=== PATIENT | female | born 1950 | race Two or more races ===

== ENCOUNTER 2024-11-18 06:30 | Day surgery (SDC) | payer MEDICARE ==
[2024-11-18] VITALS (9 sets, daily range): BP systolic 127–151; BP diastolic 70–81; PULSE 60–67; RESP 12–22; O2SAT 92–96
[~2024-11-18] VITALS: Ht 185.4 cm; Wt 152.0 kg
[~2024-11-18 06:30] MED LIST: CHOL500035 PO; DIGO0.25 PO; ESCI20TA PO; ESTR1TAB6 PO; FURO20TA3 PO; GLYB5TAB8 PO; MAGN400T40 OR; MEDR10TA9 PO; MULT1TAB95 PO; NEBI10TA2 PO
[2024-11-18] MEDS: IODIXANOL 320MG/ML 100ML BTL IV ONE ×2 (07:51→09:38)
[2024-11-18] MEDS: ANGIOMAX 250 MG VIAL IV ONE ×2 (08:56→09:46)
[2024-11-18] MEDS: fentaNYL CITRATE 100 MCG/2 ML VL ONE (08:56)
[2024-11-18] MEDS: HEPARIN SODIUM (PORCINE) 5000 UNITS/ML 1ML VIAL ONE (08:56)
[2024-11-18] MEDS: diphenhdrAMINE HCL 50 MG/1 ML VL ONE (08:56)
[2024-11-18] MEDS: methylPREDNISolone SOD SUCC 125 MG/2 ML VL ONE (08:56)
[2024-11-18] MEDS: VERAPAMIL 2.5MG/ML INJ 2ML VIAL IV ONE (08:56)
[2024-11-18] MEDS: SODIUM CHL 0.9% 50 ML ONE ×2 (08:57→09:46)
[2024-11-18] MEDS: FAMOTIDINE (10MG/ML) 2ML VL IV ONE (08:57)
[2024-11-18] MEDS: MIDAZOLAM HCL 2MG/2ML 2ml VIAL (1mg/ml) ONE (08:57)
[2024-11-18] MEDS: LIDOCAINE 2%HCL (LOCAL ANESTH.) INJ 20ML MDV ONE (08:57)
[2024-11-18] MEDS: ASPirin 81 mg TAB ONE (10:19)
[2024-11-18] MEDS: CLOPIDOGREL BISULFATE 75 MG TAB ONE ×2 (10:19)
--- NOTE | 2024-11-18 10:22 | DVHOP2 ---
Operative Report Procedures performed: Left heart catheterization and bilateral coronary angiogram PCI (drug-eluting stent deployment) of mid LAD Moderate sedation lasting more than 45 minutes Diagnosis: Two-vessel coronary artery disease Mid LAD with focal 85% lesion, status post PCI/drug-eluting stent deployment 1st obtuse marginal was a small-caliber vessel with 90% ostial lesion, to be managed medically 1st diagonal had 90% ostial lesion, to be managed medically LVEF of 50% with LVEDP of 14 mm Hg Cardiac suggestion for management: Dual antiplatelet therapy (loaded with aspirin/Plavix) for at least 1 year High potency statin, beta blockers, GIRISH inhibitor versus ARB Optimized medical therapy Lifestyle and risk factor modifications Findings: LVEF: 50% LVEDP: 14 mm Hg There was no transaortic valve pressure gradient Left main: Left main was coming off the left sinus of Valsalva. There was no disease in left main. LAD: LAD was coming off the left main. Mid LAD had a focal 85% lesion. At the site of the lesion there was a medium-sized diagonal with 90% focal lesion. Second diagonal was a medium-sized vessel with mild diffuse disease. The rest of LAD had mild diffuse disease. LCX: LCX was coming off the left main. It was codominant and provided left posterolateral branch. OM1 was a small-caliber vessel with 90% ostial lesion. OM2 was a large vessel with 40% focal lesion. Left posterolateral branch was a large vessel with mild diffuse disease. LCX itself had mild disease. RCA: RCA was coming off the right sinus of Valsalva. It was codominant and provided RPDA. Proximal RCA had 30% focal lesion. Other portions of RCA and branches revealed mild diffuse disease. Presentation: Patient is a 74-year-old female (transgender from male to female) patient who presented with chest pain to the office. Does have past medical history of pacemaker implantation for sick sinus syndrome, kidney stones, hypertension, CKD, diastolic heart failure, diabetes mellitus, pulmonary hypertension, skin rash and persistent atrial fibrillation. She refuses statins. She refuses mammogram. Has refused full anticoagulation. She has had urethral strictures before. Does have history of morbid obesity and has had gastric bypass before and is to go for skin full removal. Echocardiogram of September 02, 2024 revealed ejection fraction of 55-60%, biatrial enlargement, right ventricular systolic pressure of 40 mm Hg. Because of significant chest discomfort, non responding to medical therapy, she was sent for cardiac catheterization. Procedure: After obtaining informed consent, the patient was brought to the seed analysis laboratory assistant. She was prepped and draped in sterile fashion. Right radial artery was used for access site. 2 mg of Versed and 100 mcg of fentanyl were given for moderate sedation (lasting more than 45 minutes). Patient was also given Benadryl/Solu-Medrol/Pepcid for history of contrast allergy. Using modified Seldinger technique, the right radial artery was accessed and a 6 Panamanian slender sheath was inserted into it. 2.5 mg of verapamil and 200 mcg of nitroglycerin were given as a cocktail into right radial sheath. 5000 units of heparin was given peripherally. Five Panamanian tiger 4 diagnostic catheter was used to perform left heart catheterization (obtaining pressures and performing left ventriculography) and right coronary angiography. A 6 [place]amanian JL 3.5 diagnostic catheter was used to perform left coronary angiography. We did recognize different disease is in the coronary tree. Decision was made to proceed with intervention on the mid LAD lesion. Patient was started on Angiomax. A 6 [place]ian EBU guiding catheter was used to access the left coronary system. A run- through wire was used to cross the lesion. A 2.5 x 12 compliant/for a balloon was used for predilatation. At this point we decided to proceed with implanting the stent. A 2.75 x 18 drug-eluting/amy stent was deployed across the lesion (inflated to 18 atmospheres and making it 3.0 in size) successfully. Repeat angiography revealed well deployed stent. Prior to intervention, BECKY flow in LAD and branches was BECKY 3 flow. Post intervention, BECKY flow into LAD and branches remained BECKY 3 flow. Post intervention, the remaining disease in mid LAD was 0%. Stent deployment resulted in pinching of the diagonal. BECKY flow inside the diagonal remained BECKY 3 flow. Decision was made to manage it medically There was no dissection/hematoma/perforation. Patient tolerated the procedure with no complication. Right radial artery access site was managed by deploying a TR band. Fluoroscopy time: 8.9 minutes contrast: 130 mL of Visipaque ROSINA TEIXEIRA MD Nov 18, 2024 10:22
== END 2024-11-18 12:15 | disposition home or self-care (01) ==
LOC: CATH 06:30
PROVIDERS: ATTEND Internal Medicine Cardiovascular Disease
DX: I25.10 Atherosclerotic heart disease of native coronary artery without angina pectoris (principal); R07.9 Chest pain, unspecified; I49.5 Sick sinus syndrome; I27.20 Pulmonary hypertension, unspecified; I48.19 Other persistent atrial fibrillation; I13.0 Hypertensive heart and chronic kidney disease with heart failure and stage 1 through stage 4 chronic kidney disease, or unspecified chronic kidney disease; I50.32 Chronic diastolic (congestive) heart failure; N18.9 Chronic kidney disease, unspecified; E11.22 Type 2 diabetes mellitus with diabetic chronic kidney disease; E66.01 Morbid (severe) obesity due to excess calories; Z68.41 Body mass index [BMI] 40.0-44.9, adult; Z79.01 Long term (current) use of anticoagulants; Z87.442 Personal history of urinary calculi; Z95.5 Presence of coronary angioplasty implant and graft; Z98.84 Bariatric surgery status; Z98.890 Other specified postprocedural states; Z88.8 Allergy status to other drugs, medicaments and biological substances
CPT/HCPCS: 0523T; 93458; C1725; C1769; C1874; C1887; C1894; C9600; J0583; J1200; J1644; J2250; J2919; J3010; J3490; J7030; Q9967; 99152; 99153

== ENCOUNTER 2025-03-06 15:51 | Inpatient (IN) | payer MEDICARE ==
[~2025-03-06] VITALS: Ht 185.4 cm; Wt 158.0 kg
--- NOTE | 2025-03-06 16:46 | ED.PDOC ---
General HPI Comments 74-year-old female presents to the ED t with a chief complaint of hematuria and dizziness, which began 23 hours ago. The patient, who is a transgender female on hormonal therapy, reports similar symptoms in the past, when she was diagnosed and treated for urosepsis twice at [place]. She awoke today feeling feverish but did not take her temperature. As the day progressed, she became more dizzy and experienced a foggy mindset, which she fears may indicate another UTI. The patient denies any associated chills, abdominal pain, nausea, vomiting, diarrhea, back, or flank pain. Her medical history is significant for diabetes mellitus, hypertension, and the aforementioned urosepsis. She uses a CPAP at night for sleep apnea. She is followed by Dr. Gibson for cardiology, given a history of a pacemaker, PTCA, and a WATCHMAN device. Chief Complaint: Urinary Time Seen by MD: 16:29 Reviewed notes: Nurses Notes, Medications, Allergies Allergies: Uncoded Allergies: IVP dye, Levaquin, Griseofulvin, Montelukast (Allergy, Severe, 11/14/24) Home Meds Reported Medications Medroxyprogesterone Acetate (Medroxyprogesterone Aceta) 10 Mg Tab, 10 MG PO DAILY, MG 11/14/24 Magnesium Oxide (MAGNESIUM OXIDE) 400 Mg Tab, 400 MG OR DAILY, TAB 11/14/24 Cholecalciferol (Vitamin D) 5,000 Unit Cap, 5000 UNIT PO DAILY, CAP 11/14/24 Escitalopram Oxalate (Lexapro) 20 Mg Tab, 1 TAB PO DAILY, #90 TAB 3 Refills 11/14/24 Furosemide (Furosemide) 20 Mg Tab, 20 MG PO DAILY for 30 Days, MG 11/14/24 Multiple Vitamin (Multi Vitamin) 1 Tab Tab, 1 TAB PO DAILY, TAB 11/14/24 Nebivolol Hcl (Bystolic) 10 Mg Tab, 1.5 TAB PO DAILY, #90 TAB 1 Refill 11/14/24 Digoxin (Digoxin) 250 Mcg Tab, 250 MCG PO DAILY, TAB 11/14/24 Estradiol (Estradiol) 1 Mg Tab, 4 MG PO DAILY, MG 11/14/24 Glyburide (Glyburide) 5 Mg Tab, 5 MG PO DAILY for 30 Days, MG 11/14/24 Information Source: Patient Mode of Arrival: Ambulatory Severity: Moderate Timing: Hours (2) Duration: Since onset Onset: Spontaneous History of: UTI Modifying factors: None associated signs and symptoms: Hematuria Past Medical History PAST MEDICAL HISTORY: DM, HTN, UTI'S Surgical History: Pacemaker, PTCA Surgical History (Other): watchman TELE[employer] NETWORK PLANNER History: No 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 History Family History Family History: Reviewed,noncontributory to illness Social History Smoker: Non-Smoker Alcohol: Denies ETOH Use Drugs: Denies Drug Use Lives In: Home Constitutional: denies: chills, diaphoresis, fatigue, fever, malaise, sweats, weakness, others EENTM: denies: blurred vision, double vision, ear bleeding, ear discharge, ear drainage, ear pain, ear ringing, eye pain, eye redness, hearing loss, mouth pain, mouth swelling, nasal discharge, nose bleeding, nose congestion, nose pain, photophobia, tearing, throat pain, throat swelling, voice changes, others Respiratory: denies: cough, hemoptysis, orthopnea, SOB at rest, shortness of breath, SOB with excertion, stridor, wheezing, others Cardiovascular: denies: chest pain, dizzy spells, diaphoresis, Dyspnea on exertion, edema, irregular heart beat, left arm pain, lightheadedness, palpitations, PND, syncope, others Gastrointestinal: denies: abdomen distended, abdominal pain, blood streaked bowels, constipated, diarrhea, dysphagia, difficulty swallowing, hematemesis, melena, nausea, poor appetite, poor fluid intake, rectal bleeding, rectal pain, vomiting, others Genitourinary: reports: hematuria; denies: abnormal vagina bleeding, burning, dyspareunia, dysuria, flank pain, frequency, incontinence, pain, , vagina discharge, urgency, others Neurological: reports: dizziness; denies: fainting, headache, left sided numbness, left sided weakness, numbness, paresthesia, pre-existing deficit, right sided numbness, right sided weakness, seizure, speech problems, tingling, tremors, weakness, others Musculoskeletal: denies: back pain, gout, joint pain, joint swelling, muscle pain, muscle stiffness, neck pain, others Integumetry: denies: bruises, change in color, change in hair/nails, dryness, laceration, lesions, lumps, rash, wounds, others Allergic/Immunocompromised: denies: Difficulty Healing, Frequent Infections, Hives, Itching, others Hematologic/Lymphatic: denies: anemia, blood clots, easy bleeding, easy br uising, swollen glands, others Endocrine: denies: excessive hunger, excessive sweating, excessive thirst, excessive urination, flushing, intolerance to cold, intolerance to heat, unexplained weight gain, unexplained weight loss, others Psychiatric: denies: anxiety, bipolar disorder, depression, hopeless, panic disorder, schizophrenia, sleepless, suicidal, others All Other Systems: Reviewed and Negative Physical Exam General Appearance: Moderate Distress HEENT: Normal ENT Inspection, Pharynx Normal, TMs Normal Neck: Full Range of Motion, Non-Tender, Normal, Normal Inspection Respiratory: Chest Non-Tender, Lungs Clear, No Accessory Muscle Use, No Respiratory Distress, Normal Breath Sounds Cardiovascular: No Edema, No JVD, No Murmur, No Gallop, Normal Peripheral Pulses, Regular Rate/Rhythm Breast Exam: Deferred Gastrointestinal: No Organomegaly, Non Tender, No Pulsatile Mass, Normal Bowel Sounds, Soft Genitalia: Deferred Pelvic: Deferred Rectal: Deferred Extremities: No calf tenderness, Normal capillary refill, Normal inspection, Normal range of motion, Non-tender, No pedal edema Musculoskeletal : Apperance: Normal Neurologic: Alert, cash management clerk II-XII nml as Tested, No Motor Deficits, Normal Affect, Normal Mood, No Sensory Deficits Cerebellar Function: NOT DONE Reflexes: NOT DONE Skin: Dry, Normal Color, Warm Peripheral Pulses: 3+ Radial (R), 3+ Radial (L) Lymphatic: No Adenopathy Was a procedure done? Was a procedure done?: No Differential Diagnosis Kidney stone (Female): N/A Urinary Problem (Female): Pyelonephritis, Urinary retention, Urolithiasis, UTI, Vaginitis X-Ray, Labs, Meds, VS Vital Signs Date Time Temp Pulse Resp B/P (MAP) Pulse Ox O2 Delivery O2 Flow Rate FiO2 03/06/25 15:56 98.2 62 18 151/74 96 98.2 Patient alert. Came in because of urinary symptoms. Vitals stable. Answering questions. Possible urosepsis. Possible pyelonephritis. Urinary frequency. Patient states that similar symptoms the caused him to be septic. Establish intravenous access. Was given Bactrim. Explained to the patient. Continue monitoring. Time of 1ST Reevaluation: 16:34 Reevaluation 1ST: Unchanged Patient Education/Counseling: Diagnosis, Treatment, Prognosis Family Education/Counseling: Diagnosis, Treatment, Prognosis SEPSIS Sepsis Screen Date sepsis recognized/suspect: Mar 06, 2025 Time Sepsis recognized/suspect: 1556 Recent Procedure: No On Antibiotic Therapy: No Respiratory Rate >20: No Heart Rate >90: No Temp<36 C (96.8 F) or >38.3 C: No SBP <90 or MAP <65 mmHG: No New Acute Mental Status Change: No Is the patient on CPAP, BIPAP,: No Physician Orders Complete Blood Count (03/06/25 16:38) Urinalysis (03/06/25 16:38) Basic Metabolic Panel (03/06/25 16:38) Sodium Chloride 0.9% (03/06/25 16:45) Sulfameth-Trimeth 80/16mg-Ml (Bactrim) (03/06/25 16:45) Vital Signs Date Time Temp Pulse Resp B/P (MAP) Pulse Ox O2 Delivery O2 Flow Rate FiO2 03/06/25 15:56 98.2 62 18 151/74 96 98.2 Departure 1 Departure Time of Disposition: 17:04 Impression: Primary Impression: Sepsis due to urinary tract infection Disposition: ADMITTED INPATIENT Admit to: Med Surg Condition: Guarded Critical Care Note Critical Care Time?: No Stability Stability form required: No I personally scribed for MONTSERRAT BROWN MD ([email or web address]) on 03/06/25 at 16:46. Electronically submitted by Betty Alcaraz ([facility]). MONTSERRAT BROWN MD Mar 06, 2025 16:46
[2025-03-06] MEDS: SODIUM CHLORIDE 0.9% 1,000 ML IV ONE (17:29)
[2025-03-06 17:41] LABS: Hematocrit 39.2 % (36.0-46.0); Hemoglobin 13.1 g/dL (12.2-16.2); Mean Corpuscular Hemoglobin 29.0 pg (28.0-32.0); Mean Corpuscular Volume 87.3 fL (80.0-100.0); Nucleated Red Blood Cells % 0.1 %
[2025-03-06 17:48] LABS: Potassium 4.4 mmol/L (3.5-5.1); Sodium 142 mmol/L (136-145)
[2025-03-06 17:49] LABS: Anion Gap 10 (5-15); Carbon Dioxide 25 mmol/L (20-31)
[2025-03-06 17:53] LABS: Calcium 8.3 mg/dL (8.7-10.4); Chloride 107 mmol/L (98-107)
[2025-03-06 17:55] LABS: BUN/Creatinine Ratio 13.5 (10.0-20.0); Blood Urea Nitrogen 13 mg/dL (9-23)
[2025-03-06 17:58] LABS: Glucose 123 mg/dL (74-106)
[2025-03-06] MEDS ORDERED: ONDANSETRON HCL 4 MG/2 ML VIAL IV PRN (20:15)
[2025-03-06] MEDS: SULFAMETH-TRIMETH 80/16MG-ML 15 ML in D5W 5% 500 ML IV ONE (20:53)
[2025-03-06 21:02] LABS: Urine Protein, UAD TRACE (Negative)
[2025-03-06] MEDS: METOPROLOL TARTRATE 25 MG TAB PO SCH (23:00)
--- NOTE | 2025-03-06 23:13 | DVHHP2 ---
History of Present Illness Reason for Visit: Hematuria History of Present Illness 74-year-old female presents for evaluation of hematuria. Transgender female on hormone therapy reports a one day history of developing blood in the urine with associated chills, diaphoresis, headache. He states having a history of pr evious sepsis episodes from urinary tract infections in the symptoms seemed similar so she presented for further evaluation. No cardiac or respiratory complaints. Past Medical History Hypertension, diabetes mellitus, UTI Past Surgical History PTCA and pacemaker Family History Noncontributory Smoke: No ALCOHOL: none Drugs: None Lives: with Family Review of Systems Review of Systems Review of systems are currently negative otherwise addressed in HPI. Allergies: Uncoded Allergies: IVP dye, Levaquin, Griseofulvin, Montelukast (Allergy, Severe, 11/14/24) Medications Current Medications Medications Dose Ordered Sig/Kerry Route Start Time Stop Time Status Last Admin Dose Admin Ceftriaxone Sodium 50 ml @ 100 mls/hr DAILY@09 IV 03/07/25 09:00 Metoprolol Tartrate 25 mg BID PO 03/06/25 22:00 Furosemide 20 mg DAILY PO 03/07/25 10:00 Estradiol 4 mg DAILY PO 03/07/25 10:00 Digoxin 0.25 mg DAILY PO 03/07/25 10:00 Clopidogrel Bisulfate 75 mg DAILY PO 03/07/25 10:00 Aspirin 81 mg DAILY PO 03/07/25 10:00 Acetaminophen/ Hydrocodone Bitart 1 tab Q4HP PRN PO 03/06/25 20:15 Ondansetron HCl 4 mg Q4HP PRN IV 03/06/25 20:15 Acetaminophen 650 mg Q6HP PRN PO 03/06/25 20:15 Exam Vital Signs Vital Signs Date Time Temp Pulse Resp B/P (MAP) Pulse Ox O2 Delivery O2 Flow Rate FiO2 03/06/25 22:17 Room Air* 0 21 03/06/25 20:41 97.8 59 18 156/78 (104) 97 97.8 Exam Gen: 74-year-old female in mild distress Skin: Warm, dry, normal color and texture, no rash. HEENT: Normocephalic atraumatic, mucous membranes moist and pink. Neck: Cervical and supraclavicular nodes normal without enlargement, trachea is midline, thyroid gland is normal without masses. Pulmonary: Clear to auscultation and percussion bilaterally. Cardiac: Regular rate and rhythm. No murmur Abdomen: Soft, nontender, nondistended, bowel sounds present all 4 quadrants, no guarding, no rigidity, no organomegaly. Extremities: No cyanosis, clubbing, no edema Neuro: Cranial nerves II through XII grossly intact, normal affect and speech, no focal motor deficits. Labs/Xrays Labs Test 03/06/25 19:50 03/06/25 17:12 Range/Units Urine Color Yellow Yellow Urine Clarity Clear Clear Urine pH 5.5 5.0-9.0 Urine Specific [place] 1.024 1.001-1.035 Urine Protein Trace H Negative Urine Ketones Negative Negative Urine Blood 3+ H Negative /uL Urine Nitrite Negative Negative Urine Bilirubin Negative Negative Urine Urobilinogen 2 H Negative mg/dL Urine Leukocyte Esterase 2+ Negative /uL Urine RBC 485 0 - 4 /hpf Urine Microscopic WBC 21 H 0-5 /HPF Urine Squamous Epithelial Cells Few <5 /hpf Urine Bacteria None seen None Seen /hpf Urine Mucus Few None Seen Urine Glucose Normal Normal mg/dL White Blood Count 7.9 4.4-10.8 10^3/uL Red Blood Count 4.49 4.0-5.20 10^6/uL Hemoglobin 13.1 12.2-16.2 g/dL Hematocrit 39.2 36.0-46.0 % Mean Corpuscular Volume 87.3 80.0-100.0 fL Mean Corpuscular Hemoglobin 29.0 28.0-32.0 pg Mean Corpuscular Hemoglobin Concent 33.3 32.0-36.0 g/dL Red Cell Distribution Width 14.5 H 11.8-14.3 % Platelet Count 226 140-450 10^3/uL Mean Platelet Volume 8.1 6.9-10.8 fL Neutrophils (%) (Auto) 61.0 37.0-80.0 % Lymphocytes (%) (Auto) 27.9 10.0-50.0 % Monocytes (%) (Auto) 8.8 0.0-12.0 % Eosinophils (%) (Auto) 1.9 0.0-7.0 % Basophils (%) (Auto) 0.4 0.0-2.0 % Neutrophils # (Auto) 4.8 1.6-8.6 10 ^3/uL Lymphocytes # (Auto) 2.2 0.4-5.4 10 ^3/uL Monocytes # (Auto) 0.7 0-1.3 10 ^3/uL Eosinophils # (Auto) 0.2 0-0.8 10 ^3/uL Basophils # (Auto) 0 0-0.2 10 ^3/uL Nucleated Red Blood Cells 0.1 % Sodium Level 142 136-145 mmol/L Potassium Level 4.4 3.5-5.1 mmol/L Chloride Level 107 98-107 mmol/L Carbon Dioxide Level 25 20-31 mmol/L Anion Gap 10 5-15 Blood Urea Nitrogen 13 9-23 mg/dL Creatinine 0.96 0.550-1.02 mg/dL Glomerular Filtration Rate Calc 62 >90 mL/min BUN/Creatinine Ratio 13.5 10.0-20.0 Serum Glucose 123 H 74-106 mg/dL Calcium Level 8.3 L 8.7-10.4 mg/dL SEPSIS Sepsis Screen Date sepsis recognized/suspect: Mar 06, 2025 Time Sepsis recognized/suspect: 1555 Recent Procedure: No On Antibiotic Therapy: No Respiratory Rate >20: No Heart Rate >90: No Temp<36 C (96.8 F) or >38.3 C: No SBP <90 or MAP <65 mmHG: No New Acute Mental Status Change: No Is the patient on CPAP, BIPAP,: No Physician Orders Ceftriaxone 1gm/50ml (Rocephin) (03/07/25 09:00) Urine Bacterial Culture (03/06/25 20:10) Communication Order (03/06/25 20:10) Furosemide Tablet (Lasix Tablet) (03/07/25 10:00) Estradiol Tablet (Estrace Tablet) (03/07/25 10:00) Digoxin Tablet (Lanoxin Tablet) (03/07/25 10:00) Clopidogrel Bisulfate (Plavix) (03/07/25 10:00) Aspirin Tablet (03/07/25 10:00) Basic Metabolic Panel (03/07/25 04:00) Hydrocodone-Acet 5/325mg Tab ([place] 5/32 (03/06/25 20:15) Ondansetron Hcl (Zofran) (03/06/25 20:15) Complete Blood Count (03/07/25 04:00) Cardiac Diet-2gna,Lofat,Lochol (03/07/25 Breakfast) Condition: Stable (03/06/25 20:10) Acetaminophen Tablet (Tylenol Tablet) (03/06/25 20:15) Bedrest With Bathroom Privileg (03/06/25 20:10) Admit (03/06/25 21:19) Metoprolol Tartrate Tablet (Lopressor Ta (03/06/25 22:00) Vital Signs Date Time Temp Pulse Resp B/P (MAP) Pulse Ox O2 Delivery O2 Flow Rate FiO2 03/06/25 22:17 Room Air* 0 21 03/06/25 20:41 97.8 59 18 156/78 (104) 97 97.8 03/06/25 15:56 98.2 62 18 151/74 96 98.2 Laboratory Tests Test 03/06/25 17:12 White Blood Count 7.9 10^3/uL (4.4-10.8) Medications Medications Dose Ordered Sig/Kerry Route Start Time Stop Time Status Last Admin Dose Admin Sodium Chloride 1,000 ml @ 1,000 mls/hr Q1H ONCE IV 03/06/25 16:45 03/06/25 17:44 DC 03/06/25 17:29 1,000 MLS/HR Trimethoprim/ Sulfamethoxazole 15 ml/Dextrose 515 ml @ 171.667 mls/hr ONCE ONCE IV 03/06/25 16:45 03/06/25 19:44 DC 03/06/25 20:53 171.667 MLS/HR Assessment/Plan Assessment/Plan Assessment Complicated UTI Hematuria Diabetes mellitus Hypertension Plan Admit the patient to Med surge to the hospitalist Dieter/urine bacterial culture pending Resume home medications Continue treatment per orders. Plan discussed with: Patient My Orders Orders - CLOVIS SCHAFFER [facility] Procedure Category Date Status Time Ceftriaxone 1gm/50ml PHA 03/07/25 In Process (Rocephin) 09:00 Urine Bacterial MCKENNA 03/06/25 In Process Culture 20:10 Communication Order ORDERS 03/06/25 Transmitted 20:10 Furosemide Tablet PHA 03/07/25 In Process (Lasix Tablet) 10:00 Estradiol Tablet PHA 03/07/25 In Process (Estrace Tablet) 10:00 Digoxin Tablet PHA 03/07/25 In Process (Lanoxin Tablet) 10:00 Clopidogrel Bisulfate PHA 03/07/25 In Process (Plavix) 10:00 Aspirin Tablet PHA 03/07/25 In Process 10:00 Basic Metabolic Panel LAB 03/07/25 Verified 04:00 Hydrocodone-Acet PHA 03/06/25 In Process 5/325mg Tab ([place] 20:15 Ondansetron Hcl PHA 03/06/25 In Process (Zofran) 20:15 Complete Blood Count LAB 03/07/25 Verified 04:00 Cardiac DIET 03/07/25 Transmitted Diet-2gna,Lofat,Lochol Breakfast Condition: Stable SRINIVAS 03/06/25 In Process 20:10 Acetaminophen Tablet PHA 03/06/25 In Process (Tylenol Tablet) 20:15 Bedrest With Bathroom SRINIVAS 03/06/25 In Process Privileg 20:10 Admit ADMIT 03/06/25 Transmitted 21:19 Metoprolol Tartrate PHA 03/06/25 In Process Tablet (Lopressor Ta 22:00 Date of Service: Mar 06, 2025 Billing Provider: CLOVIS SCHAFFER Common Visit Codes: [id number] INP/OBS CARE (MOD) CLOVIS SCHAFFER Mar 06, 2025 23:12
[2025-03-06 23:55] VITALS: BP 153/83; PULSE 66; RESP 18; TEMP 98.6; O2SAT 96
[2025-03-07] MEDS: ACETAMINOPHEN 325 MG TAB PO PRN (00:15)
[2025-03-07] MEDS ORDERED: MAGN400T40 (00:37)
[2025-03-07] MEDS ORDERED: DOXE10CA34 PO (00:37)
[2025-03-07] MEDS ORDERED: FURO20TA3 PO (00:37)
[2025-03-07] MEDS ORDERED: CLOP75TA28 PO (00:37)
[2025-03-07 01:00] VITALS: BP 124/70; PULSE 63; RESP 18; TEMP 98.1; O2SAT 96
[2025-03-07 05:00] VITALS: BP 123/69; PULSE 76; RESP 15; TEMP 98.1; O2SAT 98
[2025-03-07 07:25] LABS: Hematocrit 40.0 % (36.0-46.0); Hemoglobin 13.3 g/dL (12.2-16.2); Mean Corpuscular Hemoglobin 29.4 pg (28.0-32.0); Mean Corpuscular Volume 87.9 fL (80.0-100.0); Nucleated Red Blood Cells % 0.0 %
[2025-03-07 07:36] LABS: Chloride 104 mmol/L (98-107); Potassium 4.1 mmol/L (3.5-5.1); Sodium 139 mmol/L (136-145)
[2025-03-07 07:37] LABS: Anion Gap 10 (5-15); Carbon Dioxide 25 mmol/L (20-31)
[2025-03-07 07:42] LABS: BUN/Creatinine Ratio 10.6 (10.0-20.0); Blood Urea Nitrogen 10 mg/dL (9-23); Calcium 8.1 mg/dL (8.7-10.4); Glucose 127 mg/dL (74-106)
[2025-03-07 09:00] VITALS: BP 122/60; PULSE 72; RESP 20; TEMP 97.7; O2SAT 97
[2025-03-07] MEDS: CLOPIDOGREL BISULFATE 75 MG TAB PO SCH (09:53)
[2025-03-07] MEDS: DIGOXIN 0.125 MG TAB PO SCH (09:56)
[2025-03-07] MEDS: FUROSEMIDE 20 MG TAB PO SCH (10:00)
[2025-03-07] MEDS: ESTRADIOL 1 MG TAB PO SCH (10:11)
[2025-03-07 12:59] VITALS: BP 166/72; PULSE 70; RESP 20; TEMP 99.3; O2SAT 98
--- NOTE | 2025-03-07 13:28 | DVHPN2 ---
Reviewed: Care Plan, H&P, Labs, Medications, Previous Orders, Radiology Changes from previous H/P or p: No Changes Objective Vitals Vital Signs Date Time Temp Pulse Resp B/P (MAP) Pulse Ox O2 Delivery O2 Flow Rate FiO2 03/07/25 12:59 99.3 70 20 166/72 (103) 98 99.3 03/06/25 23:55 Room Air* 0 21 Intake/Output Intake and Output 03/07/25 07:00 Intake Total 1915 ml Balance 1915 ml Intake Oral 400 ml IV Total 1515 ml # Voids 3 Medications Current Medications Medications Dose Ordered Sig/Kerry Route Start Time Stop Time Status Last Admin Dose Admin Ceftriaxone Sodium 50 ml @ 100 mls/hr DAILY@09 IV 03/07/25 09:00 03/07/25 09:53 100 MLS/HR Metoprolol Tartrate 25 mg BID PO 03/06/25 22:00 Furosemide 20 mg DAILY PO 03/07/25 10:00 Estradiol 4 mg DAILY PO 03/07/25 10:00 03/07/25 10:11 4 MG Digoxin 0.25 mg DAILY PO 03/07/25 10:00 03/07/25 09:56 0.25 MG Clopidogrel Bisulfate 75 mg DAILY PO 03/07/25 10:00 03/07/25 09:53 75 MG Aspirin 81 mg DAILY PO 03/07/25 10:00 03/07/25 09:54 81 MG Acetaminophen/ Hydrocodone Bitart 1 tab Q4HP PRN PO 03/06/25 20:15 Ondansetron HCl 4 mg Q4HP PRN IV 03/06/25 20:15 Acetaminophen 650 mg Q6HP PRN PO 03/06/25 20:15 03/07/25 00:15 650 MG Laboratory Results Laboratory Tests 03/07/25 06:17 Chemistry Test 03/06/25 17:12 03/07/25 06:17 Calcium Level 8.3 mg/dL (8.7-10.4) L 8.1 mg/dL (8.7-10.4) L Urinalysis Test 03/06/25 19:50 Urine Color Yellow (Yellow) Urine Clarity Clear (Clear) Urine pH 5.5 (5.0-9.0) Urine Specific [place] 1.024 (1.001-1.035) Urine Protein Trace (Negative) H Urine Ketones Negative (Negative) Urine Blood 3+ /uL (Negative) H Urine Nitrite Negative (Negative) Urine Bilirubin Negative (Negative) Urine Urobilinogen 2 mg/dL (Negative) H Urine Leukocyte Esterase 2+ /uL (Negative) Urine RBC 485 /hpf (0 - 4) Urine Microscopic WBC 21 /HPF (0-5) H Urine Squamous Epithelial Cells Few /hpf (<5) Urine Bacteria None seen /hpf (None Seen) Urine Mucus Few (None Seen) Urine Glucose Normal mg/dL (Normal) Labs and/or images reviewed: Labs reviewed by me, Image(s) reviewed by me Assessment/Plan Assessment/Plan Sepsis secondary to complicated UTI: Blood cultures urine cultures Rocephin Hematuria: CT abdomen pelvis without contrast, urology consult for Dr. Whitman Diabetes type 2 Hypertension: Metoprolol History of NE status post stents Possible congestive heart failure consult for patient's junction maker Dr. Mcginnis History of pacemaker Transgender female on hormone therapy Time spent 70 minutes Advanced care planning time 20 minutes Patient is full code Plan discussed with: Patient My Orders Orders - ORLANDO BOUCHER MD Procedure Category Date Status Time Blood Culture MCKENNA 03/07/25 Verified 13:21 Date of Service: Mar 07, 2025 Billing Provider: ORLANDO BOUCHER MD Common Visit Codes: [id number] CARE 30-74 MIN ORLANDO BOUCHER MD Mar 07, 2025 13:28
--- NOTE | 2025-03-07 15:02 | DVH ---
EXAM: CT CT AB PEL WO CON-NO ORAL OR IV INDICATION: Hematuria TECHNIQUE: Volumetric multidetector CT images of the abdomen and pelvis were obtained without contras t. All CT scans at this facility use dose modulation, iterative reconstruction, and/or weight based d osing when appropriate to reduce radiation dose to as low as reasonably achievable. COMPARISON: None FINDINGS: [LOWER CHEST]: Atelectasis in the right lung base. Left atrial appendage occlusion device. The cardia c size is normal without pericardial effusion. coronary artery calcifications. [LIVER]: Normal hepatic size without suspicious focal lesion. [GALLBLADDER AND BILIARY TREE]: No cholelithiasis. [SPLEEN]: Unremarkable. [PANCREAS]: Unremarkable. [ADRENAL GLANDS]: Unremarkable [KIDNEYS]: No hydronephrosis. No nephroureterolithiasis. [BLADDER]: Unremarkable for the degree distention. [REPRODUCTIVE ORGANS]: Hysterectomy [BOWEL/MESENTERY]: Postsurgical changes to the stomach. Normal appendix. No CT evidence of bowel obst ruction. [ASCITES]: Absent [LYMPHADENOPATHY]: No pathologically enlarged lymph nodes by CT size criteria [VASCULATURE]: No aneurysmal dilatation. [ABDOMINAL WALL]: Unremarkable. [MUSCULOSKELETAL]: No acute fracture or aggressive focal osseous lesion. Multifocal degenerative zuleta ge of the visualized spine. IMPRESSION: 1. No CT evidence of an acute abdominal/pelvic process. 2. No hydroureteronephrosis or nephroureterolithiasis. 3. Bladder is decompressed. 4. Minimal asymmetric right [id number]-left perinephric edema which may reflect acute kidney injury.
--- NOTE | 2025-03-07 16:26 | DVHINCON2 ---
Date of service: Mar 07, [address] Boucher Reason for Consultation hematuria History of Present Illness History Source: Patient, RN Notes, MD Notes Exam Limitations: No limitations HPI 74 yo transgender female on estradiol and progesterone with PMH of DM, HTN, pacemaker, sleep apnea, CAD with Watchman device placement on aspirin and plavix presents with urinary complaints. patient also has home oxygen. [place] feverish at home with chills and dysuria. Nursing note observed scant reddish brown staining on pad but urine was clear. Home Meds Reported Medications Escitalopram Oxalate (Lexapro) 20 Mg Tab, 15 MG PO DAILY, TAB 03/07/25 Magnesium Oxide (MAGNESIUM OXIDE) 400 Mg Tab, TAB 03/07/25 Clopidogrel Bisulfate (Plavix) 75 Mg Tab, 75 MG PO DAILY, TAB 03/07/25 Doxepin HCl (Doxepin Hydrochloride) 10 Mg Cap, 10 MG PO, CAP 03/07/25 Furosemide (Furosemide) 20 Mg Tab, 1 TAB PO Sunday Fr, #90 TAB 1 Refill 03/07/25 Medroxyprogesterone Acetate (Medroxyprogesterone Aceta) 10 Mg Tab, 10 MG PO DAILY, MG 11/14/24 Cholecalciferol (Vitamin D) 5,000 Unit Cap, 5000 UNIT PO DAILY, CAP 11/14/24 Multiple Vitamin (Multi Vitamin) 1 Tab Tab, 1 TAB PO DAILY, TAB 11/14/24 Nebivolol Hcl (Bystolic) 10 Mg Tab, 1.5 TAB PO DAILY, #90 TAB 1 Refill 11/14/24 Digoxin (Digoxin) 250 Mcg Tab, 250 MCG PO DAILY, TAB 11/14/24 Glyburide (Glyburide) 5 Mg Tab, 5 MG PO DAILY for 30 Days, MG 11/14/24 Discontinued Reported Medications Magnesium Oxide (MAGNESIUM OXIDE) 400 Mg Tab, 400 MG OR DAILY, TAB 11/14/24 Escitalopram Oxalate (Lexapro) 20 Mg Tab, 1 TAB PO DAILY, #90 TAB 3 Refills 11/14/24 Furosemide (Furosemide) 20 Mg Tab, 20 MG PO DAILY for 30 Days, MG 11/14/24 Estradiol (Estradiol) 1 Mg Tab, 4 MG PO DAILY, MG 11/14/24 Past Medical History Cardiac: AFIB, CHF, HTN, Cardiomyopathy Psychiatric: Depression, Other (hx of suicidal ideations) Renal/: UTI, Hematuria Past Surgical History: Cystoscopy, PTCA, Other (orchiectomy, lithotripsy, urethral dilation, bariatric surgery) Patient Family History: FH: Parkinson's disease FH: atrial fibrillation FH: colon cancer FH: hypertension FH: total knee replacement Sepsis Smoker: Quit Alocohol: None Drugs: None Domestic Violence: Neg Review of Systems Constitutional: Fever Genitourinary: Hematuria, Pain H&P Exam Vital Signs Vital Signs Date Time Temp Pulse Resp B/P (MAP) Pulse Ox O2 Delivery O2 Flow Rate FiO2 03/07/25 12:59 99.3 70 20 166/72 (103) 98 99.3 03/06/25 23:55 Room Air* 0 21 General Appeara: Well developed, Well nourished, Normal Appearance, Obese Pulmonary/Respiratory: Normal inspection, Normal breath sounds, Chest non- tender, Lungs clear Cardiovascular/Chest: Normal inspection, Regular rate, Normal Rhythm Neuro/Mental St: Alert, Oriented Appearance: Appropriate appearance, Appropriate insight Eye contact/ Speech: Cooperative, Good eye contact, Normal speech Labs/Xrays [place] [address] Ph: [phone] DIAGNOSTIC IMAGING Diagnostic Imaging Report : [id number] Signed PATIENT: JUAN MANUEL CHAVEZ ACCT: [id number] UNIT: [id number] : 1950 LOC: CENTRAL ROOM / BED: [facility] / AGE / SEX: 74 / F ADM STATUS: ADM IN SERVICE 1322 ORDERING PHYSICIAN: ORLANDO BOUCHER MD PROCEDURE(s): ABPL - CT AB PEL WO CON-NO ORAL OR IV REASON: Hematuria ORDER NUMBER(s): [id number], ACCESSION NUMBER(s): [id number] EXAM: CT CT AB PEL WO CON-NO ORAL OR IV INDICATION: Hematuria TECHNIQUE: Volumetric multidetector CT images of the abdomen and pelvis were obtained without contrast. All CT scans at this facility use dose modulation, iterative reconstruction, and/or weight based dosing when appropriate to reduce radiation dose to as low as reasonably achievable. COMPARISON: None FINDINGS: [LOWER CHEST]: Atelectasis in the right lung base. Left atrial appendage occlusion device. The cardiac size is normal without pericardial effusion. coronary artery calcifications. [LIVER]: Normal hepatic size without suspicious focal lesion. [GALLBLADDER AND BILIARY TREE]: No cholelithiasis. [SPLEEN]: Unremarkable. [PANCREAS]: Unremarkable. [ADRENAL GLANDS]: Unremarkable [KIDNEYS]: No hydronephrosis. No nephroureterolithiasis. [BLADDER]: Unremarkable for the degree distention. [REPRODUCTIVE ORGANS]: Hysterectomy [BOWEL/MESENTERY]: Postsurgical changes to the stomach. Normal appendix. No CT evidence of bowel obstruction. [ASCITES]: Absent [LYMPHADENOPATHY]: No pathologically enlarged lymph nodes by CT size criteria [VASCULATURE]: No aneurysmal dilatation. [ABDOMINAL WALL]: Unremarkable. [MUSCULOSKELETAL]: No acute fracture or aggressive focal osseous lesion. Multifocal degenerative change of the visualized spine. IMPRESSION: 1. No CT evidence of an acute abdominal/pelvic process. 2. No hydroureteronephrosis or nephroureterolithiasis. 3. Bladder is decompressed. 4. Minimal asymmetric right dqkbq-fosgfwr-wtfh-left perinephric edema which may reflect acute kidney injury. ATED BY: VAELNTE SYLVESTER MD DICTATED DATE/TIME: 03/07/25 1459 SIGNED BY: VALENTE SYLVESTER MD SIGNED DATE/TIME: 03/07/25 145 CC: Labs Test 03/07/25 06:17 03/06/25 19:50 Range/Units White Blood Count 9.8 4.4-10.8 10^3/uL Red Blood Count 4.55 4.0-5.20 10^6/uL Hemoglobin 13.3 12.2-16.2 g/dL Hematocrit 40.0 36.0-46.0 % Mean Corpuscular Volume 87.9 80.0-100.0 fL Mean Corpuscular Hemoglobin 29.4 28.0-32.0 pg Mean Corpuscular Hemoglobin Concent 33.4 32.0-36.0 g/dL Red Cell Distribution Width 14.2 11.8-14.3 % Platelet Count 200 140-450 10^3/uL Mean Platelet Volume 8.2 6.9-10.8 fL Neutrophils (%) (Auto) 88.9 H 37.0-80.0 % Lymphocytes (%) (Auto) 4.7 L 10.0-50.0 % Monocytes (%) (Auto) 4.9 0.0-12.0 % Eosinophils (%) (Auto) 1.1 0.0-7.0 % Basophils (%) (Auto) 0.4 0.0-2.0 % Neutrophils # (Auto) 8.7 H 1.6-8.6 10 ^3/uL Lymphocytes # (Auto) 0.5 0.4-5.4 10 ^3/uL Monocytes # (Auto) 0.5 0-1.3 10 ^3/uL Eosinophils # (Auto) 0.1 0-0.8 10 ^3/uL Basophils # (Auto) 0 0-0.2 10 ^3/uL Nucleated Red Blood Cells 0.0 % Sodium Level 139 136-145 mmol/L Potassium Level 4.1 3.5-5.1 mmol/L Chloride Level 104 98-107 mmol/L Carbon Dioxide Level 25 20-31 mmol/L Anion Gap 10 5-15 Blood Urea Nitrogen 10 9-23 mg/dL Creatinine 0.94 0.550-1.02 mg/dL Glomerular Filtration Rate Calc 64 >90 mL/min BUN/Creatinine Ratio 10.6 10.0-20.0 Serum Glucose 127 H 74-106 mg/dL Calcium Level 8.1 L 8.7-10.4 mg/dL Urine Color Yellow Yellow Urine Clarity Clear Clear Urine pH 5.5 5.0-9.0 Urine Specific [place] 1.024 1.001-1.035 Urine Protein Trace H Negative Urine Ketones Negative Negative Urine Blood 3+ H Negative /uL Urine Nitrite Negative Negative Urine Bilirubin Negative Negative Urine Urobilinogen 2 H Negative mg/dL Urine Leukocyte Esterase 2+ Negative /uL Urine RBC 485 0 - 4 /hpf Urine Microscopic WBC 21 H 0-5 /HPF Urine Squamous Epithelial Cells Few <5 /hpf Urine Bacteria None seen None Seen /hpf Urine Mucus Few None Seen Urine Glucose Normal Normal mg/dL Microbiology Date/Time Source Procedure Growth Status 03/06/25 19:50 Voided Urine Urine Culture - Preliminary Resulted Assessment/Plan Problem List: (1) Transgender woman on hormone therapy (2) UTI (urinary tract infection) Plan treat UTI outpt f/u urology Plan discussed with: Patient, Other FELICIA WEST NP Mar 07, 2025 16:26
[2025-03-07 16:57] VITALS: PULSE 77; RESP 20; TEMP 97.9; O2SAT 96
[2025-03-07 21:00] VITALS: BP 124/54; PULSE 67; RESP 18; TEMP 97.9; O2SAT 97
--- NOTE | 2025-03-07 22:59 | DVHINCON2 ---
Date of service: Mar 07, 2025 Reason for Consultation Pacemaker, Atrial fibrillation History of Present Illness The patient is a 74-year-old transgender female who initially presented to the emergency department on 03/06/2025 with hematuria and dizziness. She reported that these symptoms began two to three hours prior to arrival. She described experiencing similar symptoms in the past, during which she was admitted for urosepsis at [facility]. On the day of presentation, she awoke feeling feverish, dizzy, and mentally foggy, which she feared could indicate another urinary tract infection. She denies chest pain, shortness of breath, or palpitations at present. Laboratory evaluation revealed a hemoglobin of 13.1 g/dL, potassium 4.4 mmol/L, creatinine 0.96 mg/dL, and GFR 62 mL/min/1.73 m. Urinalysis showed the presence of blood, leukocyte esterase, and trace protein. CT of the abdomen and pelvis demonstrated no acute abdominal or pelvic process, no hydronephrosis or hydroureter lithiasis, and a decompressed bladder. There was minimal asymmetric perinephric edema, greater on the right than the left, which may reflect acute kidney injury. Her past medical history is significant for atrial fibrillation status post Watchman device and no longer on anticoagulation, coronary artery disease on DAPT, chronic kidney disease, pulmonary hypertension, and sick sinus syndrome with a [employer] Rupesh pacemaker. Cardiology was consulted to manage cardiac aspects of care Outpatient echocardiogram (08/2024) shows an ejection fraction of 59%. Left heart catheterization and coronary angiogram (11/2024) revealed two-vessel coronary artery disease with a mid left anterior descending artery focal 85% lesion treated with percutaneous coronary intervention and drug-eluting stent deployment. The first obtuse marginal branch was noted to have a small caliber vessel with a 90% ostial lesion to be managed medically. The first diagonal branch had a 90% ostial lesion also to be managed medically. Left ventricular ejection fraction was measured at 50% with a left ventricular end-diastolic pressure of 14 mmHg. Patient was recommended to remain on dual antiplatelet therapy for at least one year Family History: FH: Parkinson's disease FH: atrial fibrillation FH: colon cancer FH: hypertension FH: total knee replacement Sepsis Allergies: Coded Allergies: Metoprolol (Verified Adverse Reaction, Unknown, 03/07/25) States that she had reaction to Metoprolol before, forgot what reaction was. Uncoded Allergies: IVP dye, Levaquin, Griseofulvin, Montelukast (Allergy, Severe, 11/14/24) Home Meds Reported Medications Escitalopram Oxalate (Lexapro) 20 Mg Tab, 15 MG PO DAILY, TAB 03/07/25 Magnesium Oxide (MAGNESIUM OXIDE) 400 Mg Tab, TAB 03/07/25 Clopidogrel Bisulfate (Plavix) 75 Mg Tab, 75 MG PO DAILY, TAB 03/07/25 Doxepin HCl (Doxepin Hydrochloride) 10 Mg Cap, 10 MG PO, CAP 03/07/25 Furosemide (Furosemide) 20 Mg Tab, 1 TAB PO Sunday Fr, #90 TAB 1 Refill 03/07/25 Medroxyprogesterone Acetate (Medroxyprogesterone Aceta) 10 Mg Tab, 10 MG PO DAILY, MG 11/14/24 Cholecalciferol (Vitamin D) 5,000 Unit Cap, 5000 UNIT PO DAILY, CAP 11/14/24 Multiple Vitamin (Multi Vitamin) 1 Tab Tab, 1 TAB PO DAILY, TAB 11/14/24 Nebivolol Hcl (Bystolic) 10 Mg Tab, 1.5 TAB PO DAILY, #90 TAB 1 Refill 11/14/24 Digoxin (Digoxin) 250 Mcg Tab, 250 MCG PO DAILY, TAB 11/14/24 Glyburide (Glyburide) 5 Mg Tab, 5 MG PO DAILY for 30 Days, MG 11/14/24 Discontinued Reported Medications Magnesium Oxide (MAGNESIUM OXIDE) 400 Mg Tab, 400 MG OR DAILY, TAB 11/14/24 Escitalopram Oxalate (Lexapro) 20 Mg Tab, 1 TAB PO DAILY, #90 TAB 3 Refills 11/14/24 Furosemide (Furosemide) 20 Mg Tab, 20 MG PO DAILY for 30 Days, MG 11/14/24 Estradiol (Estradiol) 1 Mg Tab, 4 MG PO DAILY, MG 11/14/24 Current Medications Current Medications Medications (Trade) Dose Ordered Sig/Kerry Route PRN Reason Start Time Stop Time Status Last Admin Ceftriaxone Sodium 50 ml @ 100 mls/hr DAILY@09 IV 03/07/25 09:00 03/07/25 09:53 Furosemide (Lasix Tablet) 20 mg DAILY PO 03/07/25 10:00 Estradiol (Estrace Tablet) 4 mg DAILY PO 03/07/25 10:00 03/07/25 10:11 Digoxin (Lanoxin Tablet) 0.25 mg DAILY PO 03/07/25 10:00 03/07/25 09:56 Clopidogrel Bisulfate (Plavix) 75 mg DAILY PO 03/07/25 10:00 03/07/25 09:53 Aspirin 81 mg DAILY PO 03/07/25 10:00 03/07/25 09:54 Review of Systems A 14-point review of systems is negative unless otherwise noted in HPI Vital Signs Vital Signs Date Time Temp Pulse Resp B/P (MAP) Pulse Ox O2 Delivery O2 Flow Rate FiO2 03/07/25 21:00 97.9 67 18 124/54 (77) 97 97.9 03/07/25 20:00 Nasal Cannula* 4 36 Physical Exam Heart: S1 and S2 present. The patient is in sinus rhythm. Lungs: Clear to auscultation. Abdomen: Benign. Extremities: Distal pulses palpable, 2+. No evidence for peripheral edema Labs/Diagnostic Data Labs Test 03/07/25 06:17 03/06/25 19:50 Range/Units White Blood Count 9.8 4.4-10.8 10^3/uL Red Blood Count 4.55 4.0-5.20 10^6/uL Hemoglobin 13.3 12.2-16.2 g/dL Hematocrit 40.0 36.0-46.0 % Mean Corpuscular Volume 87.9 80.0-100.0 fL Mean Corpuscular Hemoglobin 29.4 28.0-32.0 pg Mean Corpuscular Hemoglobin Concent 33.4 32.0-36.0 g/dL Red Cell Distribution Width 14.2 11.8-14.3 % Platelet Count 200 140-450 10^3/uL Mean Platelet Volume 8.2 6.9-10.8 fL Neutrophils (%) (Auto) 88.9 H 37.0-80.0 % Lymphocytes (%) (Auto) 4.7 L 10.0-50.0 % Monocytes (%) (Auto) 4.9 0.0-12.0 % Eosinophils (%) (Auto) 1.1 0.0-7.0 % Basophils (%) (Auto) 0.4 0.0-2.0 % Neutrophils # (Auto) 8.7 H 1.6-8.6 10 ^3/uL Lymphocytes # (Auto) 0.5 0.4-5.4 10 ^3/uL Monocytes # (Auto) 0.5 0-1.3 10 ^3/uL Eosinophils # (Auto) 0.1 0-0.8 10 ^3/uL Basophils # (Auto) 0 0-0.2 10 ^3/uL Nucleated Red Blood Cells 0.0 % Sodium Level 139 136-145 mmol/L Potassium Level 4.1 3.5-5.1 mmol/L Chloride Level 104 98-107 mmol/L Carbon Dioxide Level 25 20-31 mmol/L Anion Gap 10 5-15 Blood Urea Nitrogen 10 9-23 mg/dL Creatinine 0.94 0.550-1.02 mg/dL Glomerular Filtration Rate Calc 64 >90 mL/min BUN/Creatinine Ratio 10.6 10.0-20.0 Serum Glucose 127 H 74-106 mg/dL Calcium Level 8.1 L 8.7-10.4 mg/dL Urine Color Yellow Yellow Urine Clarity Clear Clear Urine pH 5.5 5.0-9.0 Urine Specific [place] 1.024 1.001-1.035 Urine Protein Trace H Negative Urine Ketones Negative Negative Urine Blood 3+ H Negative /uL Urine Nitrite Negative Negative Urine Bilirubin Negative Negative Urine Urobilinogen 2 H Negative mg/dL Urine Leukocyte Esterase 2+ Negative /uL Urine RBC 485 0 - 4 /hpf Urine Microscopic WBC 21 H 0-5 /HPF Urine Squamous Epithelial Cells Few <5 /hpf Urine Bacteria None seen None Seen /hpf Urine Mucus Few None Seen Urine Glucose Normal Normal mg/dL Microbiology Date/Time Source Procedure Growth Status 03/06/25 19:50 Voided Urine Urine Culture - Preliminary Resulted Assessment Paroxysmal atrial fibrillation Chronic kidney disease Urinary tract infection Pacemaker (ST RUPESH) Dizziness Plan/Recommendation It is recommended to proceed with interrogation of the patients pacemaker to evaluate for any arrhythmias or device-related issues that could explain her d izziness. Blood pressure and orthostatic vital signs should be obtained to assess for hemodynamic changes that may contribute to her symptoms. Continued monitoring of renal function is advised given her history of chronic kidney disease and the mild perinephric edema noted on imaging. Request for device interrogation (St[employer] Rupesh) Proceed with close rate and rhythm surveillance Proceed with close hemodynamic surveillance Proceed with optimized blood pressure control Transfuse to sustain HGB levels above 7.0 Sustain Magnesium level greater than 2.0 Sustain Potassium level greater than 4.0 Follow up renal function and electrolytes Continue Daul Antiplatelet therapy Management in Telemetry Management of UTI per Primary Team Will proceed to follow from a cardiac perspective Further recommendations per clinical progression All available labs, EKGs, and images were personally reviewed Patient's status, findings, and plan of care was discussed and reviewed with supervising physician Dr. Carney, who is in agreement with current plan of care. Plan of care discussed with and agreed upon by patient/family/Primary RN. Prognosis: Guarded Thank you for allowing me to participate in the care of this patient. Further recommendations will depend on clinical progression, hospitalist, and other consultants. Will continue to follow with Primary. If you have any questions, please do not hesitate to contact me. A total of 75 minutes was spent reviewing the patient record, examining the patient, making a diagnostic and therapeutic plan, discussing this plan with medical personnel, following up on diagnostic studies and following the patient for clinical stability excluding any and all procedures. At least 50% of this time was spent in direct, [id number] contact. Plan discussed with: Patient DAVID HUNTER TOOL DISTRIBUTOR Mar 07, 2025 22:59
[2025-03-08 05:00] VITALS: BP 124/54; PULSE 67; RESP 18; TEMP 97.9; O2SAT 96
[2025-03-08 09:00] VITALS: BP 120/75; PULSE 63; RESP 17; TEMP 97.7; O2SAT 98
--- NOTE | 2025-03-08 09:16 | DVHPN2 ---
Reviewed: Care Plan, H&P, Labs, Medications, Previous Orders, Radiology Changes from previous H/P or p: No Changes Objective Vitals Vital Signs Date Time Temp Pulse Resp B/P (MAP) Pulse Ox O2 Delivery O2 Flow Rate FiO2 03/08/25 05:53 101.0 03/08/25 05:00 67 18 124/54 (77) 96 03/07/25 20:00 Nasal Cannula* 4 36 Intake/Output Intake and Output 03/08/25 07:00 Intake Total 1950 ml Balance 1950 ml Intake Oral 1900 ml IV Total 50 ml # Voids 3 Medications Current Medications Medications Dose Ordered Sig/Kerry Route Start Time Stop Time Status Last Admin Dose Admin Ceftriaxone Sodium 50 ml @ 100 mls/hr DAILY@09 IV 03/07/25 09:00 03/07/25 09:53 100 MLS/HR Metoprolol Tartrate 25 mg BID PO 03/06/25 22:00 Furosemide 20 mg DAILY PO 03/07/25 10:00 Estradiol 4 mg DAILY PO 03/07/25 10:00 03/07/25 10:11 4 MG Digoxin 0.25 mg DAILY PO 03/07/25 10:00 03/07/25 09:56 0.25 MG Clopidogrel Bisulfate 75 mg DAILY PO 03/07/25 10:00 03/07/25 09:53 75 MG Aspirin 81 mg DAILY PO 03/07/25 10:00 03/07/25 09:54 81 MG Acetaminophen/ Hydrocodone Bitart 1 tab Q4HP PRN PO 03/06/25 20:15 Ondansetron HCl 4 mg Q4HP PRN IV 03/06/25 20:15 Acetaminophen 650 mg Q6HP PRN PO 03/06/25 20:15 03/08/25 05:53 650 MG Laboratory Results Laboratory Tests 03/07/25 06:17 Urinalysis Test 03/06/25 19:50 Urine Color Yellow (Yellow) Urine Clarity Clear (Clear) Urine pH 5.5 (5.0-9.0) Urine Specific [place] 1.024 (1.001-1.035) Urine Protein Trace (Negative) H Urine Ketones Negative (Negative) Urine Blood 3+ /uL (Negative) H Urine Nitrite Negative (Negative) Urine Bilirubin Negative (Negative) Urine Urobilinogen 2 mg/dL (Negative) H Urine Leukocyte Esterase 2+ /uL (Negative) Urine RBC 485 /hpf (0 - 4) Urine Microscopic WBC 21 /HPF (0-5) H Urine Squamous Epithelial Cells Few /hpf (<5) Urine Bacteria None seen /hpf (None Seen) Urine Mucus Few (None Seen) Urine Glucose Normal mg/dL (Normal) Microbiology Microbiology Date/Time Source Procedure Growth Status 03/06/25 19:50 Voided Urine Urine Culture - Preliminary Resulted Labs and/or images reviewed: Labs reviewed by me, Image(s) reviewed by me Assessment/Plan Assessment/Plan Sepsis secondary to complicated UTI: Blood cultures pending, urine cultures pending, continue Rocephin Hematuria: CT abdomen pelvis without contrast, urology consult for Dr. Whitman Diabetes type 2 Hypertension: Metoprolol History of PA status post stents Possible congestive heart failure consult for patient's district resource officer Dr. Mcginnis appreciated History of pacemaker Transgender female on hormone therapy Time spent 70 minutes Advanced care planning time 20 minutes Patient is full code RN Alina at bed side. Plan discussed with: Patient My Orders Orders - ORLANDO BOUCHER MD Procedure Category Date Status Time Blood Culture MCKENNA 03/07/25 In Process 13:21 Ct Ab Pel Wo Con-No CT 03/07/25 Resulted Oral Or Iv 13:22 Code Status CODE 03/07/25 Transmitted 13:28 * Urology Consult CONS 03/07/25 Transmitted 13:30 * Cardiology Consult CONS 03/07/25 Transmitted 13:32 Cardiac DIET 03/08/25 Transmitted Diet-2gna,Lofat,Lochol Breakfast Date of Service: Mar 08, 2025 Billing Provider: ORLANDO BOUCHER MD Common Visit Codes: [id number] INP/OBS CARE(HIGH) ORLANDO BOUCHER MD Mar 08, 2025 09:16
--- NOTE | 2025-03-08 12:00 | DVHPN2 ---
Progress Note - Dictate Date Seen: Mar 08, 2025 Medical Necessity Reason Pt with a Central, PICC or Fol: No Subjective Patient seen and examined at the bedside within Telemetry. Vital signs stable. Chart reviewed. Patient is in sinus rhythm, denies chest pain, shortness of breath or palpitations. Patient's medications, allergies, past medical, surgical, social and family histories were obtained and reviewed as appropriate. vital signs Vital Sign Date Time Temp Pulse Resp B/P (MAP) Pulse Ox O2 Delivery O2 Flow Rate FiO2 03/08/25 09:17 65 03/08/25 09:00 97.7 17 120/75 (90) 98 97.7 03/08/25 08:00 Nasal Cannula* 4 36 Total Intake and Output 03/07/25 03/07/25 03/08/25 15:00 23:00 07:00 Intake Total 650 ml 800 ml 500 ml Balance 650 ml 800 ml 500 ml medications Current Medications Medications Dose Ordered Sig/Kerry Route Start Time Stop Time Status Last Admin Dose Admin Ceftriaxone Sodium 50 ml @ 100 mls/hr DAILY@09 IV 03/07/25 09:00 03/08/25 09:21 100 MLS/HR Metoprolol Tartrate 25 mg BID PO 03/06/25 22:00 Furosemide 20 mg DAILY PO 03/07/25 10:00 Estradiol 4 mg DAILY PO 03/07/25 10:00 03/08/25 09:18 4 MG Digoxin 0.25 mg DAILY PO 03/07/25 10:00 03/08/25 09:17 0.25 MG Clopidogrel Bisulfate 75 mg DAILY PO 03/07/25 10:00 03/08/25 09:16 75 MG Aspirin 81 mg DAILY PO 03/07/25 10:00 03/08/25 09:17 81 MG Acetaminophen/ Hydrocodone Bitart 1 tab Q4HP PRN PO 03/06/25 20:15 Ondansetron HCl 4 mg Q4HP PRN IV 03/06/25 20:15 Acetaminophen 650 mg Q6HP PRN PO 03/06/25 20:15 03/08/25 05:53 650 MG objective Review of Systems: A 14-point review of systems is negative unless otherwise noted in HPI Physical Exam: Heart: S1 and S2 present. The patient is in sinus rhythm. Lungs: Clear to auscultation Abdomen: Benign. Extremities: Distal pulses palpable, 2+. No evidence for peripheral edema laboratory and microbiology Laboratory Tests 03/07/25 06:17 Test 03/07/25 06:17 Range/Units Serum Glucose 127 H 74-106 mg/dL Assessment/Plan Assessment: The patient is a 74-year-old transgender female who initially presented to the emergency department on 03/06/2025 with hematuria and dizziness. She reported that these symptoms began two to three hours prior to arrival. She described experiencing similar symptoms in the past, during which she was admitted for urosepsis at [facility]. On the day of presentation, she awoke feeling feverish, dizzy, and mentally foggy, which she feared could indicate another urinary tract infection. She denies chest pain, shortness of breath, or palpitations at present. Laboratory evaluation revealed a hemoglobin of 13.1 g/dL, potassium 4.4 mmol/L, creatinine 0.96 mg/dL, and GFR 62 mL/min/1.73 m. Urinalysis showed the presence of blood, leukocyte esterase, and trace protein. CT of the abdomen and pelvis demonstrated no acute abdominal or pelvic process, no hydronephrosis or hydroureter lithiasis, and a decompressed bladder. There was minimal asymmetric perinephric edema, greater on the right than the left, which may reflect acute kidney injury. Her past medical history is significant for atrial fibrillation status post Watchman device and no longer on anticoagulation, coronary artery disease on DAPT, chronic kidney disease, pulmonary hypertension, and sick sinus syndrome with a St[employer] Rupesh pacemaker. Cardiology was consulted to manage cardiac aspects of care Outpatient echocardiogram (08/2024) shows an ejection fraction of 59%. Left heart catheterization and coronary angiogram (11/2024) revealed two-vessel coronary artery disease with a mid left anterior descending artery focal 85% lesion treated with percutaneous coronary intervention and drug-eluting stent deployment. The first obtuse marginal branch was noted to have a small caliber vessel with a 90% ostial lesion to be managed medically. The first diagonal branch had a 90% ostial lesion also to be managed medically. Left ventricular ejection fraction was measured at 50% with a left ventricular end-diastolic pressure of 14 mmHg. Patient was recommended to remain on dual antiplatelet therapy for at least one year Paroxysmal atrial fibrillation Coronary artery disease Chronic kidney disease Urinary tract infection Pacemaker (ST RUPESH) Hematuria Dizziness Cardiology Recommendations: It is recommended to proceed with interrogation of the patients pacemaker to evaluate for any arrhythmias or device-related issues that could explain her dizziness. Blood pressure and orthostatic vital signs should be obtained to assess for hemodynamic changes that may contribute to her symptoms. Continued monitoring of renal function is advised given her history of chronic kidney disease and the mild perinephric edema noted on imaging. Request for device interrogation (St. Rupesh) Proceed with close rate and rhythm surveillance Proceed with close hemodynamic surveillance Proceed with optimized blood pressure control Transfuse to sustain HGB levels above 7.0 Sustain Magnesium level greater than 2.0 Sustain Potassium level greater than 4.0 Follow up renal function and electrolytes Continue Dual Antiplatelet therapy Management in Telemetry Management of UTI per Primary Team Will proceed to follow from a cardiac perspective Further recommendations per clinical progression All available labs, EKGs, and images were personally reviewed Patient's status, findings, and plan of care was discussed and reviewed with supervising physician Dr. Carney, who is in agreement with current plan of care. Plan of care discussed with and agreed upon by patient/family/Primary RN. Prognosis: Guarded Thank you for allowing me to participate in the care of this patient. Further recommendations will depend on clinical progression, hospitalist, and other consultants. Will continue to follow with Primary. If you have any questions, please do not hesitate to contact me. A total of 75 minutes was spent reviewing the patient record, examining the patient, making a diagnostic and therapeutic plan, discussing this plan with medical personnel, following up on diagnostic studies and following the patient for clinical stability excluding any and all procedures. At least 50% of this time was spent in direct, [id number] contact. Plan discussed with: Patient Plan discussed with: Patient DAVID HUNTER NP Mar 08, 2025 12:00
[2025-03-08 13:00] VITALS: BP 143/74; PULSE 66; RESP 19; TEMP 98; O2SAT 99
[2025-03-08 17:14] VITALS: BP 135/66; PULSE 68; RESP 22; TEMP 98.5; O2SAT 97
[2025-03-08 19:30] VITALS: PULSE 60
[2025-03-08 21:00] VITALS: BP 113/62; PULSE 66; RESP 18; TEMP 97.6; O2SAT 96
[2025-03-09] VITALS (7 sets, daily range): BP systolic 113–136; BP diastolic 55–79; PULSE 60–69; RESP 18–20; TEMP 97.4–98.2; O2SAT 94–100
[2025-03-09 07:13] LABS: Hematocrit 38.2 % (36.0-46.0); Hemoglobin 12.9 g/dL (12.2-16.2); Mean Corpuscular Hemoglobin 29.5 pg (28.0-32.0); Mean Corpuscular Volume 87.2 fL (80.0-100.0); Nucleated Red Blood Cells % 0.3 %
[2025-03-09 07:17] LABS: Alanine Aminotransferase 12 U/L (7-40); Albumin 3.6 g/dL (3.2-4.8); Anion Gap 8 (5-15); BUN/Creatinine Ratio 8.8 (10.0-20.0); Carbon Dioxide 26 mmol/L (20-31); Chloride 102 mmol/L (98-107); Potassium 4.1 mmol/L (3.5-5.1); Sodium 136 mmol/L (136-145); Total Protein 6.2 g/dL (5.7-8.2)
[2025-03-09 07:18] LABS: Alkaline Phosphatase 31 U/L (46-116); Bilirubin, Total 0.6 mg/dL (0.2-1.0); Blood Urea Nitrogen 8 mg/dL (9-23); Calcium 8.1 mg/dL (8.7-10.4); Glucose 118 mg/dL (74-106)
--- NOTE | 2025-03-09 10:54 | DVHPN2 ---
Reviewed: Care Plan, H&P, Labs, Medications, Previous Orders, Radiology Changes from previous H/P or p: No Changes Objective Vitals Vital Signs Date Time Temp Pulse Resp B/P (MAP) Pulse Ox O2 Delivery O2 Flow Rate FiO2 03/09/25 10:21 69 03/09/25 10:20 131/68 03/09/25 09:00 98.2 18 97 98.2 03/09/25 08:00 Room Air* 0 21 Intake/Output Intake and Output 03/09/25 07:00 Intake Total 1100 ml Balance 1100 ml Intake Oral 1050 ml IV Total 50 ml # Voids 4 Medications Current Medications Medications Dose Ordered Sig/Kerry Route Start Time Stop Time Status Last Admin Dose Admin Ceftriaxone Sodium 50 ml @ 100 mls/hr DAILY@09 IV 03/07/25 09:00 03/08/25 09:21 100 MLS/HR Metoprolol Tartrate 25 mg BID PO 03/06/25 22:00 Hold Furosemide 20 mg DAILY PO 03/07/25 10:00 03/09/25 10:20 20 MG Estradiol 4 mg DAILY PO 03/07/25 10:00 03/09/25 10:20 4 MG Digoxin 0.25 mg DAILY PO 03/07/25 10:00 03/09/25 10:21 0.25 MG Clopidogrel Bisulfate 75 mg DAILY PO 03/07/25 10:00 03/09/25 10:20 75 MG Aspirin 81 mg DAILY PO 03/07/25 10:00 03/09/25 10:20 81 MG Acetaminophen/ Hydrocodone Bitart 1 tab Q4HP PRN PO 03/06/25 20:15 Ondansetron HCl 4 mg Q4HP PRN IV 03/06/25 20:15 Acetaminophen 650 mg Q6HP PRN PO 03/06/25 20:15 03/08/25 16:20 650 MG Laboratory Results Laboratory Tests 03/09/25 06:15 Chemistry Test 03/09/25 06:15 Albumin 3.6 g/dL (3.2-4.8) Calcium Level 8.1 mg/dL (8.7-10.4) L Total Protein 6.2 g/dL (5.7-8.2) LFT Test 03/09/25 06:15 Alanine Aminotransferase (ALT) 12 U/L (7-40) Alkaline Phosphatase 31 U/L (46-116) L Aspartate Amino Transferase (AST) 17 U/L (13-40) Total Bilirubin 0.6 mg/dL (0.2-1.0) Urinalysis Test 03/06/25 19:50 Urine Color Yellow (Yellow) Urine Clarity Clear (Clear) Urine pH 5.5 (5.0-9.0) Urine Specific [place] 1.024 (1.001-1.035) Urine Protein Trace (Negative) H Urine Ketones Negative (Negative) Urine Blood 3+ /uL (Negative) H Urine Nitrite Negative (Negative) Urine Bilirubin Negative (Negative) Urine Urobilinogen 2 mg/dL (Negative) H Urine Leukocyte Esterase 2+ /uL (Negative) Urine RBC 485 /hpf (0 - 4) Urine Microscopic WBC 21 /HPF (0-5) H Urine Squamous Epithelial Cells Few /hpf (<5) Urine Bacteria None seen /hpf (None Seen) Urine Mucus Few (None Seen) Urine Glucose Normal mg/dL (Normal) Microbiology Microbiology Date/Time Source Procedure Growth Status 03/07/25 14:05 Blood Blood Culture - Preliminary NO GROWTH AFTER 24 HOURS OF INCUBATION. Resulted 03/06/25 19:50 Voided Urine Urine Culture - Final Complete Labs and/or images reviewed: Labs reviewed by me, Image(s) reviewed by me Assessment/Plan Assessment/Plan Sepsis secondary to complicated UTI: Blood cultures negative, urine cultures mixed, continue Rocephin Hematuria: CT abdomen pelvis without contrast is negative for any acute pathology, urology consult for Dr. 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 Gibson patient does not need any pacemaker interrogation Transgender female on hormone therapy Time spent 60 minutes Advanced care planning time 20 minutes Patient is full code RN Alina at bed side. Plan discussed with: Patient Date of Service: Mar 09, 2025 Billing Provider: ORLANDO BOUCHER MD Common Visit Codes: [id number] INP/OBS CARE(HIGH) ORLANDO BOUCHER MD Mar 09, 2025 10:54
--- NOTE | 2025-03-09 11:11 | DVHPN2 ---
Progress Note - Dictate Date Seen: Mar 09, 2025 Medical Necessity Reason Pt with a Central, PICC or Fol: No vital signs Vital Sign Date Time Temp Pulse Resp B/P (MAP) Pulse Ox O2 Delivery O2 Flow Rate FiO2 03/09/25 10:21 69 03/09/25 10:20 131/68 03/09/25 09:00 98.2 18 97 98.2 03/09/25 08:00 Room Air* 0 21 Total Intake and Output 03/08/25 03/08/25 03/09/25 15:00 23:00 07:00 Intake Total 50 ml 550 ml 500 ml Balance 50 ml 550 ml 500 ml medications Current Medications Medications Dose Ordered Sig/Kerry Route Start Time Stop Time Status Last Admin Dose Admin Ceftriaxone Sodium 50 ml @ 100 mls/hr DAILY@09 IV 03/07/25 09:00 03/08/25 09:21 100 MLS/HR Metoprolol Tartrate 25 mg BID PO 03/06/25 22:00 Hold Furosemide 20 mg DAILY PO 03/07/25 10:00 03/09/25 10:20 20 MG Estradiol 4 mg DAILY PO 03/07/25 10:00 03/09/25 10:20 4 MG Digoxin 0.25 mg DAILY PO 03/07/25 10:00 03/09/25 10:21 0.25 MG Clopidogrel Bisulfate 75 mg DAILY PO 03/07/25 10:00 03/09/25 10:20 75 MG Aspirin 81 mg DAILY PO 03/07/25 10:00 03/09/25 10:20 81 MG Acetaminophen/ Hydrocodone Bitart 1 tab Q4HP PRN PO 03/06/25 20:15 Ondansetron HCl 4 mg Q4HP PRN IV 03/06/25 20:15 Acetaminophen 650 mg Q6HP PRN PO 03/06/25 20:15 03/08/25 16:20 650 MG laboratory and microbiology Laboratory Tests 03/09/25 06:15 Test 03/09/25 06:15 Range/Units Serum Glucose 118 H 74-106 mg/dL Assessment/Plan Patient seen and examined at the bedside within Telemetry. Vital signs stable. Chart reviewed. Patient is in sinus rhythm, denies chest pain, shortness of breath or palpitations. Patient's medications, allergies, past medical, surgical, social and family histories were obtained and reviewed as appropriate. Assessment: The patient is a 74-year-old transgender female who initially presented to the emergency department on 03/06/2025 with hematuria and dizziness. She reported that these symptoms began two to three hours prior to arrival. She described experiencing similar symptoms in the past, during which she was admitted for urosepsis at [facility]. On the day of presentation, she awoke feeling feverish, dizzy, and mentally foggy, which she feared could indicate another urinary tract infection. She denies chest pain, shortness of breath, or palpitations at present. Laboratory evaluation revealed a hemoglobin of 13.1 g/dL, potassium 4.4 mmol/L, creatinine 0.96 mg/dL, and GFR 62 mL/min/1.73 m. Urinalysis showed the presence of blood, leukocyte esterase, and trace protein. CT of the abdomen and pelvis demonstrated no acute abdominal or pelvic process, no hydronephrosis or hydroureter lithiasis, and a decompressed bladder. There was minimal asymmetric perinephric edema, greater on the right than the left, which may reflect acute kidney injury. Her past medical history is significant for atrial fibrillation status post Watchman device (not on anticoagulation), coronary artery disease on DAPT, chronic kidney disease, pulmonary hypertension, and sick sinus syndrome with a [employer] Rupesh pacemaker. Cardiology was consulted to manage cardiac aspects of care. She is actually transgender male to female Outpatient echocardiogram (08/2024) shows an ejection fraction of 59%. Left heart catheterization and coronary angiogram (11/2024) revealed two-vessel coronary artery disease with a mid left anterior descending artery focal 85% lesion treated with percutaneous coronary intervention and drug-eluting stent deployment. The first obtuse marginal branch was noted to have a small caliber vessel with a 90% ostial lesion to be managed medically. The first diagonal branch had a 90% ostial lesion also to be managed medically. Left ventricular ejection fraction was measured at 50% with a left ventricular end-diastolic pressure of 14 mmHg. Patient was recommended to remain on dual antiplatelet therapy for at least one year Paroxysmal atrial fibrillation Coronary artery disease Chronic kidney disease Urinary tract infection Pacemaker (ST RUPESH) Hematuria Dizziness Cardiology Recommendations: It is recommended to proceed with interrogation of the patients pacemaker to evaluate for any arrhythmias or device-related issues that could explain her dizziness. Blood pressure and orthostatic vital signs should be obtained to assess for hemodynamic changes that may contribute to her symptoms. Continued monitoring of renal function is advised given her history of chronic kidney disease and the mild perinephric edema noted on imaging. Request for device interrogation (St. Rupesh) (last time interrogated in January 2025). Interrogation can be performed as outpatient also. Proceed with close rate and rhythm surveillance Proceed with close hemodynamic surveillance Proceed with optimized blood pressure control Transfuse to sustain HGB levels above 7.0 Sustain Magnesium level greater than 2.0 Sustain Potassium level greater than 4.0 Follow up renal function and electrolytes Continue Dual Antiplatelet therapy Management in Telemetry Management of UTI per Primary Team Will proceed to follow from a cardiac perspective Further recommendations per clinical progression All available labs, EKGs, and images were personally reviewed Plan of care discussed with and agreed upon by patient/family/Primary RN. Prognosis: Guarded Thank you for allowing me to participate in the care of this patient. Further recommendations will depend on clinical progression, hospitalist, and other consultants. Will continue to follow with Primary. If you have any questions, please do not hesitate to contact me. A total of 55 minutes was spent reviewing the patient record, examining the patient, making a diagnostic and therapeutic plan, discussing this plan with medical personnel, following up on diagnostic studies and following the patient for clinical stability excluding any and all procedures. At least 50% of this time was spent in direct, [id number] contact. Dietary Evaluation Review Recommendations by RD: Dietary education by RD Comments: 1) Add 45g CCHO restriction to cardiac diet 2) Collect HbA1c 3) Refer to outpatient RD/CDCES for weight management 4) Follow-up with cardiology and urology 5) Continue to monitor I&O, labs, and skin integrity Expected Outcomes/Goals: 1) appetite and labs to improve 2) gradual wt loss 3) f/u in 3-5 days Plan discussed with: Patient, Other (nurse) ROSINA TEIXEIRA MD Mar 09, 2025 11:11
[2025-03-09] MEDS: HYDROcodone-ACET 5/325MG TAB PO PRN (13:48)
[2025-03-10 01:00] VITALS: BP 121/51; PULSE 63; RESP 17; TEMP 98.3; O2SAT 95
[2025-03-10 05:00] VITALS: BP 119/70; PULSE 66; RESP 18; TEMP 97.9; O2SAT 93
[2025-03-10 08:00] VITALS: PULSE 60
--- NOTE | 2025-03-10 08:15 | DVHPN2 ---
Progress Note - Dictate Date Seen: Mar 10, 2025 Medical Necessity Reason Pt with a Central, PICC or Fol: No vital signs Vital Sign Date Time Temp Pulse Resp B/P (MAP) Pulse Ox O2 Delivery O2 Flow Rate FiO2 03/10/25 05:00 97.9 66 18 119/70 (86) 93 97.9 03/09/25 20:00 Room Air* 0 21 Total Intake and Output 03/09/25 03/09/25 03/10/25 15:00 23:00 07:00 Intake Total 675 ml 900 ml 280 ml Balance 675 ml 900 ml 280 ml medications Current Medications Medications Dose Ordered Sig/Kerry Route Start Time Stop Time Status Last Admin Dose Admin Ceftriaxone Sodium 50 ml @ 100 mls/hr DAILY@09 IV 03/07/25 09:00 03/09/25 13:31 100 MLS/HR Metoprolol Tartrate 25 mg BID PO 03/06/25 22:00 Hold Furosemide 20 mg DAILY PO 03/07/25 10:00 03/09/25 10:20 20 MG Estradiol 4 mg DAILY PO 03/07/25 10:00 03/09/25 10:20 4 MG Digoxin 0.25 mg DAILY PO 03/07/25 10:00 03/09/25 10:21 0.25 MG Clopidogrel Bisulfate 75 mg DAILY PO 03/07/25 10:00 03/09/25 10:20 75 MG Aspirin 81 mg DAILY PO 03/07/25 10:00 03/09/25 10:20 81 MG Acetaminophen/ Hydrocodone Bitart 1 tab Q4HP PRN PO 03/06/25 20:15 03/09/25 13:48 1 TAB Ondansetron HCl 4 mg Q4HP PRN IV 03/06/25 20:15 Acetaminophen 650 mg Q6HP PRN PO 03/06/25 20:15 03/08/25 16:20 650 MG laboratory and microbiology Laboratory Tests 03/09/25 06:15 Test 03/09/25 06:15 Range/Units Serum Glucose 118 H 74-106 mg/dL Assessment/Plan Patient seen and examined at the bedside within Telemetry. Vital signs stable. Chart reviewed. Patient is in sinus rhythm, denies chest pain, shortness of breath or palpitations. Patient's medications, allergies, past medical, surgical, social and family histories were obtained and reviewed as appropriate. Assessment: The patient is a 74-year-old transgender female who initially presented to the emergency department on 03/06/2025 with hematuria and dizziness. She reported that these symptoms began two to three hours prior to arrival. She described experiencing similar symptoms in the past, during which she was admitted for urosepsis at [facility]. On the day of presentation, she awoke feeling feverish, dizzy, and mentally foggy, which she feared could indicate another urinary tract infection. She denies chest pain, shortness of breath, or palpitations at present. Laboratory evaluation revealed a hemoglobin of 13.1 g/dL, potassium 4.4 mmol/L, creatinine 0.96 mg/dL, and GFR 62 mL/min/1.73 m. Urinalysis showed the presence of blood, leukocyte esterase, and trace protein. CT of the abdomen and pelvis demonstrated no acute abdominal or pelvic process, no hydronephrosis or hydroureter lithiasis, and a decompressed bladder. There was minimal asymmetric perinephric edema, greater on the right than the left, which may reflect acute kidney injury. Her past medical history is significant for atrial fibrillation status post Watchman device (not on anticoagulation), coronary artery disease on DAPT, chronic kidney disease, pulmonary hypertension, and sick sinus syndrome with a [employer] Rupesh pacemaker. Cardiology was consulted to manage cardiac aspects of care. She is actually transgender male to female Outpatient echocardiogram (08/2024) shows an ejection fraction of 59%. Left heart catheterization and coronary angiogram (11/2024) revealed two-vessel coronary artery disease with a mid left anterior descending artery focal 85% lesion treated with percutaneous coronary intervention and drug-eluting stent deployment. The first obtuse marginal branch was noted to have a small caliber vessel with a 90% ostial lesion to be managed medically. The first diagonal branch had a 90% ostial lesion also to be managed medically. Left ventricular ejection fraction was measured at 50% with a left ventricular end-diastolic pressure of 14 mmHg. Patient was recommended to remain on dual antiplatelet therapy for at least one year Paroxysmal atrial fibrillation Coronary artery disease Chronic kidney disease Urinary tract infection Pacemaker (ST RUPESH) Hematuria Dizziness Cardiology Recommendations: It is recommended to proceed with interrogation of the patients pacemaker to evaluate for any arrhythmias or device-related issues that could explain her dizziness. Blood pressure and orthostatic vital signs should be obtained to assess for hemodynamic changes that may contribute to her symptoms. Continued monitoring of renal function is advised given her history of chronic kidney disease and the mild perinephric edema noted on imaging. Request for device interrogation (St. Rupesh) (last time interrogated in January 2025). Interrogation can be performed as outpatient also. Proceed with close rate and rhythm surveillance Proceed with close hemodynamic surveillance Proceed with optimized blood pressure control Transfuse to sustain HGB levels above 7.0 Sustain Magnesium level greater than 2.0 Sustain Potassium level greater than 4.0 Follow up renal function and electrolytes Continue Dual Antiplatelet therapy Cardiac tena, is stable and can be followed as outpatient Management in Telemetry Management of UTI per Primary Team Will proceed to follow from a cardiac perspective Further recommendations per clinical progression All available labs, EKGs, and images were personally reviewed Plan of care discussed with and agreed upon by patient/family/Primary RN. Thank you for allowing me to participate in the care of this patient. Further recommendations will depend on clinical progression, hospitalist, and other consultants. Will continue to follow with Primary. If you have any questions, please do not hesitate to contact me. A total of 55 minutes was spent reviewing the patient record, examining the patient, making a diagnostic and therapeutic plan, discussing this plan with medical personnel, following up on diagnostic studies and following the patient for clinical stability excluding any and all procedures. At least 50% of this time was spent in direct, [id number] contact. Dietary Evaluation Review Recommendations by RD: Dietary education by RD Comments: 1) Add 45g CCHO restriction to cardiac diet 2) Collect HbA1c 3) Refer to outpatient RD/CDCES for weight management 4) Follow-up with cardiology and urology 5) Continue to monitor I&O, labs, and skin integrity Expected Outcomes/Goals: 1) appetite and labs to improve 2) gradual wt loss 3) f/u in 3-5 days Plan discussed with: Patient, Other (nurse) ROSINA TEIXEIRA MD Mar 10, 2025 08:15
[2025-03-10 09:00] VITALS: BP 158/60; PULSE 60; RESP 20; TEMP 97.6; O2SAT 96
--- NOTE | 2025-03-10 10:32 | DVHPN2 ---
Reviewed: Care Plan, H&P, Labs, Medications, Previous Orders, Radiology Changes from previous H/P or p: No Changes Objective Vitals Vital Signs Date Time Temp Pulse Resp B/P (MAP) Pulse Ox O2 Delivery O2 Flow Rate FiO2 03/10/25 09:50 68 03/10/25 09:00 97.6 20 158/60 (92) 96 97.6 03/09/25 20:00 Room Air* 0 21 Intake/Output Intake and Output 03/10/25 07:00 Intake Total 1855 ml Balance 1855 ml Intake Oral 1855 ml # Voids 9 Medications Current Medications Medications Dose Ordered Sig/Kerry Route Start Time Stop Time Status Last Admin Dose Admin Ceftriaxone Sodium 50 ml @ 100 mls/hr DAILY@09 IV 03/07/25 09:00 03/10/25 09:00 100 MLS/HR Metoprolol Tartrate 25 mg BID PO 03/06/25 22:00 Hold Furosemide 20 mg DAILY PO 03/07/25 10:00 03/09/25 10:20 20 MG Estradiol 4 mg DAILY PO 03/07/25 10:00 03/09/25 10:20 4 MG Digoxin 0.25 mg DAILY PO 03/07/25 10:00 03/10/25 09:50 0.25 MG Clopidogrel Bisulfate 75 mg DAILY PO 03/07/25 10:00 03/10/25 09:50 75 MG Aspirin 81 mg DAILY PO 03/07/25 10:00 03/10/25 09:51 81 MG Acetaminophen/ Hydrocodone Bitart 1 tab Q4HP PRN PO 03/06/25 20:15 03/09/25 13:48 1 TAB Ondansetron HCl 4 mg Q4HP PRN IV 03/06/25 20:15 Acetaminophen 650 mg Q6HP PRN PO 03/06/25 20:15 03/08/25 16:20 650 MG Laboratory Results Laboratory Tests 03/09/25 06:15 Urinalysis Test 03/06/25 19:50 Urine Color Yellow (Yellow) Urine Clarity Clear (Clear) Urine pH 5.5 (5.0-9.0) Urine Specific [place] 1.024 (1.001-1.035) Urine Protein Trace (Negative) H Urine Ketones Negative (Negative) Urine Blood 3+ /uL (Negative) H Urine Nitrite Negative (Negative) Urine Bilirubin Negative (Negative) Urine Urobilinogen 2 mg/dL (Negative) H Urine Leukocyte Esterase 2+ /uL (Negative) Urine RBC 485 /hpf (0 - 4) Urine Microscopic WBC 21 /HPF (0-5) H Urine Squamous Epithelial Cells Few /hpf (<5) Urine Bacteria None seen /hpf (None Seen) Urine Mucus Few (None Seen) Urine Glucose Normal mg/dL (Normal) Microbiology Microbiology Date/Time Source Procedure Growth Status 03/07/25 14:05 Blood Blood Culture - Preliminary NO GROWTH AFTER 48 HOURS OF INCUBATION. Resulted 03/06/25 19:50 Voided Urine Urine Culture - Final Complete Labs and/or images reviewed: Labs reviewed by me, Image(s) reviewed by me Assessment/Plan Assessment/Plan Sepsis secondary to complicated UTI: Blood cultures negative, urine cultures mixed, continue Rocephin Hematuria: CT abdomen pelvis without contrast is negative for any acute pathology, urology consult for Dr. Whitman appreciated Diabetes type 2 Hypertension: Metoprolol History of [place] status post stents Possible congestive heart failure consult for patient's residential care facility manager Dr. Mcginnis appreciated History of pacemaker, per Dr. Gibson patient does not need any pacemaker interrogation Transgender female on hormone therapy Time spent 50 minutes Advanced care planning time 20 minutes Patient is full code SHANI Dunham bedside Patient feels better and willing to go home Plan discussed with: Patient Date of Service: Mar 10, 2025 Billing Provider: ORLANDO BOUCHER MD Common Visit Codes: [id number] INP/OBS CARE(HIGH) ORLANDO BOUCHER MD Mar 10, 2025 10:32
[2025-03-10] MEDS ORDERED: CEPH250C PO (10:43)
--- NOTE | 2025-03-10 10:48 | DVHDS2 ---
Discharge Summary Date of Admission Mar 06, 2025 at 21:19 Date of Discharge: Mar 10, 2025 Admitting Diagnosis Blood in the urine and chills Wounds: None Labs/Diagnostic Data: Laboratory Results Test 03/09/25 06:15 03/08/25 05:58 03/06/25 19:50 White Blood Count 4.1 10^3/uL (4.4-10.8) Red Blood Count 4.38 10^6/uL (4.0-5.20) Hemoglobin 12.9 g/dL (12.2-16.2) Hematocrit 38.2 % (36.0-46.0) Mean Corpuscular Volume 87.2 fL (80.0-100.0) Mean Corpuscular Hemoglobin 29.5 pg (28.0-32.0) Mean Corpuscular Hemoglobin Concent 33.9 g/dL (32.0-36.0) Red Cell Distribution Width 14.5 % (11.8-14.3) Platelet Count 162 10^3/uL (140-450) Mean Platelet Volume 8.1 fL (6.9-10.8) Neutrophils (%) (Auto) 59.5 % (37.0-80.0) Lymphocytes (%) (Auto) 20.9 % (10.0-50.0) Monocytes (%) (Auto) 15.3 % (0.0-12.0) Eosinophils (%) (Auto) 3.5 % (0.0-7.0) Basophils (%) (Auto) 0.8 % (0.0-2.0) Neutrophils # (Auto) 2.4 10 ^3/uL (1.6-8.6) Lymphocytes # (Auto) 0.8 10 ^3/uL (0.4-5.4) Monocytes # (Auto) 0.6 10 ^3/uL (0-1.3) Eosinophils # (Auto) 0.1 10 ^3/uL (0-0.8) Basophils # (Auto) 0 10 ^3/uL (0-0.2) Nucleated Red Blood Cells 0.3 % Sodium Level 136 mmol/L (136-145) Potassium Level 4.1 mmol/L (3.5-5.1) Chloride Level 102 mmol/L (98-107) Carbon Dioxide Level 26 mmol/L (20-31) Anion Gap 8 (5-15) Blood Urea Nitrogen 8 mg/dL (9-23) Creatinine 0.91 mg/dL (0.550-1.02) Glomerular Filtration Rate Calc 67 mL/min (>90) BUN/Creatinine Ratio 8.8 (10.0-20.0) Serum Glucose 118 mg/dL (74-106) Calcium Level 8.1 mg/dL (8.7-10.4) Total Bilirubin 0.6 mg/dL (0.2-1.0) Aspartate Amino Transferase (AST) 17 U/L (13-40) Alanine Aminotransferase (ALT) 12 U/L (7-40) Alkaline Phosphatase 31 U/L (46-116) Total Protein 6.2 g/dL (5.7-8.2) Albumin 3.6 g/dL (3.2-4.8) POC Glucose 171 mg/dl (70-106) Urine Color Yellow (Yellow) Urine Clarity Clear (Clear) Urine pH 5.5 (5.0-9.0) Urine Specific [place] 1.024 (1.001-1.035) Urine Protein Trace (Negative) Urine Ketones Negative (Negative) Urine Blood 3+ /uL (Negative) Urine Nitrite Negative (Negative) Urine Bilirubin Negative (Negative) Urine Urobilinogen 2 mg/dL (Negative) Urine Leukocyte Esterase 2+ /uL (Negative) Urine RBC 485 /hpf (0 - 4) Urine Microscopic WBC 21 /HPF (0-5) Urine Squamous Epithelial Cells Few /hpf (<5) Urine Bacteria None seen /hpf (None Seen) Urine Mucus Few (None Seen) Urine Glucose Normal mg/dL (Normal) Other Laboratory Tests 03/09/25 06:15 Brief Hx & Hospital Course: 74-year-old transgender female on hormone therapy with a history of recurrent urinary tract infections hypertension Diabetes history of [place] status post stents history of pacemaker came in complaining of hematuria dysuria and frequency found to have urinary tract infection treated with Rocephin blood cultures negative urine cultures were mixed CT abdomen pelvis without contrast negative for any acute pathology seen by Urology Dr. Whitman. Seen by service delivery director Dr. Gibson advised no pacemaker interrogation was needed. Discharged home on Keflex for UTI. He feels better with a stable vital signs. He was advised to follow up with his primary Dr for repeat urine cultures in 10 days SHANI Dunham at bedside at the time of discharge. Consults/Reason for consult Cardiology Dr. Gibson Neurology Dr. Whitman Operations or Procedures CT abdomen pelvis without contrast Condition at Discharge: Fair Final Diagnosis/Problems List Sepsis secondary to complicated UTI: Blood cultures negative, urine cultures mixed, continue Rocephin Hematuria: CT abdomen pelvis without contrast is negative for any acute pathology, urology consult for Dr. Whitman appreciated Diabetes type 2 Hypertension: Metoprolol History of [place] status post stents Possible congestive heart failure consult for patient's service delivery director Dr. Mcginnis appreciated History of pacemaker, per Dr. Gibson patient does not need any pacemaker interrogation Transgender female on hormone therapy Discharge Disposition: Home Discharge Instruct/Medications Diet: Cardiac 2g Na,low cholest Activity: Light activity Follow Up/Referral: Follow up with your primary Dr Dr Mcginnis Resume all previous home meds You are advised to have repeat urine cultures in [address] your primary Dr Medications: Keflex 500 mg p.o. q.i.d. 28 Transmitted to pharmacy Scheduled Cephalexin (Keflex Capsule), 1 CAP PO QID Cholecalciferol (Vitamin D), 5,000 UNIT PO DAILY, (Reported) Clopidogrel Bisulfate (Plavix), 75 MG PO DAILY, (Reported) Digoxin (Digoxin), 250 MCG PO DAILY, (Reported) Escitalopram Oxalate (Lexapro), 15 MG PO DAILY, (Reported) Furosemide (Furosemide), 1 TAB PO Sunday Fr, (Reported) Glyburide (Glyburide), 5 MG PO DAILY, (Reported) Medroxyprogesterone Acetate (Medroxyprogesterone Aceta), 10 MG PO DAILY, (Reported) Multiple Vitamin (Multi Vitamin), 1 TAB PO DAILY, (Reported) Nebivolol Hcl (Bystolic), 1.5 TAB PO DAILY, (Reported) Miscellaneous Medications Doxepin HCl (Doxepin Hydrochloride), 10 MG PO, (Reported) Magnesium Oxide (Magnesium Oxide), Unknown Dose, (Reported) Discontinued Medications Escitalopram Oxalate (Lexapro), 1 TAB PO DAILY, (Reported) Estradiol (Estradiol), 4 MG PO DAILY, (Reported) Furosemide (Furosemide), 20 MG PO DAILY, (Reported) Magnesium Oxide (Magnesium Oxide), 400 MG OR DAILY, (Reported) 35 (Time taken for discharge summary 35 minutes) Discharge Statement: "Patient was advised to return to the ER or call 911 if any headaches, dizziness, shortness of breath, chest pain, abdominal pain, bleeding, fevers, or worsening of medical condition. Patient was counseled about treatment plan, medications, possible side effects, patientverbalized understanding. All questions were answered to the best of my ability. This discharge took greater then 30 minutes in planning, reviewing documentation, counseling the patient, and discussing with other team members." ASSESSMENT ASSESSMENT Hospital Course Improved Assessment Sepsis secondary to complicated UTI: Blood cultures negative, urine cultures mixed, continue Rocephin Hematuria: CT abdomen pelvis without contrast is negative for any acute pathology, urology consult for Dr. Whitman appreciated Diabetes type 2 Hypertension: Metoprolol History of [place] status post stents Possible congestive heart failure consult for patient's service delivery director Dr. Mcginnis appreciated History of pacemaker, per Dr. Gibson patient does not need any pacemaker interrogation Transgender female on hormone therapy Date of Service: Mar 10, 2025 Billing Provider: ORLANDO BOUCHER MD Common Visit Codes: 69256-CHO/OBS DISCH DAY >30min ORLANDO BOUCHER MD Mar 10, 2025 10:48
== END 2025-03-10 13:00 | disposition home or self-care (01) | DRG 872 ==
LOC: ER 15:53 → OVERFLOW 21:19 → CENTRAL 23:41 → TELE-CENTR 03-08 07:19
PROVIDERS: ADMIT Family Medicine; ATTEND Family Medicine
DX: A41.9 Sepsis, unspecified organism (principal); N39.0 Urinary tract infection, site not specified; I13.0 Hypertensive heart and chronic kidney disease with heart failure and stage 1 through stage 4 chronic kidney disease, or unspecified chronic kidney disease; I50.9 Heart failure, unspecified; E11.22 Type 2 diabetes mellitus with diabetic chronic kidney disease; I48.0 Paroxysmal atrial fibrillation; N18.9 Chronic kidney disease, unspecified; I25.10 Atherosclerotic heart disease of native coronary artery without angina pectoris; F64.0 Transsexualism; Z79.899 Other long term (current) drug therapy; Z95.0 Presence of cardiac pacemaker; Z79.02 Long term (current) use of antithrombotics/antiplatelets; Z79.84 Long term (current) use of oral hypoglycemic drugs; Z82.0 Family history of epilepsy and other diseases of the nervous system; Z82.49 Family history of ischemic heart disease and other diseases of the circulatory system; Z80.0 Family history of malignant neoplasm of digestive organs; Z95.5 Presence of coronary angioplasty implant and graft; Z87.891 Personal history of nicotine dependence; I25.2 Old myocardial infarction
CPT/HCPCS: 36415; 74176; 80048; 80053; 81001; 82962; 85025; 87040; 87086; 96360; G0378; J3490

== ENCOUNTER 2025-05-19 11:05 | Inpatient (IN) | payer MEDICARE ==
[~2025-05-19] VITALS: Ht 185.4 cm; Wt 155.5 kg
[~2025-05-19 11:05] MED LIST changes: +CEPH250C PO; +CLOP75TA28 PO; +DOXE10CA34 PO; -ESTR1TAB6 PO; +MAGN400T40; -MAGN400T40 OR
--- NOTE | 2025-05-19 12:08 | ED.PDOC ---
History of Present Illness HPI Comments 74 y/o biological M to F, with PMHx of DM and HTN presents to the ED for CC of flu-like symptoms. Patient states, she has been experiencing flu-like symptoms including: cough, nasal congestion, fever, and body aches x1day. Upon arrival to the ED, patient is stating at 94% on R.A. Patient denies shortness of breath, palpitations, or chest pain. No other symptoms or modifying factors are present at this time. Chief Complaint: Flu like Time Seen by MD: 13:00 Reviewed Notes: Nurses Notes, Medications, Allergies Allergies: Coded Allergies: Griseofulvin (Verified Allergy, Unknown, 05/19/25) Levofloxacin (Verified Allergy, Unknown, 05/19/25) Montelukast (Verified Allergy, Unknown, 05/19/25) Metoprolol (Verified Adverse Reaction, Unknown, 03/07/25) States that she had reaction to Metoprolol before, forgot what reaction was. Uncoded Allergies: IVP dye, Levaquin, Griseofulvin, Montelukast (Allergy, Severe, 11/14/24) IV CONTRAST (Allergy, Unknown, 05/19/25) Home Meds Reported Medications Estradiol (Estradiol) 2 Mg Tab, 1 TAB PO BID 05/19/25 Escitalopram Oxalate (Lexapro) 20 Mg Tab, 15 MG PO DAILY, TAB 03/07/25 Magnesium Oxide (MAGNESIUM OXIDE) 400 Mg Tab, TAB 03/07/25 Clopidogrel Bisulfate (Plavix) 75 Mg Tab, 75 MG PO DAILY, TAB 03/07/25 Doxepin HCl (Doxepin Hydrochloride) 10 Mg Cap, 10 MG PO, CAP 03/07/25 Furosemide (Furosemide) 20 Mg Tab, 1 TAB PO Sunday Fr, #90 TAB 1 Refill 03/07/25 Medroxyprogesterone Acetate (Medroxyprogesterone Aceta) 10 Mg Tab, 10 MG PO DAILY, MG 11/14/24 Cholecalciferol (Vitamin D) 5,000 Unit Cap, 5000 UNIT PO DAILY, CAP 11/14/24 Multiple Vitamin (Multi Vitamin) 1 Tab Tab, 1 TAB PO DAILY, TAB 11/14/24 Nebivolol Hcl (Bystolic) 10 Mg Tab, 1.5 TAB PO DAILY, #90 TAB 1 Refill 11/14/24 Digoxin (Digoxin) 250 Mcg Tab, 250 MCG PO DAILY, TAB 11/14/24 Glyburide (Glyburide) 5 Mg Tab, 5 MG PO DAILY for 30 Days, MG 11/14/24 Discontinued Scripts Cephalexin (KEFLEX CAPSULE) 250 Mg Cp, 1 CAP PO QID, #28 CAP Prov:ORLANDO BOUCHER MD 03/10/25 Information Source: Patient Mode of Arrival: Ambulatory Severity: Moderate Timing: Hours Duration: Since onset Prehospital treatment: None Past Medical History PAST MEDICAL HISTORY: DM, HTN, UTI'S Surgical History: Pacemaker, PTCA PAD MAKING MACHINE OPERATOR History: No Pertinent PAD MAKING MACHINE OPERATOR History Family History Family History: Reviewed,noncontributory to illness Social History Smoker: Non-Smoker Alcohol: Denies ETOH Use Drugs: Denies Drug Use Lives In: Home Constitutional: reports: fever; denies: chills, diaphoresis, fatigue, malaise, sweats, weakness, others EENTM: reports: nose congestion; denies: blurred vision, double vision, ear bleeding, ear discharge, ear drainage, ear pain, ear ringing, eye pain, eye redness, hearing loss, mouth pain, mouth swelling, nasal discharge, nose bleeding, nose pain, photophobia, tearing, throat pain, throat swelling, voice changes, others Respiratory: reports: cough; denies: hemoptysis, orthopnea, SOB at rest, shortness of breath, SOB with excertion, stridor, wheezing, others Cardiovascular: denies: chest pain, dizzy spells, diaphoresis, Dyspnea on exertion, edema, irregular heart beat, left arm pain, lightheadedness, palpitations, PND, syncope, others Gastrointestinal: denies: abdomen distended, abdominal pain, blood streaked bowels, constipated, diarrhea, dysphagia, difficulty swallowing, hematemesis, melena, nausea, poor appetite, poor fluid intake, rectal bleeding, rectal pain, vomiting, others Genitourinary: denies: abnormal vagina bleeding, burning, dyspareunia, dysuria, flank pain, frequency, hematuria, incontinence, pain, , vagina discharge, urgency, others Neurological: denies: dizziness, fainting, headache, left sided numbness, left sided weakness, numbness, paresthesia, pre-existing deficit, right sided numbness, right sided weakness, seizure, speech problems, tingling, tremors, w eakness, others Musculoskeletal: reports: others (BODY-ACHES); denies: back pain, gout, joint pain, joint swelling, muscle pain, muscle stiffness, neck pain Integumetry: denies: bruises, change in color, change in hair/nails, dryness, laceration, lesions, lumps, rash, wounds, others Allergic/Immunocompromised: denies: Difficulty Healing, Frequent Infections, Hives, Itching, others Hematologic/Lymphatic: denies: anemia, blood clots, easy bleeding, easy bruising, swollen glands, others Endocrine: denies: excessive hunger, excessive sweating, excessive thirst, excessive urination, flushing, intolerance to cold, intolerance to heat, unexplained weight gain, unexplained weight loss, others Psychiatric: denies: anxiety, bipolar disorder, depression, hopeless, panic disorder, schizophrenia, sleepless, suicidal, others All Other Systems: Reviewed and Negative Physical Exam General Appearance: No Apparent Distress, Normal, Other (transgender MTF) HEENT: Normal ENT Inspection, Pharynx Normal Neck: Full Range of Motion, Non-Tender, Normal, Normal Inspection Respiratory: Chest Non-Tender, Lungs Clear, No Accessory Muscle Use, No Respiratory Distress, Other (scattered rhonchi) Cardiovascular: No Edema, No Murmur, No Gallop, Normal Peripheral Pulses, Regular Rate/Rhythm Breast Exam: Deferred Gastrointestinal: No Organomegaly, Non Tender, No Pulsatile Mass, Normal Bowel Sounds, Soft Genitalia: Deferred Pelvic: Deferred Rectal: Deferred Extremities: No calf tenderness, Normal capillary refill, Normal inspection, Normal range of motion, Non-tender, No pedal edema Musculoskeletal : Apperance: Normal Neurologic: Alert, rifle case repairer II-XII nml as Tested, No Motor Deficits, Normal Affect, Normal Mood, No Sensory Deficits Cerebellar Function: Normal Reflexes: Normal Skin: Dry, Normal Color, Warm Lymphatic: No Adenopathy Was a procedure done? Was a procedure done?: No Differential Dx Considerations may include: COVID-19, INFLUENZA, PNEUMONIA, URI, SINUITIS, VIRAL SYNDROME X-Ray, Labs, Meds, VS Vital Signs Date Time Temp Pulse Resp B/P (MAP) Pulse Ox O2 Delivery O2 Flow Rate FiO2 05/19/25 15:14 100.8 81 18 112/70 (84) 93 100.8 05/19/25 11:10 98.4 81 22 159/68 94 98.4 Lab Test 05/19/25 16:39 05/19/25 14:33 05/19/25 13:17 05/19/25 13:12 Range/Units Troponin I High Sensitivity 7 8 7 </=34 ng/L White Blood Count 12.7 H 4.4-10.8 10^3/uL Red Blood Count 4.31 4.0-5.20 10^6/uL Hemoglobin 12.6 12.2-16.2 g/dL Hematocrit 38.4 36.0-46.0 % Mean Corpuscular Volume 89.0 80.0-100.0 fL Mean Corpuscular Hemoglobin 29.3 28.0-32.0 pg Mean Corpuscular Hemoglobin Concent 32.9 32.0-36.0 g/dL Red Cell Distribution Width 15.4 H 11.8-14.3 % Platelet Count 191 140-450 10^3/uL Mean Platelet Volume 8.1 6.9-10.8 fL Neutrophils (%) (Auto) 84.0 H 37.0-80.0 % Lymphocytes (%) (Auto) 6.2 L 10.0-50.0 % Monocytes (%) (Auto) 9.5 0.0-12.0 % Eosinophils (%) (Auto) 0.1 0.0-7.0 % Basophils (%) (Auto) 0.2 0.0-2.0 % Neutrophils # (Auto) 10.6 H 1.6-8.6 10 ^3/uL Lymphocytes # (Auto) 0.8 0.4-5.4 10 ^3/uL Monocytes # (Auto) 1.2 0-1.3 10 ^3/uL Eosinophils # (Auto) 0 0-0.8 10 ^3/uL Basophils # (Auto) 0 0-0.2 10 ^3/uL Nucleated Red Blood Cells 0.1 % Sodium Level 136 136-145 mmol/L Potassium Level 4.6 3.5-5.1 mmol/L Chloride Level 99 98-107 mmol/L Carbon Dioxide Level 26 20-31 mmol/L Anion Gap 11 5-15 Blood Urea Nitrogen 14 9-23 mg/dL Creatinine 1.05 H 0.550-1.02 mg/dL Glomerular Filtration Rate Calc 56 >90 mL/min BUN/Creatinine Ratio 13.3 10.0-20.0 Serum Glucose 163 H 74-106 mg/dL Calcium Level 8.7 8.7-10.4 mg/dL Magnesium Level 2.1 1.6-2.6 mg/dL Lipase 28 12-53 U/L Thyroid Stimulating Hormone (TSH) 0.99 0.55-4.78 uIU/mL Lactic Acid Level 1.3 0.4-2.0 mmol/L B-Type Natriuretic Peptide 277.05 0-100 pg/mL Test 05/19/25 13:07 Range/Units Urine Color Yellow Yellow Urine Clarity Clear Clear Urine pH 5.5 5.0-9.0 Urine Specific [place] 1.020 1.001-1.035 Urine Protein Trace H Negative Urine Ketones 1+ H Negative Urine Blood Negative Negative /uL Urine Nitrite Negative Negative Urine Bilirubin Negative Negative Urine Urobilinogen Normal Negative mg/dL Urine Leukocyte Esterase Negative Negative /uL Urine RBC 2 0 - 4 /hpf Urine Microscopic WBC 3 0-5 /HPF Urine Squamous Epithelial Cells Few <5 /hpf Urine Bacteria None seen None Seen /hpf Urine Mucus Few None Seen Urine Glucose Normal Normal mg/dL Influenza Type A Antigen Negative Negative Influenza Type B Antigen Negative Negative SARS-CoV-2 Antigen (Rapid) Positive NEGATIVE [place] [id number] Ph: [phone] DIAGNOSTIC IMAGING Diagnostic Imaging Report : [id number] Signed PATIENT: JUAN MANUEL CHAVEZ ACCT: [id number] UNIT: [id number] : 1950 LOC: ER ROOM / BED: / AGE / SEX: 74 / F ADM STATUS: REG ER SERVICE [id number] ORDERING PHYSICIAN: REBA BAZZI MD PROCEDURE(s): CXRP - CHEST PORTABLE REASON: r/o pna ORDER NUMBER(s): [id number], ACCESSION NUMBER(s): [id number] CHEST RADIOGRAPH INDICATION: r/o pna TECHNIQUE: Single frontal view of the chest was obtained COMPARISON: None FINDINGS: Lines and Tubes: None Lungs: No focal consolidation. Elevated right hemidiaphragm with right basilar linear density. Pleura: No effusion. No pneumothorax. Cardiomediastinal contours: Unremarkable. Left-sided approach single lead pacemaker terminating within the right ventricle. Bones: No acute osseous abnormality. IMPRESSION: Right basilar linear atelectasis. Otherwise, no evidence for acute cardiopulmonary disease. ATED BY: ISABELLE MCCURDY DO DICTATED DATE/TIME: 05/19/251432 SIGNED BY: ISABELLE MCCURDY DO SIGNED DATE/TIME: 05/19/251432 CC: X-Ray, Labs, Meds, VS Comment 74-year-old male to female transgender patient here today with a presentation c onsistent with a likely COVID pneumonia. Patient is satting well on room air. Does not require oxygen supplementation, no indication for dexamethasone. Patient to be admitted for further management and care. Images Reviewed?: Images reviewed and evaluated by me Time of 1ST Reevaluation: 13:30 Reevaluation 1ST: Unchanged Patient Education/Counseling: Diagnosis, Treatment Family Education/Counseling: No Family Present SEPSIS Sepsis Screen Date sepsis recognized/suspect: May 19, 2025 Time Sepsis recognized/suspect: 1110 Recent Procedure: No On Antibiotic Therapy: No Respiratory Rate >20: No Heart Rate >90: No Temp<36 C (96.8 F) or >38.3 C: No SBP <90 or MAP <65 mmHG: No New Acute Mental Status Change: No Is the patient on CPAP, BIPAP,: No Physician Orders Blood Culture (05/19/25 12:57) Respiratory Syncytial Virus Ag (05/19/25 12:57) Chest Portable (05/19/25 12:57) Vital Signs Date Time Temp Pulse Resp B/P (MAP) Pulse Ox O2 Delivery O2 Flow Rate FiO2 05/19/25 15:14 100.8 81 18 112/70 (84) 93 100.8 05/19/25 11:10 98.4 81 22 159/68 94 98.4 Laboratory Tests Test 05/19/25 13:12 05/19/25 13:17 Lactic Acid Level 1.3 mmol/L (0.4-2.0) White Blood Count 12.7 10^3/uL (4.4-10.8) H Departure 1 Departure Time of Disposition: 18:59 Impression: Primary Impression: Pneumonia due to COVID-19 virus Disposition: ADMITTED INPATIENT Admit to: Med Surg Condition: Stable Critical Care Note Critical Care Time?: Yes (30 min-critical care time only) Stability Stability form required: No Heart Score Heart Score: Heart Score Response (Comments) Value History N/A 0 EKG N/A 0 Age N/A 0 Risk Factors N/A 0 Troponin N/A 0 Total 0 I personally scribed for REBA BAZZI MD ([email or web address]) on 05/19/25 at 12:08. Electronically submitted by Fransisca Valente ([email or web address]). I personally scribed for REBA BAZZI MD (DVFAR) on 05/19/25 at 13:05. Electronically submitted by Fransisca Valente ([email or web address]). I personally scribed for REBA BAZZI MD (DVFAR) on 05/19/25 at 13:52. Electronically submitted by Fransisca Valente ([email or web address]). I personally scribed for REBA BAZZI MD ([email or web address]) on 05/19/25 at 15:59. Electronically submitted by Fransisca Valente ([email or web address]). REBA BAZZI MD May 19, 2025 12:08
[2025-05-19 13:54] LABS: Hematocrit 38.4 % (36.0-46.0); Hemoglobin 12.6 g/dL (12.2-16.2); Mean Corpuscular Hemoglobin 29.3 pg (28.0-32.0); Mean Corpuscular Volume 89.0 fL (80.0-100.0); Nucleated Red Blood Cells % 0.1 %
[2025-05-19 14:32] LABS: Chloride 99 mmol/L (98-107); Potassium 4.6 mmol/L (3.5-5.1); Sodium 136 mmol/L (136-145)
[2025-05-19 14:33] LABS: Anion Gap 11 (5-15); Carbon Dioxide 26 mmol/L (20-31)
--- NOTE | 2025-05-19 14:35 | DVH ---
CHEST RADIOGRAPH INDICATION: r/o pna TECHNIQUE: Single frontal view of the chest was obtained COMPARISON: None FINDINGS: Lines and Tubes: None Lungs: No focal consolidation. Elevated right hemidiaphragm with right basilar linear density. Pleura: No effusion. No pneumothorax. Cardiomediastinal contours: Unremarkable. Left-sided approach single lead pacemaker terminating within the right ventricle. Bones: No acute osseous abnormality. IMPRESSION: Right basilar linear atelectasis. Otherwise, no evidence for acute cardiopulmonary disease.
[2025-05-19 14:38] LABS: BUN/Creatinine Ratio 13.3 (10.0-20.0); Blood Urea Nitrogen 14 mg/dL (9-23)
[2025-05-19 14:39] LABS: Calcium 8.7 mg/dL (8.7-10.4); Glucose 163 mg/dL (74-106)
[2025-05-19 14:43] LABS: Urine Protein, UAD TRACE (Negative)
[2025-05-19 15:18] LABS: COVID19 ANTIGEN SOFIA FIA POSITIVE (NEGATIVE)
[2025-05-19] MEDS ORDERED: DOCUSATE SOD 100 MG CAP PO PRN (17:30)
[2025-05-19] MEDS ORDERED: ONDANSETRON HCL 4 MG/2 ML VIAL IV PRN (17:30)
[2025-05-19] MEDS ORDERED: HYDROcodone-ACET 5/325MG TAB PO PRN (17:30)
[2025-05-19] MEDS ORDERED: ESTR2TAB5 PO (17:43)
--- NOTE | 2025-05-19 17:56 | DVHHP2 ---
History of Present Illness Reason for Visit: Flu like symptoms History of Present Illness Katty Marsh is a 74-year-old biological Male who transitioned to female, with past medical history of diabetes, coronary artery disease, obstructive sleep apnea, and hypertension, who came to the hospital with complaints of flu-like symptoms. Patient states, she has been experiencing flu-like symptoms including: cough, nasal congestion, fever, and body aches 2-3 days. Cardiovascular: CAD, HTN, Other (pacemaker, PTCA with stent placement November 2024) Pulmonary: Other (obstructive sleep apnea with CPAP with oxygen) Endocrine: Diabetes Past Surgical History: Other (Gender reassignment surgeries, pacemaker, gastric bypass) Smoke: No ALCOHOL: rare Drugs: None Lives: with Family Domestic Violence: Neg Review of Systems Constitutional: Yes: Fever, Chills, Weakness, Malaise; No: Sweats, Other Eyes: No: Pain, Vision change, Conjunctivae inflammation, Eyelid inflammation, Other, Redness ENT: No: Ear pain, Ear discharge, Nose pain, Nose discharge, Nose congestion, Mouth pain, Mouth swelling, Throat pain, Throat swelling, Other Respiratory: Cough, Shortness of breath, SOB with excertion, Wheezing, Sputum (yellow), Wheezing; No: Dry, Hemoptysis, Pleuritic Pain, Other Cardiovascular: No: Chest Pain, Palpitations, Orthopnea, Paroxysmal Noc. Dyspne a, Edema, Lt Headedness, Other Gastrointestinal: No: Nausea, Vomiting, Abdominal Pain, Diarrhea, Constipation, Melena, Hematochezia, Other Genitourinary: No Dysuria, No Frequency, No Incontinence, No Hematuria, No Retention, No Other Musculoskeletal: No: other, neck pain, shoulder pain, arm pain, back pain, hand pain, leg pain, foot pain Skin: No: Rash, Lesions, Jaundice, Bruising, Other Neurological: No: Weakness, Numbness, Incoordination, Change in speech, Confusion, Seizures, Other Allergies: Coded Allergies: Griseofulvin (Verified Allergy, Unknown, 05/19/25) Levofloxacin (Verified Allergy, Unknown, 05/19/25) Montelukast (Verified Allergy, Unknown, 05/19/25) Metoprolol (Verified Adverse Reaction, Unknown, 03/07/25) States that she had reaction to Metoprolol before, forgot what reaction was. Uncoded Allergies: IVP dye, Levaquin, Griseofulvin, Montelukast (Allergy, Severe, 11/14/24) IV CONTRAST (Allergy, Unknown, 05/19/25) Medications Current Medications Medications Dose Ordered Sig/Kerry Route Start Time Stop Time Status Last Admin Dose Admin Sodium Chloride 10 ml Q8HR IV 05/19/25 22:00 UNV Acetaminophen/ Hydrocodone Bitart 1 tab Q4HP PRN PO 05/19/25 17:30 UNV Ondansetron HCl 4 mg Q4HP PRN IV 05/19/25 17:30 UNV Docusate Sodium 100 mg BIDPRN PRN PO 05/19/25 17:30 UNV Enoxaparin Sodium 40 mg DAILY SC 05/20/25 10:00 UNV Zinc Sulfate 220 mg DAILY PO 05/20/25 10:00 UNV Ascorbic Acid 500 mg BID PO 05/19/25 22:00 UNV Multivitamins 1 tab DAILY PO 05/20/25 10:00 UNV Acetaminophen 650 mg Q6HP PRN PO 05/19/25 17:30 UNV Exam Vital Signs Vital Signs Date Time Temp Pulse Resp B/P (MAP) Pulse Ox O2 Delivery O2 Flow Rate FiO2 05/19/25 15:14 100.8 81 18 112/70 (84) 93 100.8 General Appearance: Alert, Oriented X3, Cooperative, mild distress HEENT: Atraumatic, PERRLA Respiratory: Other (Diminished breath sounds, wheezing) Cardiovascular: Regular rate, Normal S1, Normal S2 Abdominal: Normal bowel sounds, Soft, No tenderness Extremities: No clubbing, No cyanosis, No edema, Normal pulses, No tenderness/swelling Skin: No rashes, No breakdown, No significant lesion Neuro: Normal gait, Normal speech, Strength at 5/5 X4 ext, Normal tone Psych/Mental Status: Mental status NL, Mood NL Labs/Xrays Labs Test 05/19/25 16:39 05/19/25 13:17 05/19/25 13:12 05/19/25 13:07 Range/Units Troponin I High Sensitivity 7 </=34 ng/L White Blood Count 12.7 H 4.4-10.8 10^3/uL Red Blood Count 4.31 4.0-5.20 10^6/uL Hemoglobin 12.6 12.2-16.2 g/dL Hematocrit 38.4 36.0-46.0 % Mean Corpuscular Volume 89.0 80.0-100.0 fL Mean Corpuscular Hemoglobin 29.3 28.0-32.0 pg Mean Corpuscular Hemoglobin Concent 32.9 32.0-36.0 g/dL Red Cell Distribution Width 15.4 H 11.8-14.3 % Platelet Count 191 140-450 10^3/uL Mean Platelet Volume 8.1 6.9-10.8 fL Neutrophils (%) (Auto) 84.0 H 37.0-80.0 % Lymphocytes (%) (Auto) 6.2 L 10.0-50.0 % Monocytes (%) (Auto) 9.5 0.0-12.0 % Eosinophils (%) (Auto) 0.1 0.0-7.0 % Basophils (%) (Auto) 0.2 0.0-2.0 % Neutrophils # (Auto) 10.6 H 1.6-8.6 10 ^3/uL Lymphocytes # (Auto) 0.8 0.4-5.4 10 ^3/uL Monocytes # (Auto) 1.2 0-1.3 10 ^3/uL Eosinophils # (Auto) 0 0-0.8 10 ^3/uL Basophils # (Auto) 0 0-0.2 10 ^3/uL Nucleated Red Blood Cells 0.1 % Sodium Level 136 136-145 mmol/L Potassium Level 4.6 3.5-5.1 mmol/L Chloride Level 99 98-107 mmol/L Carbon Dioxide Level 26 20-31 mmol/L Anion Gap 11 5-15 Blood Urea Nitrogen 14 9-23 mg/dL Creatinine 1.05 H 0.550-1.02 mg/dL Glomerular Filtration Rate Calc 56 >90 mL/min BUN/Creatinine Ratio 13.3 10.0-20.0 Serum Glucose 163 H 74-106 mg/dL Calcium Level 8.7 8.7-10.4 mg/dL Lipase 28 12-53 U/L Lactic Acid Level 1.3 0.4-2.0 mmol/L B-Type Natriuretic Peptide 277.05 0-100 pg/mL Urine Color Yellow Yellow Urine Clarity Clear Clear Urine pH 5.5 5.0-9.0 Urine Specific [place] 1.020 1.001-1.035 Urine Protein Trace H Negative Urine Ketones 1+ H Negative Urine Blood Negative Negative /uL Urine Nitrite Negative Negative Urine Bilirubin Negative Negative Urine Urobilinogen Normal Negative mg/dL Urine Leukocyte Esterase Negative Negative /uL Urine RBC 2 0 - 4 /hpf Urine Microscopic WBC 3 0-5 /HPF Urine Squamous Epithelial Cells Few <5 /hpf Urine Bacteria None seen None Seen /hpf Urine Mucus Few None Seen Urine Glucose Normal Normal mg/dL Influenza Type A Antigen Negative Negative Influenza Type B Antigen Negative Negative SARS-CoV-2 Antigen (Rapid) Positive NEGATIVE CHEST RADIOGRAPH FINDINGS: Lines and Tubes: None Lungs: No focal consolidation. Elevated right hemidiaphragm with right basilar linear density. Pleura: No effusion. No pneumothorax. Cardiomediastinal contours: Unremarkable. Left-sided approach single lead pacemaker terminating within the right ventricle. Bones: No acute osseous abnormality. IMPRESSION: Right basilar linear atelectasis. Otherwise, no evidence for acute cardiopulmonary disease. SEPSIS Sepsis Screen Date sepsis recognized/suspect: May 19, 2025 Time Sepsis recognized/suspect: 1110 Recent Procedure: No On Antibiotic Therapy: No Respiratory Rate >20: No Heart Rate >90: No Temp<36 C (96.8 F) or >38.3 C: No SBP <90 or MAP <65 mmHG: No New Acute Mental Status Change: No Is the patient on CPAP, BIPAP,: No Physician Orders Blood Culture (05/19/25 12:57) Respiratory Syncytial Virus Ag (05/19/25 12:57) Chest Portable (05/19/25 12:57) Admit (05/19/25 17:19) Code Status (05/19/25 17:19) Sodium Chloride Lock (Saline Lock Ns) (05/19/25 22:00) Hydrocodone-Acet 5/325mg Tab ([place] 5/32 (05/19/25 17:30) Ondansetron Hcl (Zofran) (05/19/25 17:30) Docusate Sodium Capsule (Colace Capsule) (05/19/25 17:30) Enoxaparin Sodium (Lovenox) (05/20/25 10:00) Zinc Sulfate (05/20/25 10:00) Ascorbic Acid Tablet (Vitamin C Tablet) (05/19/25 22:00) Multiple Vitamin Tablet (Mvi Tab) (05/20/25 10:00) Complete Blood Count (05/20/25 04:00) Comprehensive Metabolic Panel (05/20/25 04:00) Condition: Serious (05/19/25 17:19) Acetaminophen Tablet (Tylenol Tablet) (05/19/25 17:30) Isolation Order (05/19/25:) Precautions (Contact,Droplets, (05/19/25:) D-Dimer (05/19/25:) Magnesium (05/19/25:) Thyroid Stimulating Hormone (05/19/25:) Comprehensive Metabolic Panel (05/20/25 05:30) Complete Blood Count (05/23/25 05:30) Comprehensive Metabolic Panel (05/23/25 05:) Lactate Dehydrogenase (05/23/25:) Chest Portable (05/20/25 07:00) Chest Portable (05/23/25 07:00) Electrocardigram (05/23/25 08:00) Zinc 220 Mg Po Daily (05/20/25 10:00) Albuterol Inh (Covid-19) 90mcg (05/19/25:30) Oob To Chair Q4HR (05/19/25:) Incentive Spirometry Q 1hr (05/19/25:) Urinalysis (05/19/25:) C-Reactive Protein (05/23/25:) Decadron 6mg Iv Daily (05/20/25 10:00) Azithromycin 500mg/250ml (Zithromax 500m (05/20/25 10:00) Azithromycin 500mg/250ml (Zithromax 500m (05/19/25 17:30) Vital Signs Date Time Temp Pulse Resp B/P (MAP) Pulse Ox O2 Delivery O2 Flow Rate FiO2 05/19/25 15:14 100.8 81 18 112/70 (84) 93 100.8 05/19/25 11:10 98.4 81 22 159/68 94 98.4 Laboratory Tests Test 05/19/25 13:12 05/19/25 13:17 Lactic Acid Level 1.3 mmol/L (0.4-2.0) White Blood Count 12.7 10^3/uL (4.4-10.8) H Assessment/Plan Assessment/Plan Assessment: Pneumonia due to COVID-19 virus, Hypoxemia, Hyperglycemia, Hypertension, Diabetes, Plan: Admit to Med-Surg, IV antibiotics, IV steroids, Breathing treatments as needed, Supplemental oxygen as needed, A1c, Home medications reconciled, Plan discussed with: Patient My Orders Orders - RUBÉN FOXYSTAL Vargas DRAFTER CIVIL (CAD) Procedure Category Date Status Time Admit ADMIT 05/19/25 Transmitted 17:19 Code Status CODE 05/19/25 Transmitted 17:19 Sodium Chloride Lock PHA 05/19/25 Logged (Saline Lock Ns) 22:00 Hydrocodone-Acet PHA 05/19/25 Logged 5/325mg Tab ([place] 17:30 Ondansetron Hcl PHA 05/19/25 Logged (Zofran) 17:30 Docusate Sodium PHA 05/19/25 Logged Capsule (Colace 17:30 Enoxaparin Sodium PHA 05/20/25 Logged (Lovenox) 10:00 Zinc Sulfate PHA 05/20/25 Logged 10:00 Ascorbic Acid Tablet PHA 05/19/25 Logged (Vitamin C Tablet) 22:00 Multiple Vitamin PHA 05/20/25 Logged Tablet (Mvi Tab) 10:00 Complete Blood Count LAB 05/20/25 Verified 04:00 Comprehensive LAB 05/20/25 Verified Metabolic Panel 04:00 Condition: Serious SRINIVAS 05/19/25 In Process 17:19 Acetaminophen Tablet PHA 05/19/25 Logged (Tylenol Tablet) 17:30 Isolation Order ORDERS 05/19/25 Transmitted 17:28 Precautions SRINIVAS 05/19/25 Transmitted (Contact,Droplets, 17:28 D-Dimer LAB 05/19/25 Transmitted 17:28 Magnesium LAB 05/19/25 Transmitted 17:28 Thyroid Stimulating LAB 05/19/25 Transmitted Hormone 17:28 Comprehensive LAB 05/20/25 Verified Metabolic Panel 05:30 Complete Blood Count LAB 05/23/25 Verified 05:30 Comprehensive LAB 05/23/25 Verified Metabolic Panel 05:30 Lactate Dehydrogenase LAB 05/23/25 Verified 05:30 Chest Portable XY 05/20/25 Transmitted 07:00 Chest Portable XY 05/23/25 Transmitted 07:00 Electrocardigram EKG 05/23/25 Transmitted 08:00 Zinc 220 Mg Po Daily PHA 05/20/25 Transmitted 10:00 Albuterol Inh PHA 05/19/25 Transmitted (Covid-19) 90mcg 17:30 Oob To Chair SRINIVAS 05/19/25 Transmitted 17:28 Incentive Spirometry ORDERS 05/19/25 Transmitted Q 1hr 17:28 Urinalysis LAB 05/19/25 Transmitted 17:28 C-Reactive Protein LAB 05/23/25 Verified 17:28 Decadron 6mg Iv Daily PHA 05/20/25 Transmitted 10:00 Azithromycin PHA 05/20/25 Transmitted 500mg/250ml 10:00 Azithromycin PHA 05/19/25 Transmitted 500mg/250ml 17:30 Date of Service: May 19, 2025 Billing Provider: ALBERTA FOX Common Visit Codes: [id number] INP/OBS CARE (MOD) ALBERTA FOX May 19, 2025 17:56
[2025-05-19 22:25] VITALS: PULSE 80; RESP 18; O2SAT 93
[2025-05-19 22:26] VITALS: PULSE 81; RESP 18; O2SAT 94
[2025-05-19] MEDS: ALBUTEROL SULF HFA 90MCG INH 200DOSE IN PRN (22:29)
[2025-05-19 22:33] VITALS: BP 131/58; PULSE 81; RESP 18; TEMP 101.1; O2SAT 93
[2025-05-19] MEDS: ASCORBIC ACID 500 MG TAB PO SCH (23:40)
[2025-05-19] MEDS: ACETAMINOPHEN 325 MG TAB PO PRN (23:41)
[2025-05-19] MEDS: SODIUM CHLOR 0.9% PF (SALINE LOCK) 10ML VIAL/SYR IV SCH (23:41)
[2025-05-19] MEDS: AZITHROMYCIN 500MG/250ML 250 ML IV ONE (23:42)
[2025-05-20] VITALS (13 sets, daily range): BP systolic 118–134; BP diastolic 62–88; PULSE 72–79; RESP 16–20; TEMP 97.2–98.2; O2SAT 89–97
--- NOTE | 2025-05-20 00:39 | DVH ---
CHEST RADIOGRAPH INDICATION: Covid-19 pneumonia TECHNIQUE: 1 view COMPARISON: XY CHEST PORTABLE on DOS: 05/19/25 FINDINGS: Lines and Tubes: Unchanged left implanted cardiac device. Lungs/Pleura: Similar scarring/atelectasis in the lung bases. No focal consolidation, pleural effusion or pneumothorax. Cardiomediastinum: Size within normal limits for technique. Other: No acute osseous abnormality. IMPRESSION: 1. No acute cardiopulmonary abnormality or significant change from the prior exam.
[2025-05-20 09:01] LABS: Hematocrit 36.7 % (36.0-46.0); Hemoglobin 12.2 g/dL (12.2-16.2); Mean Corpuscular Hemoglobin 29.2 pg (28.0-32.0); Mean Corpuscular Volume 88.0 fL (80.0-100.0); Nucleated Red Blood Cells % 0.0 %
[2025-05-20 09:22] LABS: Alanine Aminotransferase 20 U/L (7-40); Albumin 3.9 g/dL (3.2-4.8); Anion Gap 10 (5-15); BUN/Creatinine Ratio 12.0 (10.0-20.0); Bilirubin, Total 0.8 mg/dL (0.2-1.0); Blood Urea Nitrogen 13 mg/dL (9-23); Carbon Dioxide 28 mmol/L (20-31); Chloride 99 mmol/L (98-107); Potassium 4.7 mmol/L (3.5-5.1); Sodium 137 mmol/L (136-145); Total Protein 6.7 g/dL (5.7-8.2)
[2025-05-20 09:24] LABS: Alkaline Phosphatase 34 U/L (46-116); Calcium 8.6 mg/dL (8.7-10.4); Glucose 174 mg/dL (74-106)
[2025-05-20] MEDS: DIGOXIN 0.125 MG TAB PO SCH (09:42)
[2025-05-20] MEDS: CLOPIDOGREL BISULFATE 75 MG TAB PO SCH (09:43)
[2025-05-20] MEDS: MULTIPLE VITAMIN TAB PO SCH ×2 (09:44→10:00)
[2025-05-20] MEDS: FUROSEMIDE 20 MG TAB PO SCH (09:45)
[2025-05-20] MEDS: CHOLECALCIFEROL (VITD3) 1,000UNIT=25mCg TAB PO SCH (09:47)
[2025-05-20] MEDS: ENOXAPARIN SOD 40 MG/0.4 ML SYRINGE SC SCH (09:48)
[2025-05-20] MEDS: AZITHROMYCIN 500MG/250ML 250 ML IV SCH (10:00)
[2025-05-20] MEDS: ZINC SULFATE 220mg CAP or TAB PO SCH ×2 (10:00→11:14)
--- NOTE | 2025-05-20 14:42 | DVHPN2 ---
Reviewed: Care Plan Changes from previous H/P or p: No Changes Eyes: No Pain, No Vision change, No Conjunctivae inflammation, No Eyelid inflammation, No Other, No Redness ENT: No Ear pain, No Ear discharge, No Nose pain, No Nose discharge, No Nose congestion, No Mouth pain, No Mouth swelling, No Throat pain, No Throat swelling, No Other Cardiovascular: No Chest Pain, No Palpitations, No Orthopnea, No Paroxysmal Noc. Dyspnea, No Edema, No Lt Headedness, No Other Respiratory: Cough; No Dry; Shortness of breath, SOB with excertion, Wheezing; No Hemoptysis, No Pleuritic Pain; Sputum (yellow); No Other Gastrointestinal: No Nausea, No Vomiting, No Abdominal Pain, No Diarrhea, No Constipation, No Melena, No Hematochezia, No Other Genitourinary: No Dysuria, No Frequency, No Incontinence, No Hematuria, No Retention, No Other Musculoskeletal: No other, No neck pain, No shoulder pain, No arm pain, No back pain, No hand pain, No leg pain, No foot pain Skin: No Rash, No Lesions, No Jaundice, No Bruising, No Other Objective Vitals Vital Signs Date Time Temp Pulse Resp B/P (MAP) Pulse Ox O2 Delivery O2 Flow Rate FiO2 05/20/25 13:00 97.2 73 18 134/67 (89) 95 97.2 05/20/25 07:48 Nasal Cannula* 3 32 Intake/Output Intake and Output 05/20/25 07:00 Intake Total 0 ml Balance 0 ml Intake Oral 0 ml Medications Current Medications Medications Dose Ordered Sig/Kerry Route Start Time Stop Time Status Last Admin Dose Admin Sodium Chloride 10 ml Q8HR IV 05/19/25 22:00 05/20/25 06:00 10 ML Acetaminophen/ Hydrocodone Bitart 1 tab Q4HP PRN PO 05/19/25 17:30 Ondansetron HCl 4 mg Q4HP PRN IV 05/19/25 17:30 Docusate Sodium 100 mg BIDPRN PRN PO 05/19/25 17:30 Enoxaparin Sodium 40 mg DAILY SC 05/20/25 10:00 05/20/25 09:48 40 MG Ascorbic Acid 500 mg BID PO 05/19/25 22:00 05/20/25 09:43 500 MG Acetaminophen 650 mg Q6HP PRN PO 05/19/25 17:30 05/19/25 23:41 650 MG Zinc Sulfate 220 mg DAILY PO 05/20/25 10:00 Albuterol 90 mcg TIDPRN PRN IN 05/19/25 17:30 05/19/25 22:29 90 MCG Dexamethasone Sodium Phosphate 6 mg DAILY IV 05/20/25 10:00 05/30/25 09:59 05/20/25 09:40 6 MG Azithromycin 250 ml @ 125 mls/hr DAILY IV 05/20/25 10:00 Clopidogrel Bisulfate 75 mg DAILY PO 05/20/25 10:00 05/20/25 09:43 75 MG Furosemide 20 mg MWF PO 05/20/25 10:00 05/20/25 09:45 20 MG Glyburide 5 mg DAILY PO 05/20/25 10:00 Multivitamins 1 tab DAILY PO 05/20/25 10:00 Cholecalciferol 5,000 unit DAILY PO 05/20/25 10:00 05/20/25 09:47 5,000 UNIT Digoxin 0.25 mg DAILY PO 05/20/25 10:00 05/20/25 09:42 0.25 MG Patient Own Medication 15 mg DAILY PO 05/20/25 10:00 Medroxyprogesterone Acetate 10 mg DAILY PO 05/20/25 10:00 Patient Own Medication 1 tab BID PO 05/20/25 10:00 Laboratory Results Laboratory Tests 05/20/25 08:39 Chemistry Test 05/20/25 08:39 Albumin 3.9 g/dL (3.2-4.8) Calcium Level 8.6 mg/dL (8.7-10.4) L Total Protein 6.7 g/dL (5.7-8.2) Coagulation Test 05/19/25 18:48 D-Dimer, Quantitative 0.78 mg/L FEU (0.0-0.49) H LFT Test 05/20/25 08:39 Alanine Aminotransferase (ALT) 20 U/L (7-40) Alkaline Phosphatase 34 U/L (46-116) L Aspartate Amino Transferase (AST) 43 U/L (13-40) H Total Bilirubin 0.8 mg/dL (0.2-1.0) HgA1c, TSH Test 05/20/25 08:39 Hemoglobin A1c 6.3 % A1C (<5.7) H Urinalysis Test 05/19/25 13:07 Urine Color Yellow (Yellow) Urine Clarity Clear (Clear) Urine pH 5.5 (5.0-9.0) Urine Specific [place] 1.020 (1.001-1.035) Urine Protein Trace (Negative) H Urine Ketones 1+ (Negative) H Urine Blood Negative /uL (Negative) Urine Nitrite Negative (Negative) Urine Bilirubin Negative (Negative) Urine Urobilinogen Normal mg/dL (Negative) Urine Leukocyte Esterase Negative /uL (Negative) Urine RBC 2 /hpf (0 - 4) Urine Microscopic WBC 3 /HPF (0-5) Urine Squamous Epithelial Cells Few /hpf (<5) Urine Bacteria None seen /hpf (None Seen) Urine Mucus Few (None Seen) Urine Glucose Normal mg/dL (Normal) Microbiology Microbiology Date/Time Source Procedure Growth Status 05/19/25 13:17 Blood Blood Culture - Preliminary NO GROWTH AFTER 24 HOURS OF INCUBATION. Resulted Labs and/or images reviewed: Labs reviewed by me, Image(s) reviewed by me Assessment/Plan Assessment/Plan Pneumonia due to COVID-19 virus, azithromycin albuterol Atrovent zinc vitamin-C vitamin D3 Acute hypoxic respiratory failure Hyperglycemia, Hypertension, Diabetes, Acute chronic congestive heart failure exacerbation: Digoxin Lasix Time Spent 70 minutes Advanced care planning time 20 minutes Patient is full code Plan discussed with: Patient My Orders Orders - ORLANDO BOUCHER MD Procedure Category Date Status Time * Urology Consult CONS 05/20/25 Transmitted 14:38 Date of Service: May 20, 2025 Billing Provider: ORLANDO BOUCHER MD Common Visit Codes: [id number] INP/OBS CARE(HIGH) ORLANDO BOUCHER MD May 20, 2025 14:41
[2025-05-20] MEDS ORDERED: DOXYCYCLINE 100MG/100ML 100 ML IV SCH (15:29)
--- NOTE | 2025-05-20 15:34 | DVHINCON2 ---
Date of service: May 20, 2025 History of Present Illness HPI Patient is a 74-year-old female (transgender male to female) who presented with few days of flu-like symptoms (cough/nasal congestion/fever/body pains). Was found to have oxygen saturation of 95% in emergency room. Was found to be positive COVID-19 and is admitted for COVID pneumonia. Cardiology is involved for cardiac aspects of care. Patient is known to us from before and outside. Does have history of coronary artery disease and has had PCI/stent in LAD (November 2024) for which is kept on aspirin/Plavix as outpatient. Denies any chest pains. Denies loss of consciousness/palpitation/dizziness. Home Meds Reported Medications Estradiol (Estradiol) 2 Mg Tab, 1 TAB PO BID 05/19/25 Escitalopram Oxalate (Lexapro) 20 Mg Tab, 15 MG PO DAILY, TAB 03/07/25 Magnesium Oxide (MAGNESIUM OXIDE) 400 Mg Tab, TAB 03/07/25 Clopidogrel Bisulfate (Plavix) 75 Mg Tab, 75 MG PO DAILY, TAB 03/07/25 Doxepin HCl (Doxepin Hydrochloride) 10 Mg Cap, 10 MG PO, CAP 03/07/25 Furosemide (Furosemide) 20 Mg Tab, 1 TAB PO Sunday Fr, #90 TAB 1 Refill 03/07/25 Medroxyprogesterone Acetate (Medroxyprogesterone Aceta) 10 Mg Tab, 10 MG PO DAILY, MG 11/14/24 Cholecalciferol (Vitamin D) 5,000 Unit Cap, 5000 UNIT PO DAILY, CAP 11/14/24 Multiple Vitamin (Multi Vitamin) 1 Tab Tab, 1 TAB PO DAILY, TAB 11/14/24 Nebivolol Hcl (Bystolic) 10 Mg Tab, 1.5 TAB PO DAILY, #90 TAB 1 Refill 11/14/24 Digoxin (Digoxin) 250 Mcg Tab, 250 MCG PO DAILY, TAB 11/14/24 Glyburide (Glyburide) 5 Mg Tab, 5 MG PO DAILY for 30 Days, MG 11/14/24 Discontinued Scripts Cephalexin (KEFLEX CAPSULE) 250 Mg Cp, 1 CAP PO QID, #28 CAP Prov:ORLANDO BOUCHER MD 03/10/25 Past Medical History Others Past medical history includes morbid obesity, diabetes mellitus, hypertension, obstructive sleep apnea (on CPAP as outpatient), coronary artery disease, status post PCI, CKD, diastolic heart failure, pulmonary hypertension, paroxysmal AFib (refuses full anticoagulation), status [facility], history of urethral stricture and gastric bypass. Patient Family History: FH: Parkinson's disease G8 MOTHER G8 FATHER FH: atrial fibrillation G8 FATHER FH: colon cancer G8 FATHER FH: hypertension G8 FATHER FH: total knee replacement G8 MOTHER G8 FATHER Sepsis Smoker: Quit Alocohol: None Drugs: None Lives with: With family Review of Systems Constitutional: Chills, Diaphoresis, Fever, Malaise Ears, Nose, & Throat: Nose congestion, Throat pain Pulmonary/Respiratory: Dyspnea, Cough Cardiovascular: No symptom reported Gastrointestinal: No symptom reported All Other Systems 14 point review of system was performed. Relevant findings as per above and as per HPI. Otherwise negative. H&P Exam Vital Signs Vital Signs Date Time Temp Pulse Resp B/P (MAP) Pulse Ox O2 Delivery O2 Flow Rate FiO2 05/20/25 13:00 97.2 73 18 134/67 (89) 95 97.2 05/20/25 10:30 Nasal Cannula 4.0 05/20/25 10:30 32 General Appeara: Well developed, Obese Head Exam: Normal inspection Eye Exam: bilateral eye PERRL Mouth: Normal Inspection Pulmonary/Respiratory: Rhonci Cardiovascular/Chest: Edema, Regular rate, Systolic murmur Peripheral Pulses: 2+ carotid (R), 2+ carotid (L), 2+ femoral (R), 2+ femoral (L) Abdominal Exam: Normal bowel sounds, Soft Neuro/Mental St: Alert, Oriented Appearance: Appropriate appearance Eye contact/ Speech: Cooperative Labs/Xrays Labs Test 05/20/25 08:39 05/19/25 18:48 05/19/25 16:39 05/19/25 13:17 Range/Units White Blood Count 12.2 H 4.4-10.8 10^3/uL Red Blood Count 4.17 4.0-5.20 10^6/uL Hemoglobin 12.2 12.2-16.2 g/dL Hematocrit 36.7 36.0-46.0 % Mean Corpuscular Volume 88.0 80.0-100.0 fL Mean Corpuscular Hemoglobin 29.2 28.0-32.0 pg Mean Corpuscular Hemoglobin Concent 33.2 32.0-36.0 g/dL Red Cell Distribution Width 15.4 H 11.8-14.3 % Platelet Count 177 140-450 10^3/uL Mean Platelet Volume 8.2 6.9-10.8 fL Neutrophils (%) (Auto) 86.8 H 37.0-80.0 % Lymphocytes (%) (Auto) 6.2 L 10.0-50.0 % Monocytes (%) (Auto) 6.7 0.0-12.0 % Eosinophils (%) (Auto) 0.0 0.0-7.0 % Basophils (%) (Auto) 0.3 0.0-2.0 % Neutrophils # (Auto) 10.6 H 1.6-8.6 10 ^3/uL Lymphocytes # (Auto) 0.8 0.4-5.4 10 ^3/uL Monocytes # (Auto) 0.8 0-1.3 10 ^3/uL Eosinophils # (Auto) 0 0-0.8 10 ^3/uL Basophils # (Auto) 0 0-0.2 10 ^3/uL Nucleated Red Blood Cells 0.0 % Sodium Level 137 136-145 mmol/L Potassium Level 4.7 3.5-5.1 mmol/L Chloride Level 99 98-107 mmol/L Carbon Dioxide Level 28 20-31 mmol/L Anion Gap 10 5-15 Blood Urea Nitrogen 13 9-23 mg/dL Creatinine 1.08 H 0.550-1.02 mg/dL Glomerular Filtration Rate Calc 54 >90 mL/min BUN/Creatinine Ratio 12.0 10.0-20.0 Serum Glucose 174 H 74-106 mg/dL Hemoglobin A1c 6.3 H <5.7 % A1C Calcium Level 8.6 L 8.7-10.4 mg/dL Total Bilirubin 0.8 0.2-1.0 mg/dL Aspartate Amino Transferase (AST) 43 H 13-40 U/L Alanine Aminotransferase (ALT) 20 7-40 U/L Alkaline Phosphatase 34 L 46-116 U/L Total Protein 6.7 5.7-8.2 g/dL Albumin 3.9 3.2-4.8 g/dL D-Dimer, Quantitative 0.78 H 0.0-0.49 mg/L FEU Troponin I High Sensitivity 7 </=34 ng/L Magnesium Level 2.1 1.6-2.6 mg/dL Lipase 28 12-53 U/L Thyroid Stimulating Hormone (TSH) 0.99 0.55-4.78 uIU/mL Test 05/19/25 13:12 05/19/25 13:07 Range/Units Lactic Acid Level 1.3 0.4-2.0 mmol/L B-Type Natriuretic Peptide 277.05 0-100 pg/mL Urine Color Yellow Yellow Urine Clarity Clear Clear Urine pH 5.5 5.0-9.0 Urine Specific [place] 1.020 1.001-1.035 Urine Protein Trace H Negative Urine Ketones 1+ H Negative Urine Blood Negative Negative /uL Urine Nitrite Negative Negative Urine Bilirubin Negative Negative Urine Urobilinogen Normal Negative mg/dL Urine Leukocyte Esterase Negative Negative /uL Urine RBC 2 0 - 4 /hpf Urine Microscopic WBC 3 0-5 /HPF Urine Squamous Epithelial Cells Few <5 /hpf Urine Bacteria None seen None Seen /hpf Urine Mucus Few None Seen Urine Glucose Normal Normal mg/dL Influenza Type A Antigen Negative Negative Influenza Type B Antigen Negative Negative SARS-CoV-2 Antigen (Rapid) Positive NEGATIVE Microbiology Date/Time Source Procedure Growth Status 05/19/25 13:17 Blood Blood Culture - Preliminary NO GROWTH AFTER 24 HOURS OF INCUBATION. Resulted Assessment/Plan Plan Patient is a 74-year-old female (transgender: male to female) who presented with few days of flu-like symptoms (cough/nasal congestion/fever/body pains). Was found to have oxygen saturation of 95% in emergency room. Was found to be positive COVID-19 and is admitted for COVID pneumonia. Cardiology is involved for cardiac aspects of care. Patient is known to us from before and outside. Does have history of coronary artery disease and has had PCI/stent in LAD (November 2024) for which is kept on aspirin/Plavix as outpatient. Denies any chest pains. Denies loss of consciousness/palpitation/dizziness. Obese, not in acute distress. Sitting in bed. No JVD. Mucosa is pink and wet. No carotid bruit. Not using accessory muscles of breathing. Gets into coughing episodes intermittently. Scattered rhonchi in the lungs is heard. Cardiac: Regular, no thrill/gallop. Systolic murmur 2/6 in the apex is heard. Abdomen is soft. Bowel sound is positive. There is no gross mass/hepatomegaly. 1+ bilateral edema in lower extremities. Dorsalis pedis is 2+ bilateral Past medical history includes morbid obesity, diabetes mellitus, hypertension, obstructive sleep apnea (on CPAP as outpatient), coronary artery disease, status post PCI, CKD, diastolic heart failure, pulmonary hypertension, paroxysmal AFib (refuses full anticoagulation), status post pacemaker ([facility]) implantation, history of urethral stricture and gastric bypass. Left heart catheterization of November 18, 2024 revealed coronary artery disease and the patient had PCI/drug-eluting stent deployment of LAD. Echocardiogram of August 2024 (performed in the office) revealed ejection fraction of 55-60% WBC: 12.7 D-dimer: 0.78 BNP: 277.05 Troponin (high sensitive): 7 - 8 - 7 Creatinine: 1.05 Potassium: 4.6 COVID-19: Positive Chest x-ray revealed: Lines and Tubes: None Lungs: No focal consolidation. Elevated right hemidiaphragm with right basilar linear density. Pleura: No effusion. No pneumothorax. Cardiomediastinal contours: Unremarkable. Left-sided approach single lead pacemaker terminating within the right ventricle. Bones: No acute osseous abnormality. IMPRESSION: Right basilar linear atelectasis. Otherwise, no evidence for acute cardiopulmonary disease. Repeat chest x-ray revealed: IMPRESSION: 1. No acute cardiopulmonary abnormality or significant change from the prior exam. EKG reveals sinus rhythm with no ST-T changes Patient is a 74-year-old transgender (male to female) who presented with few days of URI. She is found to have COVID pneumonia. Secondary to comorbidities, the patient is considered immunocompromised. COVID pneumonia Coronary artery disease, status post PCI Morbid obesity Diabetes mellitus Hypertension Paroxysmal AFib (refuses full anticoagulation) CKD Cardiac suggestion for management: Manage on telemetry Follow-up electrolytes and kidney function tests and correct abnormalities Continue Aspirin/Plavix Request for Echocardiogram Request for interrogation of pacemaker ([facility]) Evaluation and management of COVID pneumonia as per primary team/Pulmonary Further evaluation and management depends on the above and clinical course Thank you for consultation A total of 75 minutes was spent reviewing the patient record, examining the patient, making a diagnostic and therapeutic plan, discussing this plan with medical personnel, following up on diagnostic studies and following the patient for clinical stability excluding any and all procedures. At least 50% of this time was spent in direct, [id number] contact. Thank you for allowing me to participate in this patient's care. Further recommendations will depend on patient's clinical course. Please do not hesitate to contact me if you have any questions or concerns. This medical document was created using electronic medical record system with [employer] computerized dictation system. Although this document has been carefully reviewed, there may still be some phonetic and typographical errors. These areas are purely typographical due to the imperfection of the software programs, and do not reflect any compromise in the patient's medical care. Plan discussed with: Patient, Other (nurse) ROSINA TEIXEIRA MD May 20, 2025 15:34
--- NOTE | 2025-05-20 20:18 | DVHINCON2 ---
Date of service: May 20, 2025 Referring Physician Parul Boucher Reason for Consultation Previously seen for hematuria on 03/07/25 (see consultation report) History of Present Illness 74-year-old biological Male who transitioned to female, with past medical history of diabetes, coronary artery disease, obstructive sleep apnea, and hypertension, who came to the hospital with complaints of flu-like symptoms. Patient states, she has been experiencing flu-like symptoms including: cough, nasal congestion, fever, and body aches 2-3 days. Patient has constant dysuria x [address] Shola Fragoso regularly as his urologist. Past Medical History Cardiovascular: CAD, HTN, Other (pacemaker, PTCA with stent placement November 2024) Pulmonary: Other (obstructive sleep apnea with CPAP with oxygen) Endocrine: Diabetes Past Surgical History Other (Gender reassignment surgeries, pacemaker, gastric bypass) Cystoscopy per Dr. Fragoso Family History: FH: Parkinson's disease G8 MOTHER G8 FATHER FH: atrial fibrillation G8 FATHER FH: colon cancer G8 FATHER FH: hypertension G8 FATHER FH: total knee replacement G8 MOTHER G8 FATHER Sepsis Allergies: Coded Allergies: Azithromycin (Verified Allergy, Mild, 05/20/25) dizzy, sob, sweating Griseofulvin (Verified Allergy, Unknown, 05/19/25) Levofloxacin (Verified Allergy, Unknown, 05/19/25) Montelukast (Verified Allergy, Unknown, 05/19/25) Metoprolol (Verified Adverse Reaction, Unknown, 03/07/25) States that she had reaction to Metoprolol before, forgot what reaction was. Uncoded Allergies: IVP dye, Levaquin, Griseofulvin, Montelukast (Allergy, Severe, 11/14/24) IV CONTRAST (Allergy, Unknown, 05/19/25) Home Meds Reported Medications Estradiol (Estradiol) 2 Mg Tab, 1 TAB PO BID 05/19/25 Escitalopram Oxalate (Lexapro) 20 Mg Tab, 15 MG PO DAILY, TAB 03/07/25 Magnesium Oxide (MAGNESIUM OXIDE) 400 Mg Tab, TAB 03/07/25 Clopidogrel Bisulfate (Plavix) 75 Mg Tab, 75 MG PO DAILY, TAB 03/07/25 Doxepin HCl (Doxepin Hydrochloride) 10 Mg Cap, 10 MG PO, CAP 03/07/25 Furosemide (Furosemide) 20 Mg Tab, 1 TAB PO Sunday Fr, #90 TAB 1 Refill 03/07/25 Medroxyprogesterone Acetate (Medroxyprogesterone Aceta) 10 Mg Tab, 10 MG PO DAILY, MG 11/14/24 Cholecalciferol (Vitamin D) 5,000 Unit Cap, 5000 UNIT PO DAILY, CAP 11/14/24 Multiple Vitamin (Multi Vitamin) 1 Tab Tab, 1 TAB PO DAILY, TAB 11/14/24 Nebivolol Hcl (Bystolic) 10 Mg Tab, 1.5 TAB PO DAILY, #90 TAB 1 Refill 11/14/24 Digoxin (Digoxin) 250 Mcg Tab, 250 MCG PO DAILY, TAB 11/14/24 Glyburide (Glyburide) 5 Mg Tab, 5 MG PO DAILY for 30 Days, MG 11/14/24 Discontinued Scripts Cephalexin (KEFLEX CAPSULE) 250 Mg Cp, 1 CAP PO QID, #28 CAP Prov:ORLANDO BOUCHER MD 03/10/25 Current Medications Current Medications Medications (Trade) Dose Ordered Sig/Kerry Route PRN Reason Start Time Stop Time Status Last Admin Sodium Chloride (Saline Lock Ns) 10 ml Q8HR IV 05/19/25 22:00 05/20/25 14:54 Enoxaparin Sodium (Lovenox) 40 mg DAILY SC 05/20/25 10:00 05/20/25 09:48 Zinc Sulfate 220 mg DAILY PO 05/20/25 10:00 05/20/25 14:00 DC 05/20/25 11:14 Ascorbic Acid (Vitamin C Tablet) 500 mg BID PO 05/19/25 22:00 05/20/25 09:43 Multivitamins (Mvi Tab) 1 tab DAILY PO 05/20/25 10:00 05/20/25 14:00 DC 05/20/25 09:44 Zinc Sulfate 220 mg DAILY PO 05/20/25 10:00 Dexamethasone Sodium Phosphate (Decadron Injection) 6 mg DAILY IV 05/20/25 10:00 05/30/25 09:59 05/20/25 09:40 Azithromycin 250 ml @ 125 mls/hr DAILY IV 05/20/25 10:00 05/20/25 14:58 DC Clopidogrel Bisulfate (Plavix) 75 mg DAILY PO 05/20/25 10:00 05/20/25 09:43 Furosemide (Lasix Tablet) 20 mg MWF PO 05/20/25 10:00 05/20/25 09:45 Glyburide (Micronase Tablet) 5 mg DAILY PO 05/20/25 10:00 Multivitamins (Mvi Tab) 1 tab DAILY PO 05/20/25 10:00 Cholecalciferol (Vitamin D3 Tablet) 5,000 unit DAILY PO 05/20/25 10:00 05/20/25 09:47 Digoxin (Lanoxin Tablet) 0.25 mg DAILY PO 05/20/25 10:00 05/20/25 09:42 Patient Own Medication 15 mg DAILY PO 05/20/25 10:00 Medroxyprogesterone Acetate (Provera Tablet) 10 mg DAILY PO 05/20/25 10:00 Patient Own Medication 1 tab BID PO 05/20/25 10:00 Doxycycline Hyclate 100 ml @ 50 mls/hr Q12H IV 05/20/25 15:29 05/20/25 18:12 DC Aspirin (Ecotrin Enteric Coated Tablet) 81 mg DAILY PO 05/21/25 10:00 Doxycycline Hyclate 100 ml @ 50 mls/hr Q12H IV 05/20/25 20:00 Review of Systems Constitutional: Yes: Fever, Chills, Weakness, Malaise; No: Sweats, Other Eyes: No: Pain, Vision change, Conjunctivae inflammation, Eyelid inflammation, Other, Redness ENT: No: Ear pain, Ear discharge, Nose pain, Nose discharge, Nose congestion, Mouth pain, Mouth swelling, Throat pain, Throat swelling, Other Respiratory: Cough, Shortness of breath, SOB with excertion, Wheezing, Sputum (yellow), Wheezing; No: Dry, Hemoptysis, Pleuritic Pain, Other Cardiovascular: No: Chest Pain, Palpitations, Orthopnea, Paroxysmal Noc. Dyspnea, Edema, Lt Headedness, Other Gastrointestinal: No: Nausea, Vomiting, Abdominal Pain, Diarrhea, Constipation, Melena, Hematochezia, Other Genitourinary: No Dysuria, No Frequency, No Incontinence, No Hematuria, No Retention, No Other Musculoskeletal: No: other, neck pain, shoulder pain, arm pain, back pain, hand pain, leg pain, foot pain Skin: No: Rash, Lesions, Jaundice, Bruising, Other Neurological: No: Weakness, Numbness, Incoordination, Change in speech, Confusion, Seizures, Other Allergies: Coded Allergies: Griseofulvin (Verified Allergy, Unknown, 05/19/25) Levofloxacin (Verified Allergy, Unknown, 05/19/25) Montelukast (Verified Allergy, Unknown, 05/19/25) Metoprolol (Verified Adverse Reaction, Unknown, 03/07/25) States that she had reaction to Metoprolol before, forgot what reaction was. Uncoded Allergies: IVP dye, Levaquin, Griseofulvin, Montelukast (Allergy, Severe, 11/14/24) IV CONTRAST (Allergy, Unknown, 05/19/25) Medications Current Medications Medications Dose Ordered Sig/Kerry Route Start Time Stop Time Status Last Admin Dose Admin Sodium Chloride 10 ml Q8HR IV 05/19/25 22:00 UNV Acetaminophen/ Hydrocodone Bitart 1 tab Q4HP PRN PO 05/19/25 17:30 UNV Ondansetron HCl 4 mg Q4HP PRN IV 05/19/25 17:30 UNV Docusate Sodium 100 mg BIDPRN PRN PO 05/19/25 17:30 UNV Enoxaparin Sodium 40 mg DAILY SC 05/20/25 10:00 UNV Zinc Sulfate 220 mg DAILY PO 05/20/25 10:00 UNV Ascorbic Acid 500 mg BID PO 05/19/25 22:00 UNV Multivitamins 1 tab DAILY PO 05/20/25 10:00 UNV Acetaminophen 650 mg Q6HP PRN PO 05/19/25 17:30 UNV Vital Signs Vital Signs Date Time Temp Pulse Resp B/P (MAP) Pulse Ox O2 Delivery O2 Flow Rate FiO2 05/20/25 17:00 97.4 79 18 118/88 (98) 96 97.4 05/20/25 10:30 Nasal Cannula 4.0 05/20/25 10:30 32 Physical Exam Vital Signs Date Time Temp Pulse Resp B/P (MAP) Pulse Ox O2 Delivery O2 Flow Rate FiO2 05/19/25 15:14 100.8 81 18 112/70 (84) 93 100.8 General Appearance: Alert, Oriented X3, Cooperative, mild distress HEENT: Atraumatic, PERRLA Respiratory: Other (Diminished breath sounds, wheezing) Cardiovascular: Regular rate, Normal S1, Normal S2 Abdominal: Normal bowel sounds, Soft, No tenderness Extremities: No clubbing, No cyanosis, No edema, Normal pulses, No tenderness/swelling Skin: No rashes, No breakdown, No significant lesion Neuro: Normal gait, Normal speech, Strength at 5/5 X4 ext, Normal tone Psych/Mental Status: Mental status NL, Mood NL Labs/Diagnostic Data Labs Test 05/20/25 08:39 05/19/25 18:48 05/19/25 16:39 05/19/25 13:17 Range/Units White Blood Count 12.2 H 4.4-10.8 10^3/uL Red Blood Count 4.17 4.0-5.20 10^6/uL Hemoglobin 12.2 12.2-16.2 g/dL Hematocrit 36.7 36.0-46.0 % Mean Corpuscular Volume 88.0 80.0-100.0 fL Mean Corpuscular Hemoglobin 29.2 28.0-32.0 pg Mean Corpuscular Hemoglobin Concent 33.2 32.0-36.0 g/dL Red Cell Distribution Width 15.4 H 11.8-14.3 % Platelet Count 177 140-450 10^3/uL Mean Platelet Volume 8.2 6.9-10.8 fL Neutrophils (%) (Auto) 86.8 H 37.0-80.0 % Lymphocytes (%) (Auto) 6.2 L 10.0-50.0 % Monocytes (%) (Auto) 6.7 0.0-12.0 % Eosinophils (%) (Auto) 0.0 0.0-7.0 % Basophils (%) (Auto) 0.3 0.0-2.0 % Neutrophils # (Auto) 10.6 H 1.6-8.6 10 ^3/uL Lymphocytes # (Auto) 0.8 0.4-5.4 10 ^3/uL Monocytes # (Auto) 0.8 0-1.3 10 ^3/uL Eosinophils # (Auto) 0 0-0.8 10 ^3/uL Basophils # (Auto) 0 0-0.2 10 ^3/uL Nucleated Red Blood Cells 0.0 % Sodium Level 137 136-145 mmol/L Potassium Level 4.7 3.5-5.1 mmol/L Chloride Level 99 98-107 mmol/L Carbon Dioxide Level 28 20-31 mmol/L Anion Gap 10 5-15 Blood Urea Nitrogen 13 9-23 mg/dL Creatinine 1.08 H 0.550-1.02 mg/dL Glomerular Filtration Rate Calc 54 >90 mL/min BUN/Creatinine Ratio 12.0 10.0-20.0 Serum Glucose 174 H 74-106 mg/dL Hemoglobin A1c 6.3 H <5.7 % A1C Calcium Level 8.6 L 8.7-10.4 mg/dL Total Bilirubin 0.8 0.2-1.0 mg/dL Aspartate Amino Transferase (AST) 43 H 13-40 U/L Alanine Aminotransferase (ALT) 20 7-40 U/L Alkaline Phosphatase 34 L 46-116 U/L Total Protein 6.7 5.7-8.2 g/dL Albumin 3.9 3.2-4.8 g/dL D-Dimer, Quantitative 0.78 H 0.0-0.49 mg/L FEU Troponin I High Sensitivity 7 </=34 ng/L Magnesium Level 2.1 1.6-2.6 mg/dL Lipase 28 12-53 U/L Thyroid Stimulating Hormone (TSH) 0.99 0.55-4.78 uIU/mL Test 05/19/25 13:12 05/19/25 13:07 Range/Units Lactic Acid Level 1.3 0.4-2.0 mmol/L B-Type Natriuretic Peptide 277.05 0-100 pg/mL Urine Color Yellow Yellow Urine Clarity Clear Clear Urine pH 5.5 5.0-9.0 Urine Specific [place] 1.020 1.001-1.035 Urine Protein Trace H Negative Urine Ketones 1+ H Negative Urine Blood Negative Negative /uL Urine Nitrite Negative Negative Urine Bilirubin Negative Negative Urine Urobilinogen Normal Negative mg/dL Urine Leukocyte Esterase Negative Negative /uL Urine RBC 2 0 - 4 /hpf Urine Microscopic WBC 3 0-5 /HPF Urine Squamous Epithelial Cells Few <5 /hpf Urine Bacteria None seen None Seen /hpf Urine Mucus Few None Seen Urine Glucose Normal Normal mg/dL Influenza Type A Antigen Negative Negative Influenza Type B Antigen Negative Negative SARS-CoV-2 Antigen (Rapid) Positive NEGATIVE Microbiology Date/Time Source Procedure Growth Status 05/19/25 13:17 Blood Blood Culture - Preliminary NO GROWTH AFTER 24 HOURS OF INCUBATION. Resulted PATIENT: JUAN MANUEL CHAVEZ ACCT: [id number] UNIT: [id number] : 1950 LOC: CENTRAL ROOM / BED: [facility] / B AGE / SEX: 74 / F ADM STATUS: ADM IN SERVICE 1322 ORDERING PHYSICIAN: ORLANDO BOUCHER MD PROCEDURE(s): ABPL - CT AB PEL WO CON-NO ORAL OR IV REASON: Hematuria ORDER NUMBER(s): [id number], ACCESSION NUMBER(s): [id number] EXAM: CT CT AB PEL WO CON-NO ORAL OR IV INDICATION: Hematuria TECHNIQUE: Volumetric multidetector CT images of the abdomen and pelvis were obtained without contrast. All CT scans at this facility use dose modulation, iterative reconstruction, and/or weight based dosing when appropriate to reduce radiation dose to as low as reasonably achievable. COMPARISON: None FINDINGS: [LOWER CHEST]: Atelectasis in the right lung base. Left atrial appendage occlusion device. The cardiac size is normal without pericardial effusion. coronary artery calcifications. [LIVER]: Normal hepatic size without suspicious focal lesion. [GALLBLADDER AND BILIARY TREE]: No cholelithiasis. [SPLEEN]: Unremarkable. [PANCREAS]: Unremarkable. [ADRENAL GLANDS]: Unremarkable [KIDNEYS]: No hydronephrosis. No nephroureterolithiasis. [BLADDER]: Unremarkable for the degree distention. [REPRODUCTIVE ORGANS]: Hysterectomy [BOWEL/MESENTERY]: Postsurgical changes to the stomach. Normal appendix. No CT evidence of bowel obstruction. [ASCITES]: Absent [LYMPHADENOPATHY]: No pathologically enlarged lymph nodes by CT size criteria [VASCULATURE]: No aneurysmal dilatation. [ABDOMINAL WALL]: Unremarkable. [MUSCULOSKELETAL]: No acute fracture or aggressive focal osseous lesion. Multifocal degenerative change of the visualized spine. IMPRESSION: 1. No CT evidence of an acute abdominal/pelvic process. 2. No hydroureteronephrosis or nephroureterolithiasis. 3. Bladder is decompressed. 4. Minimal asymmetric right [id number]-left perinephric edema which may reflect acute kidney injury. ATED BY: VALENTE SYLVESTER MD DICTATED DATE/TIME: 03/07/25 5866 SIGNED BY: VALENTE SYLVESTER MD SIGNED DATE/TIME: 03/07/25 145 CC: Assessment "Complex UTI" Hematuria Dysuria s/p Gener reassignment surgery Plan/Recommendation No acute intervention indicated. PSA Follow up with Dr. Fragoso after discharge. Plan discussed with: Patient MEILNDA ESTRADA MD May 20, 2025 20:18
[2025-05-20] MEDS: DOXYCYCLINE 100MG/100ML 100 ML IV SCH (20:32)
[2025-05-21] VITALS (11 sets, daily range): BP systolic 117–155; BP diastolic 55–90; PULSE 63–85; RESP 16–20; TEMP 97.3–98.3; O2SAT 92–98
--- NOTE | 2025-05-21 07:42 | DVHPN2 ---
Progress Note - Dictate Date Seen: May 21, 2025 Medical Necessity Reason Pt with a Central, PICC or Fol: No vital signs Vital Sign Date Time Temp Pulse Resp B/P (MAP) Pulse Ox O2 Delivery O2 Flow Rate FiO2 05/21/25 05:00 97.3 67 20 136/59 (84) 96 97.3 05/20/25 22:57 Nasal Cannula 4.0 05/20/25 22:57 32 Total Intake and Output 05/20/25 05/20/25 05/21/25 15:00 23:00 07:00 Intake Total 240 ml 2620 ml 1200 ml Balance 240 ml 2620 ml 1200 ml medications Current Medications Medications Dose Ordered Sig/Kerry Route Start Time Stop Time Status Last Admin Dose Admin Sodium Chloride 10 ml Q8HR IV 05/19/25 22:00 05/21/25 06:07 10 ML Acetaminophen/ Hydrocodone Bitart 1 tab Q4HP PRN PO 05/19/25 17:30 Ondansetron HCl 4 mg Q4HP PRN IV 05/19/25 17:30 Docusate Sodium 100 mg BIDPRN PRN PO 05/19/25 17:30 Enoxaparin Sodium 40 mg DAILY SC 05/20/25 10:00 05/20/25 09:48 40 MG Ascorbic Acid 500 mg BID PO 05/19/25 22:00 05/20/25 22:22 500 MG Acetaminophen 650 mg Q6HP PRN PO 05/19/25 17:30 05/19/25 23:41 650 MG Zinc Sulfate 220 mg DAILY PO 05/20/25 10:00 Albuterol 90 mcg TIDPRN PRN IN 05/19/25 17:30 05/19/25 22:29 90 MCG Dexamethasone Sodium Phosphate 6 mg DAILY IV 05/20/25 10:00 05/30/25 09:59 05/20/25 09:40 6 MG Clopidogrel Bisulfate 75 mg DAILY PO 05/20/25 10:00 05/20/25 09:43 75 MG Furosemide 20 mg MWF PO 05/20/25 10:00 05/20/25 09:45 20 MG Glyburide 5 mg DAILY PO 05/20/25 10:00 Multivitamins 1 tab DAILY PO 05/20/25 10:00 Cholecalciferol 5,000 unit DAILY PO 05/20/25 10:00 05/20/25 09:47 5,000 UNIT Digoxin 0.25 mg DAILY PO 05/20/25 10:00 05/20/25 09:42 0.25 MG Patient Own Medication 15 mg DAILY PO 05/20/25 10:00 Medroxyprogesterone Acetate 10 mg DAILY PO 05/20/25 10:00 Patient Own Medication 1 tab BID PO 05/20/25 10:00 Aspirin 81 mg DAILY PO 05/21/25 10:00 Doxycycline Hyclate 100 ml @ 50 mls/hr Q12H IV 05/20/25 20:00 05/20/25 20:32 50 MLS/HR laboratory and microbiology Laboratory Tests 05/20/25 08:39 Test 05/20/25 08:39 Range/Units Serum Glucose 174 H 74-106 mg/dL Assessment/Plan Patient is a 74-year-old female (transgender: male to female) who presented with few days of flu-like symptoms (cough/nasal congestion/fever/body pains). Was found to have oxygen saturation of 95% in emergency room. Was found to be positive COVID-19 and is admitted for COVID pneumonia. Cardiology is involved for cardiac aspects of care. Patient is known to us from before and outside. Does have history of coronary artery disease and has had PCI/stent in LAD (November 2024) for which is kept on aspirin/Plavix as outpatient. Denies any chest pains. Denies loss of consciousness/palpitation/dizziness. Obese, not in acute distress. Sitting in bed. No JVD. Mucosa is pink and wet. No carotid bruit. Not using accessory muscles of breathing. Gets into coughing episodes intermittently. Scattered rhonchi in the lungs is heard. Cardiac: Regular, no thrill/gallop. Systolic murmur 2/6 in the apex is heard. Abdomen is soft. Bowel sound is positive. There is no gross mass/hepatomegaly. 1+ bilateral edema in lower extremities. Dorsalis pedis is 2+ bilateral Past medical history includes morbid obesity, diabetes mellitus, hypertension, obstructive sleep apnea (on CPAP as outpatient), coronary artery disease, status post PCI, CKD, diastolic heart failure, pulmonary hypertension, paroxysmal AFib (refuses full anticoagulation), status post pacemaker ([facility]) implantation, history of urethral stricture and gastric bypass. Left heart catheterization of November 18, 2024 revealed coronary artery disease and the patient had PCI/drug-eluting stent deployment of LAD. Echocardiogram of August 2024 (performed in the office) revealed ejection fraction of 55-60% WBC: 12.7 - 12.2 D-dimer: 0.78 BNP: 277.05 Troponin (high sensitive): 7 - 8 - 7 Creatinine: 1.05 - 1.08 Potassium: 4.6 - 4.7 COVID-19: Positive Chest x-ray revealed: Lines and Tubes: None Lungs: No focal consolidation. Elevated right hemidiaphragm with right basilar linear density. Pleura: No effusion. No pneumothorax. Cardiomediastinal contours: Unremarkable. Left-sided approach single lead pacemaker terminating within the right ventricle. Bones: No acute osseous abnormality. IMPRESSION: Right basilar linear atelectasis. Otherwise, no evidence for acute cardiopulmonary disease. Repeat chest x-ray revealed: IMPRESSION: 1. No acute cardiopulmonary abnormality or significant change from the prior exam. EKG reveals sinus rhythm with no ST-T changes Patient is a 74-year-old transgender (male to female) who presented with few days of URI. She is found to have COVID pneumonia. Secondary to comorbidities, the patient is considered immunocompromised. COVID pneumonia Coronary artery disease, status post PCI Morbid obesity Diabetes mellitus Hypertension Paroxysmal AFib (refuses full anticoagulation) CKD Cardiac suggestion for management: Manage on telemetry Follow-up electrolytes and kidney function tests and correct abnormalities Continue Aspirin/Plavix Awaiting Echocardiogram (can also be performed as outpatient) Awaiting interrogation of pacemaker ([facility]) (can also be performed as outpatient) Evaluation and management of COVID pneumonia as per primary team/Pulmonary Further evaluation and management depends on the above and clinical course A total of 55 minutes was spent reviewing the patient record, examining the patient, making a diagnostic and therapeutic plan, discussing this plan with medical personnel, following up on diagnostic studies and following the patient for clinical stability excluding any and all procedures. At least 50% of this time was spent in direct, [id number] contact. Thank you for allowing me to participate in this patient's care. Further recommendations will depend on patient's clinical course. Please do not hesitate to contact me if you have any questions or concerns. This medical document was created using electronic medical record system with [employer] dictation system. Although this document has been carefully reviewed, there may still be some phonetic and typographical errors. These areas are purely typographical due to the imperfection of the software programs, and do not reflect any compromise in the patient's medical care. Plan discussed with: Patient, Other (nurse) ROSINA TEIXEIRA MD May 21, 2025 07:42
--- NOTE | 2025-05-21 08:24 | DVHPN2 ---
Reviewed: Care Plan Changes from previous H/P or p: No Changes Eyes: No Pain, No Vision change, No Conjunctivae inflammation, No Eyelid inflammation, No Other, No Redness ENT: No Ear pain, No Ear discharge, No Nose pain, No Nose discharge, No Nose congestion, No Mouth pain, No Mouth swelling, No Throat pain, No Throat swelling, No Other Cardiovascular: No Chest Pain, No Palpitations, No Orthopnea, No Paroxysmal Noc. Dyspnea, No Edema, No Lt Headedness, No Other Respiratory: Cough; No Dry; Shortness of breath, SOB with excertion, Wheezing; No Hemoptysis, No Pleuritic Pain; Sputum (yellow); No Other Gastrointestinal: No Nausea, No Vomiting, No Abdominal Pain, No Diarrhea, No Constipation, No Melena, No Hematochezia, No Other Genitourinary: No Dysuria, No Frequency, No Incontinence, No Hematuria, No Retention, No Other Musculoskeletal: No other, No neck pain, No shoulder pain, No arm pain, No back pain, No hand pain, No leg pain, No foot pain Skin: No Rash, No Lesions, No Jaundice, No Bruising, No Other Objective Vitals Vital Signs Date Time Temp Pulse Resp B/P (MAP) Pulse Ox O2 Delivery O2 Flow Rate FiO2 05/21/25 05:00 97.3 67 20 136/59 (84) 96 97.3 05/20/25 22:57 Nasal Cannula 4.0 05/20/25 22:57 32 Intake/Output Intake and Output 05/21/25 07:00 Intake Total 4060 ml Balance 4060 ml Intake Oral 4060 ml # Voids 9 # Bowel Movements 3 Medications Current Medications Medications Dose Ordered Sig/Kerry Route Start Time Stop Time Status Last Admin Dose Admin Sodium Chloride 10 ml Q8HR IV 05/19/25 22:00 05/21/25 06:07 10 ML Acetaminophen/ Hydrocodone Bitart 1 tab Q4HP PRN PO 05/19/25 17:30 Ondansetron HCl 4 mg Q4HP PRN IV 05/19/25 17:30 Docusate Sodium 100 mg BIDPRN PRN PO 05/19/25 17:30 Enoxaparin Sodium 40 mg DAILY SC 05/20/25 10:00 05/20/25 09:48 40 MG Ascorbic Acid 500 mg BID PO 05/19/25 22:00 05/20/25 22:22 500 MG Acetaminophen 650 mg Q6HP PRN PO 05/19/25 17:30 05/19/25 23:41 650 MG Zinc Sulfate 220 mg DAILY PO 05/20/25 10:00 Albuterol 90 mcg TIDPRN PRN IN 05/19/25 17:30 05/19/25 22:29 90 MCG Dexamethasone Sodium Phosphate 6 mg DAILY IV 05/20/25 10:00 05/30/25 09:59 05/20/25 09:40 6 MG Clopidogrel Bisulfate 75 mg DAILY PO 05/20/25 10:00 05/20/25 09:43 75 MG Furosemide 20 mg MWF PO 05/20/25 10:00 05/20/25 09:45 20 MG Glyburide 5 mg DAILY PO 05/20/25 10:00 Multivitamins 1 tab DAILY PO 05/20/25 10:00 Cholecalciferol 5,000 unit DAILY PO 05/20/25 10:00 05/20/25 09:47 5,000 UNIT Digoxin 0.25 mg DAILY PO 05/20/25 10:00 05/20/25 09:42 0.25 MG Patient Own Medication 15 mg DAILY PO 05/20/25 10:00 Medroxyprogesterone Acetate 10 mg DAILY PO 05/20/25 10:00 Patient Own Medication 1 tab BID PO 05/20/25 10:00 Aspirin 81 mg DAILY PO 05/21/25 10:00 Doxycycline Hyclate 100 ml @ 50 mls/hr Q12H IV 05/20/25 20:00 05/20/25 20:32 50 MLS/HR Laboratory Results Laboratory Tests 05/20/25 08:39 Chemistry Test 05/20/25 08:39 Albumin 3.9 g/dL (3.2-4.8) Calcium Level 8.6 mg/dL (8.7-10.4) L Total Protein 6.7 g/dL (5.7-8.2) LFT Test 05/20/25 08:39 Alanine Aminotransferase (ALT) 20 U/L (7-40) Alkaline Phosphatase 34 U/L (46-116) L Aspartate Amino Transferase (AST) 43 U/L (13-40) H Total Bilirubin 0.8 mg/dL (0.2-1.0) HgA1c, TSH Test 05/20/25 08:39 Hemoglobin A1c 6.3 % A1C (<5.7) H Urinalysis Test 05/19/25 13:07 Urine Color Yellow (Yellow) Urine Clarity Clear (Clear) Urine pH 5.5 (5.0-9.0) Urine Specific Leander 1.020 (1.001-1.035) Urine Protein Trace (Negative) H Urine Ketones 1+ (Negative) H Urine Blood Negative /uL (Negative) Urine Nitrite Negative (Negative) Urine Bilirubin Negative (Negative) Urine Urobilinogen Normal mg/dL (Negative) Urine Leukocyte Esterase Negative /uL (Negative) Urine RBC 2 /hpf (0 - 4) Urine Microscopic WBC 3 /HPF (0-5) Urine Squamous Epithelial Cells Few /hpf (<5) Urine Bacteria None seen /hpf (None Seen) Urine Mucus Few (None Seen) Urine Glucose Normal mg/dL (Normal) Microbiology Microbiology Date/Time Source Procedure Growth Status 05/19/25 13:17 Blood Blood Culture - Preliminary NO GROWTH AFTER 24 HOURS OF INCUBATION. Resulted Labs and/or images reviewed: Labs reviewed by me, Image(s) reviewed by me Assessment/Plan Assessment/Plan 74-year-old transgender (male to female) Pneumonia due to COVID-19 virus, azithromycin albuterol Atrovent zinc vitamin-C vitamin D3 Acute hypoxic respiratory failure Hyperglycemia, Hypertension, Diabetes Hematuria and complicated UTI seen by Urology Dr. Whitman advised outpatient follow up with the patient's urologist Dr. Fragoso Obstructive sleep apnea on CPAP at home Acute chronic congestive heart failure exacerbation: Digoxin Lasix, cardiology consult by Dr. Gibson appreciated History of pacemaker interrogation ordered Echocardiogram pending Time Spent 50 minutes Advanced care planning time 20 minutes Patient is full code SHANI Peguero at the bedside during examination Plan discussed with: Patient, Other (SHANI Peguero) My Orders Orders - ORLANDO BOUCHER MD Procedure Category Date Status Time * Urology Consult CONS 05/20/25 Transmitted 14:38 Doxycycline PHA 05/20/25 In Process 100mg/100ml 20:00 Date of Service: May 21, 2025 Billing Provider: ORLANDO BOUCHER MD Common Visit Codes: [id number] INP/OBS CARE(HIGH) ORLANDO BOUCHER MD May 21, 2025 08:24
[2025-05-21] MEDS: ASPirin-EC 81 mg tab PO SCH (10:00)
[2025-05-21] MEDS: DOXYCYCLINE 100 MG TAB/CAP PO SCH (10:02)
[2025-05-22 01:00] VITALS: BP 118/60; PULSE 75; RESP 14; TEMP 98.2; O2SAT 95
[2025-05-22 05:00] VITALS: BP 117/53; PULSE 66; RESP 16; TEMP 98.2; O2SAT 97
--- NOTE | 2025-05-22 07:53 | DVHSR ---
APPROVED REPORT EXAM: LIMITED Two-dimensional and M-mode echocardiogram with Doppler and color Doppler. Blood Pressure: 136/79 mmHg INDICATION CAD/STENT Surgery/Intervention Pacemaker: RISK FACTORS Obesity: Height: 6'1, Weight: 350 DIMENSIONS LVDd 4.9 (3.8-5.7cm) LA (2D) 4.4 (1.9-4.0cm) Aortic Root 3.6 (2.0-3.7cm) LVDs 3.3 (2.5-4.0cm) LA (MM) (1.9-4.0cm) Aortic Cusp Exc 2.0 (1.5-2.0cm) EF (%) 55.0 (55-70%) Rt. Atrium 4.7 (1.9-4.0cm) Asc. Aorta cm IVSd 1.1 (0.7-1.1cm) RV (D) 6.6 (1.8-2.4cm) PWd 1.1 (0.7-1.1cm) Mitral Valve Mitral Mitral Stenosis E wave 1.26m/s MV Mean GR. 2mmHg A wave m/s MV Peak GR. 6mmHg E/A ratio 0.0 2D MVA cm2 DECEL Time 165ms PRESS 1/2 Time ms Aortic Valve Aortic Valve Aortic Stenosis V1 1.15m/s AO Mean GR. 4mmHg V2 1.23m/s AO Peak GR. 6mmHg LVOT Diameter 2.6 (1.8-2.4cm) Doppler DAYSI 4.96cm2 Pulmonic Valve V2 1.17m/s Tricuspid Valve TR Velocity 3.22m/s RVSP 41mmHg Other Information Quality : Technically Limited Rhythm : Technically limited study due to PT Coughing throughout entire exam and sitting up. body habitus.patient position. Conclusion Technically limited study secondary to poor acoustic windows Left ventricle: Mild concentric left ventricular hypertrophy was seen. LVEF was 55-60%. There was no gross wall motion abnormality. Right ventricle was mildly dilated with preserved systolic function. Both atria were mildly dilated. Aortic valve: Aortic valve was trileaflet. There was no aortic insufficiency/stenosis. There was trace mitral/tricuspid regurgitation. Pulmonary valve was not well visualized. Right ventricular systolic pressure was assessed at 45 mm Hg. There was no pericardial effusion.
--- NOTE | 2025-05-22 07:54 | DVHPN2 ---
Progress Note - Dictate Date Seen: May 22, 2025 Medical Necessity Reason Pt with a Central, PICC or Fol: No vital signs Vital Sign Date Time Temp Pulse Resp B/P (MAP) Pulse Ox O2 Delivery O2 Flow Rate FiO2 05/22/25 05:00 98.2 66 16 117/53 (74) 97 98.2 05/21/25 20:00 Nasal Cannula* 4 36 Total Intake and Output 05/21/25 05/21/25 05/22/25 15:00 23:00 07:00 Intake Total 830 ml 450 ml Balance 830 ml 450 ml medications Current Medications Medications Dose Ordered Sig/Kerry Route Start Time Stop Time Status Last Admin Dose Admin Sodium Chloride 10 ml Q8HR IV 05/19/25 22:00 05/22/25 06:13 10 ML Acetaminophen/ Hydrocodone Bitart 1 tab Q4HP PRN PO 05/19/25 17:30 Ondansetron HCl 4 mg Q4HP PRN IV 05/19/25 17:30 Docusate Sodium 100 mg BIDPRN PRN PO 05/19/25 17:30 Enoxaparin Sodium 40 mg DAILY SC 05/20/25 10:00 05/21/25 09:59 40 MG Ascorbic Acid 500 mg BID PO 05/19/25 22:00 05/21/25 21:12 500 MG Acetaminophen 650 mg Q6HP PRN PO 05/19/25 17:30 05/21/25 16:12 650 MG Zinc Sulfate 220 mg DAILY PO 05/20/25 10:00 05/21/25 10:00 220 MG Albuterol 90 mcg TIDPRN PRN IN 05/19/25 17:30 05/21/25 16:27 90 MCG Dexamethasone Sodium Phosphate 6 mg DAILY IV 05/20/25 10:00 05/30/25 09:59 05/21/25 10:03 6 MG Clopidogrel Bisulfate 75 mg DAILY PO 05/20/25 10:00 05/21/25 10:01 75 MG Furosemide 20 mg MWF PO 05/20/25 10:00 05/20/25 09:45 20 MG Glyburide 5 mg DAILY PO 05/20/25 10:00 05/21/25 10:43 5 MG Multivitamins 1 tab DAILY PO 05/20/25 10:00 05/21/25 10:01 1 TAB Cholecalciferol 5,000 unit DAILY PO 05/20/25 10:00 05/21/25 10:00 5,000 UNIT Digoxin 0.25 mg DAILY PO 05/20/25 10:00 05/21/25 10:01 0.25 MG Patient Own Medication 15 mg DAILY PO 05/20/25 10:00 Medroxyprogesterone Acetate 10 mg DAILY PO 05/20/25 10:00 05/21/25 10:02 10 MG Patient Own Medication 1 tab BID PO 05/20/25 10:00 Aspirin 81 mg DAILY PO 05/21/25 10:00 05/21/25 10:00 81 MG Doxycycline Monohydrate 100 mg Q12HR PO 05/21/25 10:00 05/21/25 21:12 100 MG laboratory and microbiology Laboratory Tests 05/20/25 08:39 Test 05/20/25 08:39 Range/Units Serum Glucose 174 H 74-106 mg/dL Assessment/Plan Patient is a 74-year-old female (transgender: male to female) who presented with few days of flu-like symptoms (cough/nasal congestion/fever/body pains). Was found to have oxygen saturation of 95% in emergency room. Was found to be positive COVID-19 and is admitted for COVID pneumonia. Cardiology is involved for cardiac aspects of care. Patient is known to us from before and outside. Does have history of coronary artery disease and has had PCI/stent in LAD (November 2024) for which is kept on aspirin/Plavix as outpatient. Denies any chest pains. Denies loss of consciousness/palpitation/dizziness. Obese, not in acute distress. Sitting in bed. No JVD. Mucosa is pink and wet. No carotid bruit. Not using accessory muscles of breathing. Gets into coughing episodes intermittently. Scattered rhonchi in the lungs is heard. Cardiac: Regular, no thrill/gallop. Systolic murmur 2/6 in the apex is heard. Abdomen is soft. Bowel sound is positive. There is no gross mass/hepatomegaly. 1+ bilateral edema in lower extremities. Dorsalis pedis is 2+ bilateral Past medical history includes morbid obesity, diabetes mellitus, hypertension, obstructive sleep apnea (on CPAP as outpatient), coronary artery disease, status post PCI, CKD, diastolic heart failure, pulmonary hypertension, paroxysmal AFib (refuses full anticoagulation), status post pacemaker ([facility]) implantation, history of urethral stricture and gastric bypass. Left heart catheterization of November 18, 2024 revealed coronary artery disease and the patient had PCI/drug-eluting stent deployment of LAD. Echocardiogram of August 2024 (performed in the office) revealed ejection fraction of 55-60% WBC: 12.7 - 12.2 D-dimer: 0.78 BNP: 277.05 Troponin (high sensitive): 7 - 8 - 7 Creatinine: 1.05 - 1.08 Potassium: 4.6 - 4.7 COVID-19: Positive Chest x-ray revealed: Lines and Tubes: None Lungs: No focal consolidation. Elevated right hemidiaphragm with right basilar linear density. Pleura: No effusion. No pneumothorax. Cardiomediastinal contours: Unremarkable. Left-sided approach single lead pacemaker terminating within the right ventricle. Bones: No acute osseous abnormality. IMPRESSION: Right basilar linear atelectasis. Otherwise, no evidence for acute cardiopulmonary disease. Repeat chest x-ray revealed: IMPRESSION: 1. No acute cardiopulmonary abnormality or significant change from the prior exam. EKG reveals sinus rhythm with no ST-T changes Echocardiogram revealed: Technically limited study secondary to poor acoustic windows. Left ventricle: Mild concentric left ventricular hypertrophy was seen. LVEF was 55-60%. There was no gross wall motion abnormality. Right ventricle was mildly dilated with preserved systolic function. Both atria were mildly dilated. Aortic valve: Aortic valve was trileaflet. There was no aortic insufficiency/stenosis. There was trace mitral/tricuspid regurgitation. Pulmonary valve was not well visualized. Right ventricular systolic pressure was assessed at 45 mm Hg. There was no pericardial effusion. Patient is a 74-year-old transgender (male to female) who presented with few days of URI. She is found to have COVID pneumonia. Secondary to comorbidities, the patient is considered immunocompromised. COVID pneumonia Coronary artery disease, status post PCI Morbid obesity Diabetes mellitus Hypertension Paroxysmal AFib (refuses full anticoagulation) CKD Cardiac suggestion for management: Manage on telemetry Follow-up electrolytes and kidney function tests and correct abnormalities Continue Aspirin/Plavix Awaiting interrogation of pacemaker ([facility]) (can also be performed as outpatient) Cardiac tena, stable Evaluation and management of COVID pneumonia as per primary team/Pulmonary Further evaluation and management depends on the above and clinical course A total of 55 minutes was spent reviewing the patient record, examining the patient, making a diagnostic and therapeutic plan, discussing this plan with medical personnel, following up on diagnostic studies and following the patient for clinical stability excluding any and all procedures. At least 50% of this time was spent in direct, [id number] contact. Thank you for allowing me to participate in this patient's care. Further recommendations will depend on patient's clinical course. Please do not hesitate to contact me if you have any questions or concerns. This medical document was created using electronic medical record system with [employer] computerized dictation system. Although this document has been carefully reviewed, there may still be some phonetic and typographical errors. These areas are purely typographical due to the imperfection of the software programs, and do not reflect any compromise in the patient's medical care. Plan discussed with: Patient, Other (nurse) ROSINA TEIXEIRA MD May 22, 2025 07:54
[2025-05-22] MEDS ORDERED: ASCO1TAB27 PO (08:15)
[2025-05-22] MEDS ORDERED: METH4PAK PO (08:15)
[2025-05-22] MEDS ORDERED: CHOL3000 PO (08:15)
[2025-05-22] MEDS ORDERED: ALBUAER3 IN (08:15)
[2025-05-22] MEDS ORDERED: DOXY100C79 PO (08:15)
[2025-05-22 08:20] VITALS: BP 136/74; PULSE 73; RESP 20; TEMP 98.3; O2SAT 97
--- NOTE | 2025-05-22 08:26 | DVHPN2 ---
Reviewed: Care Plan Changes from previous H/P or p: No Changes Eyes: No Pain, No Vision change, No Conjunctivae inflammation, No Eyelid inflammation, No Other, No Redness ENT: No Ear pain, No Ear discharge, No Nose pain, No Nose discharge, No Nose congestion, No Mouth pain, No Mouth swelling, No Throat pain, No Throat swelling, No Other Cardiovascular: No Chest Pain, No Palpitations, No Orthopnea, No Paroxysmal Noc. Dyspnea, No Edema, No Lt Headedness, No Other Respiratory: Cough; No Dry; Shortness of breath, SOB with excertion, Wheezing; No Hemoptysis, No Pleuritic Pain; Sputum (yellow); No Other Gastrointestinal: No Nausea, No Vomiting, No Abdominal Pain, No Diarrhea, No Constipation, No Melena, No Hematochezia, No Other Genitourinary: No Dysuria, No Frequency, No Incontinence, No Hematuria, No Retention, No Other Musculoskeletal: No other, No neck pain, No shoulder pain, No arm pain, No back pain, No hand pain, No leg pain, No foot pain Skin: No Rash, No Lesions, No Jaundice, No Bruising, No Other Objective Vitals Vital Signs Date Time Temp Pulse Resp B/P (MAP) Pulse Ox O2 Delivery O2 Flow Rate FiO2 05/22/25 05:00 98.2 66 16 117/53 (74) 97 98.2 05/21/25 20:00 Nasal Cannula* 4 36 Intake/Output Intake and Output 05/22/25 07:00 Intake Total 1280 ml Balance 1280 ml Intake Oral 1280 ml # Voids 6 # Bowel Movements 1 Medications Current Medications Medications Dose Ordered Sig/Kerry Route Start Time Stop Time Status Last Admin Dose Admin Sodium Chloride 10 ml Q8HR IV 05/19/25 22:00 05/22/25 06:13 10 ML Acetaminophen/ Hydrocodone Bitart 1 tab Q4HP PRN PO 05/19/25 17:30 Ondansetron HCl 4 mg Q4HP PRN IV 05/19/25 17:30 Docusate Sodium 100 mg BIDPRN PRN PO 05/19/25 17:30 Enoxaparin Sodium 40 mg DAILY SC 05/20/25 10:00 05/21/25 09:59 40 MG Ascorbic Acid 500 mg BID PO 05/19/25 22:00 05/21/25 21:12 500 MG Acetaminophen 650 mg Q6HP PRN PO 05/19/25 17:30 05/21/25 16:12 650 MG Zinc Sulfate 220 mg DAILY PO 05/20/25 10:00 05/21/25 10:00 220 MG Albuterol 90 mcg TIDPRN PRN IN 05/19/25 17:30 05/21/25 16:27 90 MCG Dexamethasone Sodium Phosphate 6 mg DAILY IV 05/20/25 10:00 05/30/25 09:59 05/21/25 10:03 6 MG Clopidogrel Bisulfate 75 mg DAILY PO 05/20/25 10:00 05/21/25 10:01 75 MG Furosemide 20 mg MWF PO 05/20/25 10:00 05/20/25 09:45 20 MG Glyburide 5 mg DAILY PO 05/20/25 10:00 05/21/25 10:43 5 MG Multivitamins 1 tab DAILY PO 05/20/25 10:00 05/21/25 10:01 1 TAB Cholecalciferol 5,000 unit DAILY PO 05/20/25 10:00 05/21/25 10:00 5,000 UNIT Digoxin 0.25 mg DAILY PO 05/20/25 10:00 05/21/25 10:01 0.25 MG Patient Own Medication 15 mg DAILY PO 05/20/25 10:00 Medroxyprogesterone Acetate 10 mg DAILY PO 05/20/25 10:00 05/21/25 10:02 10 MG Patient Own Medication 1 tab BID PO 05/20/25 10:00 Aspirin 81 mg DAILY PO 05/21/25 10:00 05/21/25 10:00 81 MG Doxycycline Monohydrate 100 mg Q12HR PO 05/21/25 10:00 05/21/25 21:12 100 MG Laboratory Results Laboratory Tests 05/20/25 08:39 Urinalysis Test 05/19/25 13:07 Urine Color Yellow (Yellow) Urine Clarity Clear (Clear) Urine pH 5.5 (5.0-9.0) Urine Specific [place] 1.020 (1.001-1.035) Urine Protein Trace (Negative) H Urine Ketones 1+ (Negative) H Urine Blood Negative /uL (Negative) Urine Nitrite Negative (Negative) Urine Bilirubin Negative (Negative) Urine Urobilinogen Normal mg/dL (Negative) Urine Leukocyte Esterase Negative /uL (Negative) Urine RBC 2 /hpf (0 - 4) Urine Microscopic WBC 3 /HPF (0-5) Urine Squamous Epithelial Cells Few /hpf (<5) Urine Bacteria None seen /hpf (None Seen) Urine Mucus Few (None Seen) Urine Glucose Normal mg/dL (Normal) Microbiology Microbiology Date/Time Source Procedure Growth Status 05/19/25 13:17 Blood Blood Culture - Preliminary NO GROWTH AFTER 48 HOURS OF INCUBATION. Resulted Labs and/or images reviewed: Labs reviewed by me Assessment/Plan Assessment/Plan 74-year-old transgender (male to female) Pneumonia due to COVID-19 virus, azithromycin albuterol Atrovent zinc vitamin-C vitamin D3 Acute hypoxic respiratory failure on 3 L of oxygen which is his usual home requirement Use of home oxygen Hyperglycemia, Hypertension, Diabetes Hematuria and complicated UTI seen by Urology Dr. Whitman advised outpatient follow up with the patient's urologist Dr. Fragoso Obstructive sleep apnea on CPAP at home Acute chronic congestive heart failure exacerbation: Digoxin Lasix, cardiology consult by Dr. Gibson appreciated, Dr. Gibson cleared for discharge History of pacemaker interrogation ordered Echocardiogram 50 percent ejection fraction Time Spent 50 minutes Advanced care planning time 20 minutes Patient is full code SHANI Stahl at the bedside during examination Patient feels better and agrees with the discharge plan today Plan discussed with: Patient My Orders Orders - ORLANDO BOUCHER MD Procedure Category Date Status Time Doxycycline Tablet PHA 05/21/25 In Process (Vibramycin Tablet) 10:00 Date of Service: May 22, 2025 Billing Provider: ORLANDO BOUCHER MD Common Visit Codes: [id number] INP/OBS CARE(HIGH) ORLANDO BOUCHER MD May 22, 2025 08:26
--- NOTE | 2025-05-22 08:34 | DVHDS2 ---
Discharge Summary Date of Admission May 19, 2025 at 17:19 Date of Discharge: May 22, 2025 Admitting Diagnosis Shortness of breath Wounds: None Labs/Diagnostic Data: Laboratory Results Test 05/21/25 10:39 05/20/25 08:39 05/19/25 18:48 05/19/25 16:39 POC Glucose 122 mg/dl (70-106) White Blood Count 12.2 10^3/uL (4.4-10.8) Red Blood Count 4.17 10^6/uL (4.0-5.20) Hemoglobin 12.2 g/dL (12.2-16.2) Hematocrit 36.7 % (36.0-46.0) Mean Corpuscular Volume 88.0 fL (80.0-100.0) Mean Corpuscular Hemoglobin 29.2 pg (28.0-32.0) Mean Corpuscular Hemoglobin Concent 33.2 g/dL (32.0-36.0) Red Cell Distribution Width 15.4 % (11.8-14.3) Platelet Count 177 10^3/uL (140-450) Mean Platelet Volume 8.2 fL (6.9-10.8) Neutrophils (%) (Auto) 86.8 % (37.0-80.0) Lymphocytes (%) (Auto) 6.2 % (10.0-50.0) Monocytes (%) (Auto) 6.7 % (0.0-12.0) Eosinophils (%) (Auto) 0.0 % (0.0-7.0) Basophils (%) (Auto) 0.3 % (0.0-2.0) Neutrophils # (Auto) 10.6 10 ^3/uL (1.6-8.6) Lymphocytes # (Auto) 0.8 10 ^3/uL (0.4-5.4) Monocytes # (Auto) 0.8 10 ^3/uL (0-1.3) Eosinophils # (Auto) 0 10 ^3/uL (0-0.8) Basophils # (Auto) 0 10 ^3/uL (0-0.2) Nucleated Red Blood Cells 0.0 % Sodium Level 137 mmol/L (136-145) Potassium Level 4.7 mmol/L (3.5-5.1) Chloride Level 99 mmol/L (98-107) Carbon Dioxide Level 28 mmol/L (20-31) Anion Gap 10 (5-15) Blood Urea Nitrogen 13 mg/dL (9-23) Creatinine 1.08 mg/dL (0.550-1.02) Glomerular Filtration Rate Calc 54 mL/min (>90) BUN/Creatinine Ratio 12.0 (10.0-20.0) Serum Glucose 174 mg/dL (74-106) Hemoglobin A1c 6.3 % A1C (<5.7) Calcium Level 8.6 mg/dL (8.7-10.4) Total Bilirubin 0.8 mg/dL (0.2-1.0) Aspartate Amino Transferase (AST) 43 U/L (13-40) Alanine Aminotransferase (ALT) 20 U/L (7-40) Alkaline Phosphatase 34 U/L (46-116) Total Protein 6.7 g/dL (5.7-8.2) Albumin 3.9 g/dL (3.2-4.8) D-Dimer, Quantitative 0.78 mg/L FEU (0.0-0.49) Troponin I High Sensitivity 7 ng/L (</=34) Test 05/19/25 13:17 05/19/25 13:12 05/19/25 13:07 Magnesium Level 2.1 mg/dL (1.6-2.6) Lipase 28 U/L (12-53) Thyroid Stimulating Hormone (TSH) 0.99 uIU/mL (0.55-4.78) Lactic Acid Level 1.3 mmol/L (0.4-2.0) B-Type Natriuretic Peptide 277.05 pg/mL (0-100) Urine Color Yellow (Yellow) Urine Clarity Clear (Clear) Urine pH 5.5 (5.0-9.0) Urine Specific [place] 1.020 (1.001-1.035) Urine Protein Trace (Negative) Urine Ketones 1+ (Negative) Urine Blood Negative /uL (Negative) Urine Nitrite Negative (Negative) Urine Bilirubin Negative (Negative) Urine Urobilinogen Normal mg/dL (Negative) Urine Leukocyte Esterase Negative /uL (Negative) Urine RBC 2 /hpf (0 - 4) Urine Microscopic WBC 3 /HPF (0-5) Urine Squamous Epithelial Cells Few /hpf (<5) Urine Bacteria None seen /hpf (None Seen) Urine Mucus Few (None Seen) Urine Glucose Normal mg/dL (Normal) Influenza Type A Antigen Negative (Negative) Influenza Type B Antigen Negative (Negative) SARS-CoV-2 Antigen (Rapid) Positive (NEGATIVE) Other Laboratory Tests 05/20/25 08:39 Brief Hx & Hospital Course: 74-year-old transgender (male to female) with a history of hypertension diabetes obstructive sleep apnea on CPAP congestive heart failure on home oxygen 3 L/min admitted for shortness of breaths found to have COVID-19 pneumonia treated with doxycycline albuterol Atrovent zinc vitamin-C vitamin D3 seen by Cardiology Dr. Gibson echocardiogram 50 percent ejection fraction. Continued home medications Lasix digoxin also had hematuria and complicated UTI seen by Urology Dr. Rodríguez who advised the patient to follow up with the his primary urology Dr. Fragoso. At the time of discharge patient is afebrile ambulating stable vital signs on 3 L of oxygen which is usual requirement. Time in the patient in the presence of SHANI Stahl and discussed discharge plan and he agrees medications transmitted to [facility] he will follow up with the primary Dr who is also his care specialist Dr. Gibson. Consults/Reason for consult Cardiology Dr. Gibson Operations or Procedures Echocardiogram Condition at Discharge: Fair Final Diagnosis/Problems List 74-year-old transgender (male to female) Pneumonia due to COVID-19 virus, azithromycin albuterol Atrovent zinc vitamin-C vitamin D3 Acute hypoxic respiratory failure on 3 L of oxygen which is his usual home requirement Use of home oxygen Hyperglycemia, Hypertension, Diabetes Hematuria and complicated UTI seen by Urology Dr. Whitman advised outpatient follow up with the patient's urologist Dr. Fragoso Obstructive sleep apnea on CPAP at home Acute chronic congestive heart failure exacerbation: Digoxin Lasix, cardiology consult by Dr. Gibson appreciated, Dr. Gibson cleared for discharge History of pacemaker interrogation ordered Echocardiogram 50 percent ejection fraction Discharge Disposition: Home Discharge Instruct/Medications Diet: Cardiac 2g Na,low cholest Activity: Light activity Follow Up/Referral: Resume all previous home medications Follow up with the primary Dr Dr. Gibson Medications: Doxycycline Vitamin-C Vitamin D3 Medrol Dosepak Ventolin MDI Transmitted to [facility] Scheduled Ascorbic Acid (Vitamin C 500 mg), 1 TAB PO BID Cholecalciferol (Vitamin D), 5,000 UNIT PO DAILY, (Reported) Cholecalciferol (Vitamin D3), 3,000 UNIT PO DAILY Clopidogrel Bisulfate (Plavix), 75 MG PO DAILY, (Reported) Digoxin (Digoxin), 250 MCG PO DAILY, (Reported) Doxycycline (Monohydrate) (Doxycycline), 100 MG PO BID Escitalopram Oxalate (Lexapro), 15 MG PO DAILY, (Reported) Estradiol (Estradiol), 1 TAB PO BID, (Reported) Furosemide (Furosemide), 1 TAB PO Sunday Fr, (Reported) Glyburide (Glyburide), 5 MG PO DAILY, (Reported) Medroxyprogesterone Acetate (Medroxyprogesterone Aceta), 10 MG PO DAILY, (Reported) Methylprednisolone (Medrol Dosepak), 4 MG PO UD Multiple Vitamin (Multi Vitamin), 1 TAB PO DAILY, (Reported) Nebivolol Hcl (Bystolic), 1.5 TAB PO DAILY, (Reported) Scheduled PRN Albuterol Sulfate (Ventolin Mdi), 90 MCG IN QID PRN Miscellaneous Medications Doxepin HCl (Doxepin Hydrochloride), 10 MG PO, (Reported) Magnesium Oxide (Magnesium Oxide), Unknown Dose, (Reported) Discontinued Medications Cephalexin (Keflex Capsule), 1 CAP PO QID 39 (Time taken for discharge summary 39 minutes) Discharge Statement: "Patient was advised to return to the ER or call 911 if any headaches, dizziness, shortness of breath, chest pain, abdominal pain, bleeding, fevers, or worsening of medical condition. Patient was counseled about treatment plan, medications, possible side effects, patientverbalized understanding. All questions were answered to the best of my ability. This discharge took greater then 30 minutes in planning, reviewing documentation, counseling the patient, and discussing with other team members." ASSESSMENT ASSESSMENT Hospital Course Improved Assessment 74-year-old transgender (male to female) Pneumonia due to COVID-19 virus, azithromycin albuterol Atrovent zinc vitamin-C vitamin D3 Acute hypoxic respiratory failure on 3 L of oxygen which is his usual home requirement Use of home oxygen Hyperglycemia, Hypertension, Diabetes Hematuria and complicated UTI seen by Urology Dr. Whitman advised outpatient follow up with the patient's urologist Dr. Fragoso Obstructive sleep apnea on CPAP at home Acute chronic congestive heart failure exacerbation: Digoxin Lasix, cardiology consult by Dr. Gibson appreciated, Dr. Gibson cleared for discharge History of pacemaker interrogation ordered Echocardiogram 50 percent ejection fraction Date of Service: May 22, 2025 Billing Provider: ORLANDO BOUCHER MD Common Visit Codes: [id number] INP/OBS CARE(HIGH) ORLANDO BOUCHER MD May 22, 2025 08:34
[2025-05-22 10:00] VITALS: O2SAT 97
[2025-05-22 10:56] VITALS: BP 136/74; PULSE 73; TEMP 36.8
[2025-05-22 12:20] VITALS: BP 114/71; PULSE 65; RESP 19; TEMP 97.8; O2SAT 93
== END 2025-05-22 12:50 | disposition home or self-care (01) | DRG 177 ==
LOC: ER 11:05 → OVERFLOW 17:19 → CENTRAL 05-20 04:15
PROVIDERS: ADMIT Family Medicine; ATTEND Family Medicine
DX: U07.1 COVID-19 (principal); J12.82 Pneumonia due to coronavirus disease 2019; J96.01 Acute respiratory failure with hypoxia; I50.32 Chronic diastolic (congestive) heart failure; N39.0 Urinary tract infection, site not specified; Z79.02 Long term (current) use of antithrombotics/antiplatelets; I13.0 Hypertensive heart and chronic kidney disease with heart failure and stage 1 through stage 4 chronic kidney disease, or unspecified chronic kidney disease; E11.65 Type 2 diabetes mellitus with hyperglycemia; E66.01 Morbid (severe) obesity due to excess calories; N18.9 Chronic kidney disease, unspecified; Z68.42 Body mass index [BMI] 45.0-49.9, adult; E11.22 Type 2 diabetes mellitus with diabetic chronic kidney disease; F64.0 Transsexualism; G47.33 Obstructive sleep apnea (adult) (pediatric); I25.10 Atherosclerotic heart disease of native coronary artery without angina pectoris; I48.0 Paroxysmal atrial fibrillation; Z96.659 Presence of unspecified artificial knee joint; Z79.82 Long term (current) use of aspirin; Z79.84 Long term (current) use of oral hypoglycemic drugs; Z79.899 Other long term (current) drug therapy; Z80.0 Family history of malignant neoplasm of digestive organs; Z82.0 Family history of epilepsy and other diseases of the nervous system; Z82.49 Family history of ischemic heart disease and other diseases of the circulatory system; Z87.891 Personal history of nicotine dependence; Z88.1 Allergy status to other antibiotic agents; Z88.8 Allergy status to other drugs, medicaments and biological substances; Z91.041 Radiographic dye allergy status; Z95.0 Presence of cardiac pacemaker; Z95.5 Presence of coronary angioplasty implant and graft; Z98.84 Bariatric surgery status
CPT/HCPCS: 36415; 71045; 80048; 80053; 81001; 82962; 83036; 83605; 83690; 83735; 83880; 84443; 84484; 85025; 85379; 87040; 87426; 87804; 93306; 94640; 96365; 99291; G0378; J1100